=== PATIENT | male | born 1980 | race Caucasian/White ===

== ENCOUNTER 2021-09-02 18:29 | Outpatient (CLI) | payer MEDICAID | END 2021-09-02 18:30 | disposition critical access hospital (66) | LOC: EMS 18:29 | DX: R41.82 Altered mental status, unspecified (principal); R06.89 Other abnormalities of breathing | CPT/HCPCS: A0425; A0427; A0999 ==

== ENCOUNTER 2021-09-02 18:56 | Emergency (ER) | payer BC, MEDICAID ==
[2021-09-02] MEDS ORDERED: KETAMINE 500 MG/10 ML VIAL IM STA (19:04)
--- NOTE | 2021-09-02 19:12 | ED Physician Documentation ---
History of Present Illness - Stated complaint Stated Complaint: AMS - Chief complaint Chief Complaint: Neuro - History obtained from History obtained from: EMS - History of Present Illness Timing: Today Pain level max: 0 Pain level now: 0 - Additonal information Additional information: 41-year-old male was found in a parking lot in a vehicle with altered mental status. EMS gave Narcan and the patient is now awake and combative. Patient is incoherent and not making sense. No history available from patient. Review of Systems Unable to obtain: AMS, Intoxicated PD PAST MEDICAL HISTORY - Past Medical History Past Medical History: No - Present Medications Home Medications: Ambulatory Orders Medication Instructions Recorded Confirmed Home Medications Unobtainable 09/02/21 09/02/21 [HOME MEDICATIONS UNOBTAINABLE] - Allergies Allergies/Adverse Reactions: Allergies Allergy/AdvReac Type Severity Reaction Status Date / Time Unable to Assess Allergy Verified 09/02/21 19:06 - Living Situation Living Arrangement: reports: At home - Social History Does the pt drink ETOH?: Yes Does the pt have substance abuse?: Yes - Family History Family history: reports: Non contributory PD ED PE NORMAL - Vitals Vital signs reviewed: Yes - General General: Other (Patient is awake, alert, intermittently combative, confused. Unable to cooperate with history or physical) - HEENT HEENT: Atraumatic, PERRL, Moist mucous membranes - Neck Neck: Supple, no meningeal sign - Cardiac Cardiac: RRR - Respiratory Respiratory: No respiratory distress, Clear bilaterally - Abdomen Abdomen: Soft, Non tender, Non distended - Derm Derm: Warm and dry - Extremities Extremities: Normal ROM s pain - Neuro Neuro: Other (Alert) Eye Opening: Spontaneous Motor: Localizes to Pain Verbal: Confused GCS Score: 13 Results - Vitals Vitals: Vital Signs - 24 hr 09/02/21 09/02/21 09/02/21 19:06 19:21 19:38 Temperature 37.3 C 36.7 C Heart Rate 90 80 78 Respiratory 22 18 16 Rate Blood Pressure 136/89 H 136/89 H 143/82 H O2 Saturation 99 98 97 09/02/21 09/02/21 09/02/21 20:08 20:58 21:00 Temperature 37.2 C 36.7 C Heart Rate 74 76 79 Respiratory 15 13 12 Rate Blood Pressure 134/84 H 134/84 H 134/84 H O2 Saturation 98 99 96 09/02/21 09/02/21 09/02/21 21:24 21:33 21:56 Temperature Heart Rate 75 78 Respiratory 16 16 16 Rate Blood Pressure O2 Saturation 93 98 Oxygen O2 Source Room air - Labs Labs: Laboratory Tests 09/02/21 09/02/21 09/02/21 19:40 19:40 19:40 WBC 6.9 RBC 4.30 L Hgb 13.4 L Hct 38.0 L MCV 88.4 MCH 31.2 H MCHC 35.3 RDW 13.1 Plt Count 335 MPV 9.2 Neut # (Auto) 3.9 Lymph # (Auto) 2.6 [place] # (Auto) 0.4 Eos # (Auto) 0.0 Baso # (Auto) 0.1 Absolute Nucleated RBC 0.00 Nucleated RBC % 0.0 Sodium 141 Potassium 4.1 Chloride 101 Carbon Dioxide 25 Anion Gap 15.0 H BUN 14 Creatinine 0.7 Estimated GFR (MDRD) 124 Glucose 99 Calcium 9.6 Total Bilirubin 0.3 AST 39 ALT 52 Alkaline Phosphatase 54 Total Protein 8.0 Albumin 5.2 Globulin 2.8 Albumin/Globulin Ratio 1.9 Lipase 27 TSH 0.65 Urine Color Urine Clarity Urine pH Ur Specific [place] Urine Protein Urine Glucose (UA) Urine Ketones Urine Occult Blood Urine Nitrite Urine Bilirubin Urine Urobilinogen Ur Leukocyte Esterase Ur Microscopic Review Urine Culture Comments Salicylates < 6.0 Urine Opiates Screen Ur Oxycodone Screen Urine Methadone Screen Ur Propoxyphene Screen Acetaminophen < 10 L Ur Barbiturates Screen Ur Tricyclics Screen Ur Phencyclidine Scrn Ur Amphetamine Screen U Methamphetamines Scrn U Benzodiazepines Scrn Urine Cocaine Screen U Cannabinoids Screen Ethyl Alcohol 284.5 09/02/21 19:45 WBC RBC Hgb Hct MCV MCH MCHC RDW Plt Count MPV Neut # (Auto) Lymph # (Auto) [place] # (Auto) Eos # (Auto) Baso # (Auto) Absolute Nucleated RBC Nucleated RBC % Sodium Potassium Chloride Carbon Dioxide Anion Gap BUN Creatinine Estimated GFR (MDRD) Glucose Calcium Total Bilirubin AST ALT Alkaline Phosphatase Total Protein Albumin Globulin Albumin/Globulin Ratio Lipase TSH Urine Color YELLOW Urine Clarity CLEAR Urine pH 5.5 Ur Specific [place] 1.015 Urine Protein NEGATIVE Urine Glucose (UA) NEGATIVE Urine Ketones NEGATIVE Urine Occult Blood NEGATIVE Urine Nitrite NEGATIVE Urine Bilirubin NEGATIVE Urine Urobilinogen 0.2 (NORMAL) Ur Leukocyte Esterase NEGATIVE Ur Microscopic Review NOT INDICATED Urine Culture Comments NOT INDICATED Salicylates Urine Opiates Screen NEGATIVE Ur Oxycodone Screen NEGATIVE Urine Methadone Screen NEGATIVE Ur Propoxyphene Screen NEGATIVE Acetaminophen Ur Barbiturates Screen NEGATIVE Ur Tricyclics Screen NEGATIVE Ur Phencyclidine Scrn NEGATIVE Ur Amphetamine Screen NEGATIVE U Methamphetamines Scrn NEGATIVE U Benzodiazepines Scrn NEGATIVE Urine Cocaine Screen NEGATIVE U Cannabinoids Screen NEGATIVE Ethyl Alcohol PD MEDICAL DECISION MAKING - ED course Complexity details: reviewed results, re-evaluated patient, considered differential, d/w patient ED course: No acute findings on laboratory testing other than alcohol intoxication. No signs of trauma. He was found in his car. He was allowed to sober in the emergency department. Ambulating with a steady gait and requesting to go home at this time. His mother is comfortable coming to pick him up. Patient is not suicidal or homicidal. No evidence of injury. Patient counseled regarding signs and symptoms for which I believe and urgent re-evaluation would be necessary. Patient with good understanding of and agreement to plan and is comfortable going home at this time This document was made in part using voice recognition software. While efforts are made to proofread this document, sound alike and grammatical errors may occur. Patient apparently has a longstanding history of alcoholism. Does not want to go to rehab or detox Departure - Departure Disposition: 01 Home, Self Care Clinical Impression: Alcohol intoxication Qualifiers: Complication of substance-induced condition: uncomplicated Qualified Code(s): F10.920 - Alcohol use, unspecified with intoxication, uncomplicated Condition: Stable Instructions: ED Alcohol Intoxication Follow-Up: Your,doctor in 1 week [Other] Comments: Your alcohol level was 284 today, this is approximately 3-1/2 times the legal limit. I would recommend that you follow-up with your doctor to discuss detox and/or rehab. [facility] [address] [place] [id number] Crisis Line and is available to talk to someone
[2021-09-02 19:45] LABS: BASOPHILS # (AUTO) 0.1 10^3/uL (0.0-0.1); BASOPHILS % (AUTO) 0.9 %; EOSINOPHILS % (AUTO) 0.6 %; HGB - HEMOGLOBIN 13.4 g/dL (14.0-18.0); LYMPHOCYTES # (AUTO) 2.6 10^3/uL (1.5-3.5); LYMPHOCYTES % (AUTO) 36.9 %; MEAN CORPUSCULAR HEMOGLOBIN 31.2 pg (27.0-31.0); MEAN CORPUSCULAR HGB CONC 35.3 g/dL (32.0-36.0); MEAN CORPUSCULAR VOLUME 88.4 fL (80.0-94.0); MEAN PLATELET VOLUME 9.2 fL (7.4-11.4); MONOCYTES # (AUTO) 0.4 10^3/uL (0.0-1.0); MONOCYTES % (AUTO) 5.2 %; NEUTROPHILS # (AUTO) 3.9 10^3/uL (1.5-6.6); NEUTROPHILS % (AUTO) 56.3 %; PLT - PLATELET COUNT 335 10^3/uL (130-450); RED CELL DISTRIBUTION WIDTH 13.1 % (12.0-15.0); WHITE BLOOD COUNT 6.9 x10^3/uL (4.8-10.8)
[2021-09-02 19:54] LABS: MUDS CUTOFF CONCENTRATIONS CUTOFF CONC BELOW:
[2021-09-02 19:57] LABS: BILIRUBIN,URINE NEGATIVE (NEGATIVE); GLUCOSE, URINE (UA) NEGATIVE (NEGATIVE); KETONES,URINE (UA) NEGATIVE (NEGATIVE); LEUKOCYTE ESTERASE, URINE NEGATIVE (NEGATIVE); NITRITE,URINE NEGATIVE (NEGATIVE); OCCULT BLOOD,URINE NEGATIVE (NEGATIVE); PH,URINE 5.5 PH (5.0-7.5); PROTEIN,URINE NEGATIVE (NEGATIVE); UROBILINOGEN,URINE 0.2 (NORMAL) E.U./dL (NORMAL)
[2021-09-02 20:01] LABS: CLARITY,URINE CLEAR (CLEAR)
[2021-09-02 20:04] LABS: ACETAMINOPHEN < 10 ug/mL (10-30); ALBUMIN 5.2 g/dL (3.2-5.5); ALBUMIN/GLOBULIN RATIO 1.9 (1.0-2.2); ALKALINE PHOSPHATASE 54 IU/L (42-121); ALT ALANINE AMINOTRANSFERASE 52 IU/L (10-60); AST ASPARTATE AMINOTRANSFERASE 39 IU/L (10-42); BILIRUBIN,TOTAL 0.3 mg/dL (0.2-1.0); BUN - BLOOD UREA NITROGEN 14 mg/dL (6-20); CALCIUM 9.6 mg/dL (8.5-10.3); CARBON DIOXIDE - CO2 25 mmol/L (21-32); CHLORIDE 101 mmol/L (101-111); CREATININE 0.7 mg/dL (0.6-1.2); ETOH - ETHANOL 284.5 mg/dL; GFR - MDRD 124 (>89); GLUCOSE 99 mg/dL (70-100); LIPASE 27 U/L (22-51); POTASSIUM 4.1 mmol/L (3.5-5.0); SALICYLATE < 6.0 mg/dL; SODIUM 141 mmol/L (135-145)
[2021-09-02 20:08] LABS: AMPHETAMINE SCREEN,URINE NEGATIVE (NEGATIVE); BARBITURATE SCREEN,UR NEGATIVE (NEGATIVE); BENZODIAZEPINES SCREEN, URINE NEGATIVE (NEGATIVE); COCAINE SCREEN URINE NEGATIVE (NEGATIVE); METHADONE SCREEN, URINE NEGATIVE (NEGATIVE); METHAMPHETAMINES SCREEN, URINE NEGATIVE (NEGATIVE); OPIATE SCREEN, URINE NEGATIVE (NEGATIVE); OXYCODONE SCREEN, URINE NEGATIVE (NEGATIVE); PROPOXYPHENE SCREEN, URINE NEGATIVE (NEGATIVE); THC CANNABINOID SCREEN, URINE NEGATIVE (NEGATIVE); TRICYCLIC ANTIDEPRESSANT,URINE NEGATIVE (NEGATIVE)
[2021-09-02 22:12] VITALS: BP 111/79
== END 2021-09-02 23:00 | disposition home or self-care (01) ==
LOC: EDUNIT# → ED 18:56
DX: F10.920 Alcohol use, unspecified with intoxication, uncomplicated (principal)
CPT/HCPCS: 36415; 80053; 80306; 80307; 80320; 80329; 81001; 81003; 83690; 84443; 85025; 87086; 96372; 99281; 99284

== ENCOUNTER 2023-11-10 15:18 | Outpatient (CLI) | payer OTHER | END 2023-11-10 23:59 | disposition critical access hospital (66) | LOC: EMS 15:18 | PROVIDERS: ATTEND Emergency Medicine | DX: I95.9 Hypotension, unspecified (principal); R10.9 Unspecified abdominal pain; R40.4 Transient alteration of awareness; F10.90 Alcohol use, unspecified, uncomplicated; R23.2 Flushing | CPT/HCPCS: A0425; A0427 ==

== ENCOUNTER 2023-11-10 15:50 | Inpatient (IN) | payer MEDICAID, OTHER ==
[2023-11-10] MEDS ORDERED: iohexoL-300 100 ML VIAL ONE (16:03)
[2023-11-10 16:22] LABS: BASOPHILS # (AUTO) 0.1 10^3/uL (0.0-0.1); BASOPHILS % (AUTO) 0.4 %; EOSINOPHILS # (AUTO) 0.2 10^3/uL (0.0-0.7); EOSINOPHILS % (AUTO) 1.3 %; HCT - HEMATOCRIT 35.5 % (42.0-52.0); HGB - HEMOGLOBIN 11.9 g/dL (14.0-18.0); LYMPHOCYTES # (AUTO) 2.2 10^3/uL (1.5-3.5); LYMPHOCYTES % (AUTO) 17.2 %; MEAN CORPUSCULAR HEMOGLOBIN 31.6 pg (27.0-31.0); MEAN CORPUSCULAR HGB CONC 33.5 g/dL (32.0-36.0); MEAN CORPUSCULAR VOLUME 94.4 fL (80.0-94.0); MEAN PLATELET VOLUME 9.6 fL (7.4-11.4); MONOCYTES # (AUTO) 0.5 10^3/uL (0.0-1.0); MONOCYTES % (AUTO) 3.7 %; NEUTROPHILS # (AUTO) 9.7 10^3/uL (1.5-6.6); NEUTROPHILS % (AUTO) 77.1 %; PLT - PLATELET COUNT 232 10^3/uL (130-450); RED BLOOD COUNT 3.76 10^6/uL (4.70-6.10); WHITE BLOOD COUNT 12.6 x10^3/uL (4.8-10.8)
[2023-11-10] MEDS: SODIUM CHLORIDE 0.9% 1,000 ML IV STA ×3 (16:22→17:01)
[2023-11-10] MEDS: PANTOPRAZOLE 40 MG VIAL IVP STA ×2 (16:24→16:43)
--- NOTE | 2023-11-10 16:25 | ED Physician Documentation ---
PD HPI SYNCOPE - Stated complaint Stated Complaint: ALOC - Chief complaint Chief Complaint: Neuro - History obtained from History obtained from: Patient - History of Present Illness Witnessed: Witnessed Preceding symptoms: Diaphoresis. No: Chest pain Associated symptoms: No: Seizure, Incontinant of urine, Incontinant of stool, Headache, Nausea / vomiting Contributing factors: No: Recent med change Injury occurred: No: Fell, Head injury, Neck injury Pain level max: 5 Pain level now: 5 - Additional information Additional information: Patient is a 43-year-old male who presents to the emergency department after a syncopal event today. He states that he was at his job site when he felt lightheaded dizzy and "passed out". He states he has abdominal pain because he feels like he has to have a bowel movement. He states that he was sweaty. He does not think he had any chest pain. He states that he is an alcoholic. Has been in and out of rehab and detox in the past. Denies any head injury. No headache. EMS was unable to start an IV, they placed an IO in the left tibia. He is hypotensive upon arrival. He states he has been having epigastric abdominal pain for the past 2 days. Review of Systems Constitutional: denies: Fever Nose: denies: Rhinorrhea / runny nose, Congestion Cardiac: denies: Chest pain / pressure, Palpitations Respiratory: denies: Dyspnea, Cough, Wheezing : denies: Dysuria Skin: denies: Rash Musculoskeletal: denies: Neck pain, Back pain Neurologic: denies: Headache PD PAST MEDICAL HISTORY - Past Medical History Past Medical History: Yes Neuro: None HEENT: None - Past Surgical History Past Surgical History: No - Present Medications Home Medications: Ambulatory Orders Medication Instructions Recorded Confirmed Buprenorphine HCl/Naloxone HCl 8 mg PO PRN PRN 11/10/23 11/10/23 [Suboxone 8 mg-2 mg Sl Film] Buspirone HCl 15 mg PO DAILY 11/10/23 11/10/23 Lisinopril [Zestril] 40 mg PO DAILY 11/10/23 11/10/23 - Allergies Allergies/Adverse Reactions: Allergies Allergy/AdvReac Type Severity Reaction Status Date / Time No Known Drug Allergies Allergy Verified 11/10/23 16:01 - Social History Does the pt smoke?: Yes Smoking Status: Current every day smoker Does the pt drink ETOH?: Yes Does the pt have substance abuse?: Yes - POLST Patient has POLST: No PD ED PE NORMAL - Vitals Vital signs reviewed: Yes - General General: Alert and oriented X 3, No acute distress, Well developed/nourished - HEENT HEENT: PERRL, Moist mucous membranes, Pharynx benign - Neck Neck: Supple, no meningeal sign - Cardiac Cardiac: RRR - Respiratory Respiratory: No respiratory distress, Clear bilaterally - Abdomen Abdomen: Soft, Non distended, Other (Diffuse tenderness to palpation. No peritoneal signs) - Back Back: No spinal TTP - Derm Derm: Warm and dry - Extremities Extremities: Other (IO in the left tibia) - Neuro Neuro: Alert and oriented X 3 - Psych Psych: Normal mood, Normal affect Results - Vitals Vitals: Vital Signs - 24 hr 11/10/23 11/10/23 11/10/23 15:57 16:00 16:10 Temperature 37.3 C Heart Rate 87 81 76 Respiratory 12 19 13 Rate Blood Pressure 54/27 L 89/73 L 65/30 L O2 Saturation 86 L 96 95 If not protocol 4 4 : Oxygen Flow, liters/minute 11/10/23 11/10/23 11/10/23 16:20 16:30 16:52 Temperature Heart Rate 75 66 Respiratory 18 14 Rate Blood Pressure 51/28 L 77/41 L 90/43 L O2 Saturation 95 100 If not protocol 4 4 : Oxygen Flow, liters/minute 11/10/23 11/10/23 11/10/23 17:04 17:34 17:47 Temperature Heart Rate 68 67 71 Respiratory 15 18 18 Rate Blood Pressure 97/49 L 109/57 L 96/60 O2 Saturation 99 98 98 If not protocol : Oxygen Flow, liters/minute 11/10/23 11/10/23 11/10/23 18:10 18:30 19:00 Temperature Heart Rate 64 73 67 Respiratory 18 18 18 Rate Blood Pressure 113/69 127/63 137/68 H O2 Saturation 98 94 98 If not protocol : Oxygen Flow, liters/minute 11/10/23 20:28 Temperature Heart Rate 71 Respiratory 16 Rate Blood Pressure 136/78 H O2 Saturation 99 If not protocol : Oxygen Flow, liters/minute Oxygen O2 Source Room air - EKG (time done) 1645 EKG releavant findings:: EKG personally interpreted by author of this note. Relevant findings are: Rate: Rate (enter#) (66) Rhythm: NSR [place]: Normal Intervals: Normal SC QRS: Normal Ischemia: Normal ST segments - Labs Labs: Laboratory Tests 11/10/23 11/10/23 11/10/23 16:12 16:12 16:12 WBC 12.6 H RBC 3.76 L Hgb 11.9 L Hct 35.5 L MCV 94.4 H MCH 31.6 H MCHC 33.5 RDW 13.0 Plt Count 232 MPV 9.6 Neut # (Auto) 9.7 H Lymph # (Auto) 2.2 [place] # (Auto) 0.5 Eos # (Auto) 0.2 Baso # (Auto) 0.1 Absolute Nucleated RBC 0.00 Nucleated RBC % 0.0 PT INR APTT Sodium 129 L Potassium 3.7 Chloride 90 L Carbon Dioxide 23 Anion Gap 16.0 H BUN 25 H Creatinine 1.9 H Estimated GFR (MDRD) 39 L Glucose 106 H Lactic Acid Calcium 9.5 Magnesium 1.6 L Total Bilirubin 0.4 AST 59 H ALT 51 Alkaline Phosphatase 64 Troponin I High Sens 10.0 Total Protein 6.6 Albumin 4.1 Globulin 2.5 Albumin/Globulin Ratio 1.6 Lipase 15 TSH 1.64 Urine Color Urine Clarity Urine pH Ur Specific [place] Urine Protein Urine Glucose (UA) Urine Ketones Urine Occult Blood Urine Nitrite Urine Bilirubin Urine Urobilinogen Ur Leukocyte Esterase Ur Microscopic Review Urine Culture Comments Stl C. diff Tox B Gene Salicylates < 1.5 Urine Opiates Screen Ur Buprenorphine Scrn Ur Oxycodone Screen Urine Methadone Screen Acetaminophen 0.5 Ur Barbiturates Screen Ur Tricyclics Screen Ur Phencyclidine Scrn Ur Amphetamine Screen U Methamphetamines Scrn U Benzodiazepines Scrn Urine Cocaine Screen U Cannabinoids Screen Ur Drug Screen Comment Ethyl Alcohol 172.6 11/10/23 11/10/23 11/10/23 16:12 16:12 17:50 WBC RBC Hgb Hct MCV MCH MCHC RDW Plt Count MPV Neut # (Auto) Lymph # (Auto) [place] # (Auto) Eos # (Auto) Baso # (Auto) Absolute Nucleated RBC Nucleated RBC % PT 12.0 INR 1.1 APTT 23.8 L Sodium Potassium Chloride Carbon Dioxide Anion Gap BUN Creatinine Estimated GFR (MDRD) Glucose Lactic Acid 5.5 H* Calcium Magnesium Total Bilirubin AST ALT Alkaline Phosphatase Troponin I High Sens Total Protein Albumin Globulin Albumin/Globulin Ratio Lipase TSH Urine Color YELLOW Urine Clarity CLEAR Urine pH 6.5 Ur Specific [place] <=1.005 Urine Protein NEGATIVE Urine Glucose (UA) NEGATIVE Urine Ketones NEGATIVE Urine Occult Blood NEGATIVE Urine Nitrite NEGATIVE Urine Bilirubin NEGATIVE Urine Urobilinogen 0.2 (NORMAL) Ur Leukocyte Esterase NEGATIVE Ur Microscopic Review NOT INDICATED Urine Culture Comments NOT INDICATED Stl C. diff Tox B Gene Salicylates Urine Opiates Screen NEGATIVE Ur Buprenorphine Scrn POSITIVE H Ur Oxycodone Screen NEGATIVE Urine Methadone Screen NEGATIVE Acetaminophen Ur Barbiturates Screen NEGATIVE Ur Tricyclics Screen NEGATIVE Ur Phencyclidine Scrn NEGATIVE Ur Amphetamine Screen NEGATIVE U Methamphetamines Scrn NEGATIVE U Benzodiazepines Scrn NEGATIVE Urine Cocaine Screen NEGATIVE U Cannabinoids Screen NEGATIVE Ur Drug Screen Comment CUTOFF CONC BELOW: Ethyl Alcohol 11/10/23 18:25 WBC RBC Hgb Hct MCV MCH MCHC RDW Plt Count MPV Neut # (Auto) Lymph # (Auto) [place] # (Auto) Eos # (Auto) Baso # (Auto) Absolute Nucleated RBC Nucleated RBC % PT INR APTT Sodium Potassium Chloride Carbon Dioxide Anion Gap BUN Creatinine Estimated GFR (MDRD) Glucose Lactic Acid Calcium Magnesium Total Bilirubin AST ALT Alkaline Phosphatase Troponin I High Sens Total Protein Albumin Globulin Albumin/Globulin Ratio Lipase TSH Urine Color Urine Clarity Urine pH Ur Specific [place] Urine Protein Urine Glucose (UA) Urine Ketones Urine Occult Blood Urine Nitrite Urine Bilirubin Urine Urobilinogen Ur Leukocyte Esterase Ur Microscopic Review Urine Culture Comments Stl C. diff Tox B Gene POSITIVE A* Salicylates Urine Opiates Screen Ur Buprenorphine Scrn Ur Oxycodone Screen Urine Methadone Screen Acetaminophen Ur Barbiturates Screen Ur Tricyclics Screen Ur Phencyclidine Scrn Ur Amphetamine Screen U Methamphetamines Scrn U Benzodiazepines Scrn Urine Cocaine Screen U Cannabinoids Screen Ur Drug Screen Comment Ethyl Alcohol - Rads (name of study) CT abd pelvis Relevant Findings:: Final report received, See rad report cxr Relevant Findings:: Final report received, See rad report PD Medical Decision Making - ED course Complexity details: reviewed results, re-evaluated patient, considered differential, d/w patient, d/w transformation consultant ED course: Patient had a left-sided tibial IO started by EMS. I placed a IV in his right AC upon arrival. IV fluids were given. He was significantly hypotensive upon arrival, 54/27, likely the cause of his syncope. He was having abdominal pain, concern for potential aortic dissection or aneurysm rupture. CT scan angio was performed of the abdomen and pelvis. Normal aorta but does show diffuse colitis. Patient had 2 bowel movements here, the first was slightly loose, the second was more watery with blood in the stool. Stool culture was sent. C. difficile testing was sent as well. His baseline creatinine is around 0.6. Elevated at 1.9 today. Blood pressure responded well to IV fluids. Has an elevated white blood cell count. Given the acute renal insufficiency, complicated colitis with elevated white blood cell count, syncope and hypotension, will discuss the case with the hospitalist for inpatient treatment. Patient's lactate also came back significantly elevated at 5.5. Patient was given IV ciprofloxacin and Flagyl for the pancolitis. Later in the emergency department stay he did come back positive for C. difficile as he was being taken over to the medical surgical floor. Patient is feeling better, but states that he is concerned about going into alcohol withdrawal, informed him that we can help treat this while he is in the hospital. The telemetry hospitalist also requested that I consult general surgery, spoke with Dr. Crowder. The nighttime hospitalist stated that he could consult on the patient in the morning, it did not need to be tonight. Likely that the patient small amount of blood in the stool is likely to the C. difficile. Dr. Crowder will see the patient in the morning. Departure - Departure Disposition: 66 [facility] DC/Xfer Clinical Impression: Colitis, EITAN (acute kidney injury), Dehydration, C. difficile colitis Syncope Qualifiers: Syncope type: unspecified Qualified Code(s): R55 - Syncope and collapse Hypotension Qualifiers: Hypotension type: unspecified hypotension type Qualified Code(s): I95.9 - Hypotension, unspecified Alcohol intoxication Qualifiers: Complication of substance-induced condition: uncomplicated Qualified Code(s): F10.920 - Alcohol use, unspecified with intoxication, uncomplicated Sepsis Qualifiers: Sepsis type: sepsis due to unspecified organism Sepsis acute organ dysfunction status: with acute organ dysfunction Severe sepsis acute organ dysfunction type: acute renal failure Acute renal failure type: unspecified Severe sepsis shock status: unspecified Qualified Code(s): A41.9 - Sepsis, unspecified organism; R65.20 - Severe sepsis without septic shock; N17.9 - Acute kidney failure, unspecified Condition: Stable Discharge Date/Time: 11/10/23 23:14
[2023-11-10 16:31] LABS: MAGNESIUM 1.6 mg/dL (1.7-2.3)
[2023-11-10 16:37] LABS: ACETAMINOPHEN 0.5 ug/mL; ETOH - ETHANOL 172.6 mg/dL; LIPASE 15 U/L (11-82)
[2023-11-10] MEDS: iohexoL-300 100 ML VIAL IVP ONE (16:41)
[2023-11-10 16:50] LABS: ALBUMIN 4.1 g/dL (3.2-5.5); ALBUMIN/GLOBULIN RATIO 1.6 (1.0-2.2); ALKALINE PHOSPHATASE 64 IU/L (42-121); ALT ALANINE AMINOTRANSFERASE 51 IU/L (10-60); AST ASPARTATE AMINOTRANSFERASE 59 IU/L (10-42); BILIRUBIN,TOTAL 0.4 mg/dL (0.2-1.0); BUN - BLOOD UREA NITROGEN 25 mg/dL (6-20); CALCIUM 9.5 mg/dL (8.5-10.3); CARBON DIOXIDE - CO2 23 mmol/L (21-32); CHLORIDE 90 mmol/L (101-111); CREATININE 1.9 mg/dL (0.6-1.3); GFR - MDRD 39 (>89); GLUCOSE 106 mg/dL (74-104); POTASSIUM 3.7 mmol/L (3.5-4.5); SODIUM 129 mmol/L (135-145); THYROID STIMULATING HORMONE 1.64 uIU/mL (0.34-5.60); TOTAL PROTEIN 6.6 g/dL (6.4-8.9)
--- NOTE | 2023-11-10 16:52 | CT Report ---
PROCEDURE: Angio Abdomen/Pelvis INDICATIONS: diffuse abd pain, syncope CONTRAST: Omni 300 80ml TECHNIQUE: After the administration of intravenous contrast, 2.5 mm thick sections acquired from the diaphragm t o the symphysis. 10 mm maximum-intensity projection (MIP) reformats were then acquired. For radiati on dose reduction, the following was used: automated exposure control, adjustment of mA and/or kV ac cording to patient size. COMPARISON: None. FINDINGS: Image quality: Excellent. Aorta: No acute aortic syndrome. Mesenteric arteries: Celiac trunk, superior and inferior mesenteric arteries appear patent. Right pelvic arteries: Unremarkable. Left pelvic arteries: Unremarkable. Extravascular soft tissues: Dependent atelectasis. Wall thickening of the esophagus. Heart size is no rmal. Hepatic steatosis. No splenomegaly. Gallbladder is unremarkable. Biliary system is non dilated . Pancreas enhances normally. No adrenal nodules. Kidneys are normal in size and enhancement, with out hydronephrosis. Diffuse thickening of the colonic wall. No free fluid or air. No retroperitoneal or mesenteric adenopathy. No ventral hernias. No suspicious bony lesions. No vertebral body compr ession fractures. Small left inguinal hernia containing fat. Trace gas within the subcutaneous vascu lature of the left groin. No evidence of appendicitis. Appendicolith is present. IMPRESSION: No evidence of acute aortic syndrome. Pancolitis, possibly C. difficile. Trace gas within the left, probably within the venous system. Correlate with recent instrumentation. Esophageal wall thickening, probably esophagitis, but malignancy is also a consideration. Consider sh ort-term follow-up with chest CT versus GI referral. Reviewed by: Tigre Mcelroy MD on 11/10/2023 4:50 PM PDT Approved by: Tigre Mcelroy MD on 11/10/2023 4:50 PM PDT Station ID: [id number]
--- NOTE | 2023-11-10 16:52 | XRAY Report ---
PROCEDURE: Chest 1V INDICATIONS: syncope TECHNIQUE: One view of the chest was acquired. COMPARISON: None. FINDINGS: Surgical changes and devices: None. Lungs and pleura: No pleural effusions or pneumothorax. Lungs are clear. Mediastinum: Mediastinal contours appear normal. Heart size is normal. Bones and chest wall: No suspicious bony lesions. Overlying soft tissues appear unremarkable. IMPRESSION: No acute cardiopulmonary process. Reviewed by: Tigre Mcelroy MD on 11/10/2023 4:51 PM PDT Approved by: Tigre Mcelroy MD on 11/10/2023 4:51 PM PDT Station ID: [id number]
[2023-11-10] MEDS ORDERED: PANTOPRAZOLE 40 MG VIAL IVP STA (16:58)
[2023-11-10 17:09] LABS: SALICYLATE < 1.5 mg/dL
[2023-11-10 17:59] LABS: BILIRUBIN,URINE NEGATIVE (NEGATIVE); GLUCOSE, URINE (UA) NEGATIVE (NEGATIVE); KETONES,URINE (UA) NEGATIVE (NEGATIVE); LEUKOCYTE ESTERASE, URINE NEGATIVE (NEGATIVE); NITRITE,URINE NEGATIVE (NEGATIVE); OCCULT BLOOD,URINE NEGATIVE (NEGATIVE); PH,URINE 6.5 PH (5.0-7.5); PROTEIN,URINE NEGATIVE (NEGATIVE); UROBILINOGEN,URINE 0.2 (NORMAL) E.U./dL (NORMAL)
[2023-11-10 18:00] LABS: CLARITY,URINE CLEAR (CLEAR)
[2023-11-10 18:10] LABS: AMPHETAMINE SCREEN,URINE NEGATIVE (NEGATIVE); BARBITURATE SCREEN,UR NEGATIVE (NEGATIVE); BENZODIAZEPINES SCREEN, URINE NEGATIVE (NEGATIVE); BUPRENORPHINE SCREEN, URINE POSITIVE (NEGATIVE); COCAINE SCREEN URINE NEGATIVE (NEGATIVE); METHADONE SCREEN, URINE NEGATIVE (NEGATIVE); METHAMPHETAMINES SCREEN, URINE NEGATIVE (NEGATIVE); OPIATE SCREEN, URINE NEGATIVE (NEGATIVE); OXYCODONE SCREEN, URINE NEGATIVE (NEGATIVE); THC CANNABINOID SCREEN, URINE NEGATIVE (NEGATIVE); TRICYCLIC ANTIDEPRESSANT,URINE NEGATIVE (NEGATIVE)
[2023-11-10] MEDS: HYDROmorphone 1 MG/ML CARPUJECT IVP STA ×3 (19:31→23:17)
[2023-11-10] MEDS: metroNIDAZOLE 500 MG/100 ML 500 MG/100 ML BAG IV ONE (19:45)
--- NOTE | 2023-11-10 20:18 | HISTORY & PHYSICAL EXAMINATION ---
Chief Complaint - Chief Complaint Chief Complaint: syncope, weakness History of Present Illness - History of Present Illness HPI Comment/Other: pt presents with syncopal episode that occurred while at work. he was placing tiles at someone's house and head to use the bathroom, and on his way, he felt dizzy and ended up waking up on the floor. he states he soiled himself (stool) twice. no chest pain but does report palpitations. he states having syncopal episode in the past but "not like this." has not been seen by a medical provider for some time. smokes 1 ppd x 20+ yr and has relapsed into drinking etoh (1/5 vodka) daily. h/o withdrawal and DTs. no fevers but feels dehydrated. History - Past Medical History Neuro: reports: None HEENT: reports: None MRSA Hx?: No - POLST Patient has POLST: No Meds/Allgy - Home Medications Home Medications: Ambulatory Orders Medication Instructions Recorded Confirmed Buprenorphine HCl/Naloxone HCl 8 mg PO PRN PRN 11/10/23 11/10/23 [Suboxone 8 mg-2 mg Sl Film] Buspirone HCl 15 mg PO DAILY 11/10/23 11/10/23 Lisinopril [Zestril] 40 mg PO DAILY 11/10/23 11/10/23 - Allergies Allergies/Adverse Reactions: Allergies Allergy/AdvReac Type Severity Reaction Status Date / Time No Known Drug Allergies Allergy Verified 11/10/23 16:01 Review of Systems - Other Findings Other Findings: 14 pt review done with positives per hpi; all others reviewed as negative Exam - Vital Signs Vital Signs: Vital Signs x48h Temp Pulse Resp BP Pulse Ox O2 Flow Rate 11/10/23 19:00 67 18 137/68 H 98 11/10/23 18:30 73 18 127/63 94 11/10/23 18:10 64 18 113/69 98 11/10/23 17:47 71 18 96/60 98 11/10/23 17:34 67 18 109/57 L 98 11/10/23 17:04 68 15 97/49 L 99 11/10/23 16:52 66 14 90/43 L 100 4 11/10/23 16:30 77/41 L 4 11/10/23 16:20 75 18 51/28 L 95 11/10/23 16:10 76 13 65/30 L 95 4 11/10/23 16:00 81 19 89/73 L 96 4 11/10/23 15:57 37.3 C 87 12 54/27 L 86 L - Physical Exam Comments/Other: gen - aaox3, nad, polite with questions heent - eomi, nc/at heart - per ed charting lungs - per ed charting abd - some mild reported tenderness / cramping msk - no acute trauma, rom intact Conclusion/Plan - Lab Results Fish Bones: 11/10/23 22:11 11/10/23 22:11 - Other Other Results/Comments: pt with - - syncope and collapse without neuro deficits head CT ordered check 2d echo likely d/t volume depletion + hypotension - dung d/t volume depletion resolved s/p fluids and repeat check renal sono ordered continue IVF - colitis c. diff positive po vanc and iv flagyl contributory to above and hypotension - bloody stools d/t colitis above check fobt general surgery to also be consulted by ED ppi -etoh abuse with h/o withdrawal and DTs ciwa protocol - esophagitis contributory to abd pain likely exacerbated d/t etoh abuse concern for malignacy as well --> check chest CT may need upper and lower endoscopy - hypotension in setting of above ivf, supportive mgmt - lactic acidosis d/t above repeat, continue IVF - tobacco abuse contributory to overall debility smokes 1 ppd x 20+ yr counseled to stop f/u labs, stool studies, electrolytes further orders per clinical course
[2023-11-10 20:19] LABS: PARTIAL THROMBOPLASTIN TIME 23.8 secs (24.9-33.3)
[2023-11-10 20:24] LABS: INR 1.1 (0.8-1.2)
[2023-11-10] MEDS: CIPROFLOXACIN 400 MG/200 ML 400 MG/200 ML BAG IV STA (21:20)
[2023-11-10] MEDS ORDERED: CIPROFLOXACIN 400 MG/200 ML 400 MG/200 ML BAG IV SCH (22:00)
[2023-11-10 22:17] LABS: BASOPHILS % (AUTO) 0.3 %; EOSINOPHILS % (AUTO) 0.3 %; HCT - HEMATOCRIT 34.7 % (42.0-52.0); HGB - HEMOGLOBIN 11.4 g/dL (14.0-18.0); LYMPHOCYTES # (AUTO) 1.3 10^3/uL (1.5-3.5); LYMPHOCYTES % (AUTO) 12.3 %; MEAN CORPUSCULAR HEMOGLOBIN 31.1 pg (27.0-31.0); MEAN CORPUSCULAR HGB CONC 32.9 g/dL (32.0-36.0); MEAN CORPUSCULAR VOLUME 94.8 fL (80.0-94.0); MEAN PLATELET VOLUME 9.5 fL (7.4-11.4); MONOCYTES # (AUTO) 0.5 10^3/uL (0.0-1.0); MONOCYTES % (AUTO) 4.4 %; NEUTROPHILS # (AUTO) 8.9 10^3/uL (1.5-6.6); NEUTROPHILS % (AUTO) 82.6 %; PLT - PLATELET COUNT 190 10^3/uL (130-450); RED BLOOD COUNT 3.66 10^6/uL (4.70-6.10); RED CELL DISTRIBUTION WIDTH 13.1 % (12.0-15.0); WHITE BLOOD COUNT 10.8 x10^3/uL (4.8-10.8)
[2023-11-10 22:39] LABS: ALBUMIN 4.1 g/dL (3.2-5.5); ALBUMIN/GLOBULIN RATIO 1.8 (1.0-2.2); BILIRUBIN,TOTAL 0.5 mg/dL (0.2-1.0); CALCIUM 9.1 mg/dL (8.5-10.3); CHOL/HDL RATIO 3.1 (<5.0); CHOLESTEROL 187 mg/dL; CREATININE 1.3 mg/dL (0.6-1.3); HDL CHOLESTEROL 61 mg/dL; LDL CHOLESTEROL,CALCULATED 98 mg/dL; LDL/HDL RATIO 1.6 (<3.6); MAGNESIUM 1.5 mg/dL (1.7-2.3); POTASSIUM 4.4 mmol/L (3.5-4.5); TOTAL PROTEIN 6.4 g/dL (6.4-8.9); TRIGLYCERIDES 142 mg/dL (48-352); VLDL CHOLESTEROL 28 mg/dL
[2023-11-10 22:48] LABS: PROCALCITONIN 0.21 ng/mL (<0.5)
[2023-11-10 23:01] LABS: THYROID STIMULATING HORMONE 1.01 uIU/mL (0.34-5.60)
[2023-11-10] MEDS: SODIUM CHLORIDE FLUSH 0.9% 10 ML SYRINGE IVP SCH (23:18)
[2023-11-10] MEDS: ONDANSETRON ODT 4 MG TABLET TL PRN (23:22)
[2023-11-11] MEDS: SODIUM CHLORIDE 0.9% 1,000 ML IV STA (00:46)
--- NOTE | 2023-11-11 00:47 | CT Report ---
PROCEDURE: Head WO INDICATIONS: syncope TECHNIQUE: Noncontrast 4.5 mm thick angled axial sections acquired from the foramen magnum to the vertex. For r adiation dose reduction, the following was used: automated exposure control, adjustment of mA and/or kV according to patient size. COMPARISON: None. FINDINGS: Image quality: Excellent. CSF spaces: Basal cisterns are patent. No extra-axial fluid collections. Ventricles are normal in size and shape. Brain: No midline shift. No intracranial masses or hemorrhage. [place]-white matter interface is norm al. Skull and face: Calvarium and visualized facial bones are intact, without suspicious lesions. Sinuses: Visualized sinuses and mastoids are clear. IMPRESSION: No acute intracranial pathology. Reviewed by: Manuel Walters MD on 11/11/2023 12:45 AM PDT Approved by: Manuel Walters MD on 11/11/2023 12:45 AM PDT Station ID: [id number]
[2023-11-11] MEDS: VANCOMYCIN 125 MG CAPSULE PO SCH (00:50)
--- NOTE | 2023-11-11 00:51 | CT Report ---
PROCEDURE: Chest WO INDICATIONS: esophagitis, malignancy TECHNIQUE: A CT scan of the chest was performed. Intravenous contrast media was not administered. Images were re corded and evaluated at appropriate window settings. Reformats: axial MIP of the chest, coronal and s agittal. For radiation dose reduction, the following was used: automated exposure control, adjustment of mA and/or kV according to patient size. COMPARISON: Chest radiograph dated 11/10/[address] angiogram of abdomen and pelvis dated 11/10/2023. FINDINGS: Image quality: Diagnostic. Chest wall and lower neck: No thyroid nodule which requires sonographic follow up. No axillary or sup raclavicular adenopathy by size. Lungs and pleura: A few small air space opacities are noted in bilateral upper lobes near apices slig htly more prominent on the left side. Small infiltrate versus atelectasis in posterior aspect of bila teral lower lobes are also seen. No pleural effusions. No pneumothorax. No suspicious pulmonary nodu les which require follow up. Mediastinum: Heart size is mildly enlarged. No pericardial effusion. No large vessel abnormality. No mediastinal adenopathy by size criteria. There is a small hiatal hernia with mild mid to distal esop hageal wall thickening concerning for esophagitis. No discrete esophageal wall mass is seen. Bones: No aggressive osseous abnormality. Upper Abdomen: Hepatic steatosis is noted.. IMPRESSION: 1. A few scattered air space opacities seen in bilateral lung [place] as described above more notably in left upper lobe. Finding is suggestive of small scattered infiltrates versus atelectasis. No suspi cious pulmonary nodule or mass is seen. Airway is patent. No pleural effusion or pneumothorax. 2. Suggestion of mid to distal esophagitis and small hiatal hernia. No definite esophageal wall mass is seen. TIA correlation is recommended. 3. No gross mediastinal or hilar lymphadenopathy. Reviewed by: Manuel Finn MD on 11/11/2023 12:50 AM PDT Approved by: Manuel Finn MD on 11/11/2023 12:50 AM PDT Station ID: [id number]
[2023-11-11] MEDS: LACTATED RINGERS 1,000 ML IV SCH (00:54)
[2023-11-11] MEDS: metroNIDAZOLE 500 MG/100 ML 500 MG/100 ML BAG IV SCH (00:58)
[2023-11-11] MEDS: LORazepam 2 MG/ML VIAL IVP PRN (04:42)
[2023-11-11] MEDS: MORPHINE 2 MG/ML CARPUJECT IVP PRN (05:11)
[2023-11-11 05:34] LABS: BASOPHILS % (AUTO) 0.2 %; EOSINOPHILS # (AUTO) 0.1 10^3/uL (0.0-0.7); EOSINOPHILS % (AUTO) 1.5 %; HCT - HEMATOCRIT 32.9 % (42.0-52.0); HGB - HEMOGLOBIN 11.4 g/dL (14.0-18.0); LYMPHOCYTES # (AUTO) 1.2 10^3/uL (1.5-3.5); LYMPHOCYTES % (AUTO) 13.6 %; MEAN CORPUSCULAR HGB CONC 34.7 g/dL (32.0-36.0); MEAN CORPUSCULAR VOLUME 95.4 fL (80.0-94.0); MEAN PLATELET VOLUME 11.3 fL (7.4-11.4); MONOCYTES # (AUTO) 0.5 10^3/uL (0.0-1.0); MONOCYTES % (AUTO) 5.2 %; NEUTROPHILS # (AUTO) 6.8 10^3/uL (1.5-6.6); NEUTROPHILS % (AUTO) 79.2 %; PLT - PLATELET COUNT 147 10^3/uL (130-450); RED BLOOD COUNT 3.45 10^6/uL (4.70-6.10); RED CELL DISTRIBUTION WIDTH 13.3 % (12.0-15.0); WHITE BLOOD COUNT 8.6 x10^3/uL (4.8-10.8)
[2023-11-11 05:53] LABS: ALBUMIN/GLOBULIN RATIO 1.7 (1.0-2.2); BILIRUBIN,TOTAL 0.8 mg/dL (0.2-1.0); CALCIUM 9.1 mg/dL (8.5-10.3); MAGNESIUM 1.5 mg/dL (1.7-2.3); POTASSIUM 4.2 mmol/L (3.5-4.5); TOTAL PROTEIN 6.3 g/dL (6.4-8.9)
[2023-11-11 06:14] LABS: PLATELET ESTIMATE, MANUAL NORMAL (130-450,000) (NORMAL); PLATELET MORPHOLOGY NORMAL APPEARANCE (NORMAL)
--- NOTE | 2023-11-11 06:16 | CONSULTATION NOTE ---
Surgery Consult - Admit Date Hospital Admission Date: 11/10/23 - Consult Date Consult Date: 11/10/23 Requesting Provider: Gregorio - Chief Complaint Chief Complaint: Bloody stools - Home Meds/Allergies Home Medications: Patient History Medication Instructions Recorded Confirmed Buprenorphine HCl/Naloxone HCl 8 mg PO PRN PRN 11/10/23 11/10/23 [Suboxone 8 mg-2 mg Sl Film] Buspirone HCl 15 mg PO DAILY 11/10/23 11/10/23 Lisinopril [Zestril] 40 mg PO DAILY 11/10/23 11/10/23 Allergies/Adverse Reactions: Allergies Allergy/AdvReac Type Severity Reaction Status Date / Time No Known Drug Allergies Allergy Verified 11/10/23 16:01 - Vital Signs Vital Signs: Last Vital Signs Temp 98.4 F 11/11/23 04:34 Pulse 81 11/11/23 04:34 Resp 20 11/11/23 04:34 BP 132/78 H 11/11/23 04:34 Pulse Ox 94 11/11/23 04:34 O2 Flow Rate 4 11/11/23 01:03 Intake & Output: Intake & Output 11/08/23 11/09/23 11/10/23 11/11/23 23:59 23:59 23:59 23:59 Intake Total 3100 300 Output Total 300 Balance 3100 0 - Lab Results Result Diagrams: 11/11/23 04:53 11/11/23 04:53 - Consultation Note Consultation Note: General Surgery Consultation Note Assessment: 1) C. Diff enterocolitis with associated lower GI bleeding. The bleeding should cease as the C. Diff resolves. He has not required a blood transfusion since admission. Recommendation: 1) No indication for operative or endoscopic intervention at this time 2) Continue medical management strategy per Medical Hospitalist Team <><><><><><><><><><> Reason for Consultation GI Bleed DIANA Carbajal is a 43 year old male who experienced a syncopal episode yesterday associated with multiple liquid stools. In the ED he was found to be dehydrated, in early EITAN, and hypotensive. His initial bowel motions were normal but he did pass some blood tinged stool in the ED. He was admitted to the Medical Hospitalist Service and General Surgery was asked to evaluate him this morning due to the rectal bleeding. During his evaluation he was found to be C Diff positive. Solomon tells me he feels somewhat better than yesterday but continues to have diarrhea that is somewhat bloody. Past Medical History None although he admits to recent heavy drinking Past Surgical History None Current Medications See "Medication" section Allergies See "Allergy" section ROS Pertinent positives Fatigue, weakness, bloody diarrhea, mild abdominal pain All other reviewed systems negative Physical Examination Vital Signs: See "Vital Signs" section GENERAL APPEARANCE: Normal development, normal body habitus, normal grooming PSYCHIATRIC: AAO; Cooperative; Somewhat anxious EYES: Pupils equal, round and reactive to light, sclera anicteric EARS, NOSE, MOUTH, THROAT: Hearing normal, Oral mucous membranes moist and without lesions; NECK: No crepitus, lymphadenopathy, or thyromegaly LUNGS: Clear to auscultation without wheezing; No use of accessory muscles to breathe CARDIOVASCULAR: Heart-NSR without murmurs; Palpable carotid arteries ABD: Soft, non-distended; BS present; Minimal tenderness in epigastric region LYMPHATIC: Neck, Axillae, Groin no palpable adenopathy EXTREMITIES: No clubbing, cyanosis, infections SKIN: Anicteric; No rashes, lesions, Ulcerations Labs See "Labs" section Antibiotics: Vancomycin/Flagyl Imaging CTA Abd/Pelvis - diffuse colonic wall thickening; No extravasation into bowel lumen All images were personally reviewed by me for this encounter. Eyad Crowder MD, FACS General Surgery Service [phone]
[2023-11-11] MEDS: PANTOPRAZOLE 40 MG TABLET PO SCH (06:21)
[2023-11-11] MEDS: THIAMINE 100 MG TABLET PO SCH (08:20)
[2023-11-11] MEDS: LACTOBACILLUS RHAMNOSUS GG CAPSULE PO SCH (08:20)
[2023-11-11] MEDS: PRENATAL VITAMIN TABLET PO SCH (08:20)
[2023-11-11] MEDS: busPIRone 5 MG TABLET PO SCH (08:20)
[2023-11-11 09:50] LABS: ESTIMATED AVERAGE GLUCOSE 114 mg/dL (70-100); HEMOGLOBIN A1c% 5.6 % (4.27-6.07)
[2023-11-11] MEDS: chlordiazePOXIDE 25 MG CAPSULE PO SCH (10:51)
--- NOTE | 2023-11-11 14:38 | PROVIDER PROGRESS NOTE ---
Assessment/Plan - Problem List (1) C. difficile colitis Assessment/Plan: --Continue PO Vancomycin 125 mg QID for 10 total days. (2) EITAN (acute kidney injury) Assessment/Plan: --Resolved. (3) Alcohol intoxication Qualifiers: Complication of substance-induced condition: uncomplicated Qualified Code(s): F10.920 - Alcohol use, unspecified with intoxication, uncomplicated Assessment/Plan: --Endorses prior withdrawal seizures. He is currently in CIWA. Have added Eunice rium 25 mg QID. (4) Syncope Qualifiers: Syncope type: unspecified Qualified Code(s): R55 - Syncope and collapse Assessment/Plan: --No further syncopal episodes with ambulation. Likely occurred due to a combination of EtOH intoxication, infection, and dehydration. - Current Meds Current Meds: Current Medications Generic Name Dose Route Start Last Admin Trade Name Freq PRN Reason Stop Dose Admin Buspirone HCl 15 mg 11/11/23 09:00 11/11/23 08:20 Buspirone 5 Mg Tablet PO 15 mg DAILY DAPHNEY Administration Chlordiazepoxide HCl 25 mg 11/11/23 08:00 11/11/23 12:29 Chlordiazepoxide 25 Mg Capsule PO 25 mg Q6HR DAPHNEY Administration Lactated Ringer's 1,000 mls @ 100 mls/hr 11/10/23 22:00 11/11/23 09:22 Lr IV 100 mls/hr .Q10H DAPHNEY Administration Metronidazole 500 mg in 100 mls @ 100 mls/hr 11/10/23 22:00 11/11/23 13:41 Flagyl 500 Mg/100 Ml IV 100 mls/hr Q8H DAPHNEY Administration Lorazepam 1 mg 11/10/23 21:47 11/11/23 13:40 Lorazepam 2 Mg/Ml Vial IVP 1 mg Q30M PRN Administration CIWA >8 Protocol Morphine Sulfate 2 mg 11/11/23 04:35 11/11/23 13:14 Morphine 2 Mg/Ml Carpuject IVP 2 mg Q4H PRN Administration Severe Pain (Level 7-10) Ondansetron HCl 4 mg 11/10/23 21:50 11/10/23 23:22 Ondansetron Odt 4 Mg Tablet TL 4 mg Q6HR PRN Administration Nausea / Vomiting Pantoprazole Sodium 40 mg 11/11/23 07:00 11/11/23 06:21 Pantoprazole 40 Mg Tablet PO 40 mg QDAC DAPHNEY Administration Multivit/Folic Acid/Iron 1 tab 11/11/23 08:00 11/11/23 08:20 Vitamin Tablet PO 1 tab DAILYWM DAPHNEY Administration Sodium Chloride 10 ml 11/11/23 01:00 11/11/23 09:29 Sodium Chloride Flush 0.9% 10 Ml Syringe IVP Not Given 0100,0900,1700 DAPHNEY Thiamine HCl 100 mg 11/11/23 09:00 11/11/23 08:20 Thiamine 100 Mg Tablet PO 100 mg DAILY DAPHNEY Administration Vancomycin HCl 125 mg 11/10/23 23:45 11/11/23 12:23 Vancomycin 125 Mg Capsule PO 125 mg QID DAPHNEY Administration - Lab Result Fish Bone Diagrams: 11/11/23 04:53 11/11/23 04:53 - Additional Planning My Orders: My Active Orders 11/11/23 08:00 chlordiazePOXIDE [Librium] 25 mg PO Q6HR 11/11/23 10:17 NPO except Meds [DIET] 11/11/23 17:00 Saccharomyces Boulardii [Florastor] 500 mg PO BIDWM 11/12/23 05:00 BMP - BASIC METABOLIC PANEL [CHEM] DAILYLAB CBC [CBC - COMP BLD CT W/AUTO DIFF] [HEME] DAILYLAB 11/13/23 05:00 BMP - BASIC METABOLIC PANEL [CHEM] DAILYLAB CBC [CBC - COMP BLD CT W/AUTO DIFF] [HEME] DAILYLAB 11/14/23 05:00 BMP - BASIC METABOLIC PANEL [CHEM] DAILYLAB CBC [CBC - COMP BLD CT W/AUTO DIFF] [HEME] DAILYLAB 11/15/23 05:00 BMP - BASIC METABOLIC PANEL [CHEM] DAILYLAB CBC [CBC - COMP BLD CT W/AUTO DIFF] [HEME] DAILYLAB 11/16/23 05:00 BMP - BASIC METABOLIC PANEL [CHEM] DAILYLAB CBC [CBC - COMP BLD CT W/AUTO DIFF] [HEME] DAILYLAB Subjective - Subjective Patient Reports: Abdominal Pain, Other (Endorses prior history of withdrawal seizures.) Objective Vital Signs: Vital Signs - 24 hr 11/10/23 11/10/23 11/10/23 15:57 16:00 16:10 Temperature 37.3 C Heart Rate 87 81 76 Heart Rate [ Brachial] Respiratory 12 19 13 Rate Blood Pressure 54/27 L 89/73 L 65/30 L Blood Pressure [Left Brachial artery] O2 Saturation 86 L 96 95 If not protocol 4 4 : Oxygen Flow, liters/minute 11/10/23 11/10/23 11/10/23 16:20 16:30 16:52 Temperature Heart Rate 75 66 Heart Rate [ Brachial] Respiratory 18 14 Rate Blood Pressure 51/28 L 77/41 L 90/43 L Blood Pressure [Left Brachial artery] O2 Saturation 95 100 If not protocol 4 4 : Oxygen Flow, liters/minute 11/10/23 11/10/23 11/10/23 17:04 17:34 17:47 Temperature Heart Rate 68 67 71 Heart Rate [ Brachial] Respiratory 15 18 18 Rate Blood Pressure 97/49 L 109/57 L 96/60 Blood Pressure [Left Brachial artery] O2 Saturation 99 98 98 If not protocol : Oxygen Flow, liters/minute 11/10/23 11/10/23 11/10/23 18:10 18:30 19:00 Temperature Heart Rate 64 73 67 Heart Rate [ Brachial] Respiratory 18 18 18 Rate Blood Pressure 113/69 127/63 137/68 H Blood Pressure [Left Brachial artery] O2 Saturation 98 94 98 If not protocol : Oxygen Flow, liters/minute 11/10/23 11/11/23 11/11/23 20:28 00:00 01:03 Temperature 36.9 C Heart Rate 71 Heart Rate [ 76 Brachial] Respiratory 16 20 Rate Blood Pressure 136/78 H Blood Pressure 133/84 H [Left Brachial artery] O2 Saturation 99 99 If not protocol 4 : Oxygen Flow, liters/minute 11/11/23 11/11/23 11/11/23 04:34 08:00 13:20 Temperature 36.9 C 36.8 C 36.7 C Heart Rate Heart Rate [ 81 73 72 Brachial] Respiratory 20 18 18 Rate Blood Pressure Blood Pressure 132/78 H 155/82 H 134/85 H [Left Brachial artery] O2 Saturation 94 91 L 100 If not protocol : Oxygen Flow, liters/minute Oxygen O2 Source Room air I&O (Last 24 Hrs): Intake and Output Totals x24h 11/09/23 11/10/23 11/11/23 23:59 23:59 23:59 Intake Total 3100 1246.667 Output Total 350 Balance 3100 896.667 General: Alert, Oriented x3 Cardiovascular: Regular rate, Normal S1, Normal S2 Respiratory: Chest non-tender, No respiratory distress, Breath sounds nml Abdomen: Normal bowel sounds, Soft - Results Results: Laboratory Results WBC 8.6 x10^3/uL (4.8-10.8) 11/11/23 04:53 RBC 3.45 10^6/uL (4.70-6.10) L 11/11/23 04:53 Hgb 11.4 g/dL (14.0-18.0) L 11/11/23 04:53 Hct 32.9 % (42.0-52.0) L 11/11/23 04:53 MCV 95.4 fL (80.0-94.0) H 11/11/23 04:53 MCH 33.0 pg (27.0-31.0) H 11/11/23 04:53 MCHC 34.7 g/dL (32.0-36.0) 11/11/23 04:53 RDW 13.3 % (12.0-15.0) 11/11/23 04:53 Plt Count 147 10^3/uL (130-450) 11/11/23 04:53 MPV 11.3 fL (7.4-11.4) 11/11/23 04:53 Neut # (Auto) 6.8 10^3/uL (1.5-6.6) H 11/11/23 04:53 Lymph # (Auto) 1.2 10^3/uL (1.5-3.5) L 11/11/23 04:53 [place] # (Auto) 0.5 10^3/uL (0.0-1.0) 11/11/23 04:53 Eos # (Auto) 0.1 10^3/uL (0.0-0.7) 11/11/23 04:53 Baso # (Auto) 0.0 10^3/uL (0.0-0.1) 11/11/23 04:53 Absolute Nucleated RBC 0.00 x10^3/uL 11/11/23 04:53 Nucleated RBC % 0.0 /100WBC 11/11/23 04:53 Platelet Estimate NORMAL (130-450,000) (NORMAL) 11/11/23 04:53 Platelet Morphology NORMAL APPEARANCE (NORMAL) 11/11/23 04:53 PT 12.0 secs (9.9-12.6) 11/10/23 16:12 INR 1.1 (0.8-1.2) 11/10/23 16:12 APTT 23.8 secs (24.9-33.3) L 11/10/23 16:12 Sodium 135 mmol/L (135-145) 11/11/23 04:53 Potassium 4.2 mmol/L (3.5-4.5) 11/11/23 04:53 Chloride 102 mmol/L (101-111) 11/11/23 04:53 Carbon Dioxide 24 mmol/L (21-32) 11/11/23 04:53 Anion Gap 9.0 (6-13) 11/11/23 04:53 BUN 17 mg/dL (6-20) 11/11/23 04:53 Creatinine 1.0 mg/dL (0.6-1.3) 11/11/23 04:53 Estimated GFR (MDRD) 82 (>89) L 11/11/23 04:53 Glucose 94 mg/dL (74-104) 11/11/23 04:53 POC Whole Bld Glucose 84 mg/dL (70 - 100) 11/11/23 07:36 Estimat Average Glucose 114 mg/dL (70-100) H 11/10/23 22:11 Hemoglobin A1c % 5.6 % (4.27-6.07) 11/10/23 22:11 Lactic Acid 1.8 mmol/L (0.5-2.2) 11/10/23 22:11 Calcium 9.1 mg/dL (8.5-10.3) 11/11/23 04:53 Magnesium 1.5 mg/dL (1.7-2.3) L 11/11/23 04:53 Total Bilirubin 0.8 mg/dL (0.2-1.0) 11/11/23 04:53 AST 41 IU/L (10-42) 11/11/23 04:53 ALT 43 IU/L (10-60) 11/11/23 04:53 Alkaline Phosphatase 52 IU/L (42-121) 11/11/23 04:53 Troponin I High Sens 10.0 ng/L (2.3-19.7) 11/10/23 16:12 Total Protein 6.3 g/dL (6.4-8.9) L 11/11/23 04:53 Albumin 4.0 g/dL (3.2-5.5) 11/11/23 04:53 Globulin 2.3 g/dL (2.1-4.2) 11/11/23 04:53 Albumin/Globulin Ratio 1.7 (1.0-2.2) 11/11/23 04:53 Triglycerides 142 mg/dL (48-352) 11/10/23 22:11 Cholesterol 187 mg/dL (-200) 11/10/23 22:11 LDL Cholesterol, Calc 98 mg/dL (-129) 11/10/23 22:11 VLDL Cholesterol 28 mg/dL 11/10/23 22:11 HDL Cholesterol 61 mg/dL (60-) 11/10/23 22:11 LDL/HDL Ratio 1.6 (<3.6) 11/10/23 22:11 Cholesterol/HDL Ratio 3.1 (<5.0) 11/10/23 22:11 Lipase 15 U/L (11-82) 11/10/23 16:12 Vitamin B12 444 pg/mL (180-914) 11/11/23 04:53 Folate 11.3 ng/mL (5.90 - >24.8) 11/11/23 04:53 Procalcitonin Immunoas 0.21 ng/mL (<0.5) 11/10/23 22:11 TSH 1.01 uIU/mL (0.34-5.60) 11/10/23 22:11 Urine Color YELLOW 11/10/23 17:50 Urine Clarity CLEAR (CLEAR) 11/10/23 17:50 Urine pH 6.5 PH (5.0-7.5) 11/10/23 17:50 Ur Specific [place] <=1.005 (1.002-1.030) 11/10/23 17:50 Urine Protein NEGATIVE mg/dL (NEGATIVE) 11/10/23 17:50 Urine Glucose (UA) NEGATIVE mg/dL (NEGATIVE) 11/10/23 17:50 Urine Ketones NEGATIVE mg/dL (NEGATIVE) 11/10/23 17:50 Urine Occult Blood NEGATIVE (NEGATIVE) 11/10/23 17:50 Urine Nitrite NEGATIVE (NEGATIVE) 11/10/23 17:50 Urine Bilirubin NEGATIVE (NEGATIVE) 11/10/23 17:50 Urine Urobilinogen 0.2 (NORMAL) E.U./dL (NORMAL) 11/10/23 17:50 Ur Leukocyte Esterase NEGATIVE (NEGATIVE) 11/10/23 17:50 Ur Microscopic Review NOT INDICATED 11/10/23 17:50 Urine Culture Comments NOT INDICATED 11/10/23 17:50 Stl C. diff Tox B Gene POSITIVE (NEGATIVE) A* 11/10/23 18:25 Salicylates < 1.5 mg/dL 11/10/23 16:12 Urine Opiates Screen NEGATIVE (NEGATIVE) 11/10/23 17:50 Ur Buprenorphine Scrn POSITIVE (NEGATIVE) H 11/10/23 17:50 Ur Oxycodone Screen NEGATIVE (NEGATIVE) 11/10/23 17:50 Urine Methadone Screen NEGATIVE (NEGATIVE) 11/10/23 17:50 Acetaminophen 0.5 ug/mL 11/10/23 16:12 Ur Barbiturates Screen NEGATIVE (NEGATIVE) 11/10/23 17:50 Ur Tricyclics Screen NEGATIVE (NEGATIVE) 11/10/23 17:50 Ur Phencyclidine Scrn NEGATIVE (NEGATIVE) 11/10/23 17:50 Ur Amphetamine Screen NEGATIVE (NEGATIVE) 11/10/23 17:50 U Methamphetamines Scrn NEGATIVE (NEGATIVE) 11/10/23 17:50 U Benzodiazepines Scrn NEGATIVE (NEGATIVE) 11/10/23 17:50 Urine Cocaine Screen NEGATIVE (NEGATIVE) 11/10/23 17:50 U Cannabinoids Screen NEGATIVE (NEGATIVE) 11/10/23 17:50 Ur Drug Screen Comment CUTOFF CONC BELOW: 11/10/23 17:50 Ethyl Alcohol 172.6 mg/dL 11/10/23 16:12
[2023-11-11] MEDS: SACCHAROMYCES BOULARDII 250 MG CAPSULE PO SCH (16:06)
[2023-11-11] MEDS: ACETAMINOPHEN 325 MG TABLET PO PRN (16:15)
[2023-11-11] MEDS: SODIUM CHLORIDE FLUSH 0.9% 10 ML SYRINGE IVP PRN (20:47)
[2023-11-12 07:19] LABS: BASOPHILS % (AUTO) 0.5 %; EOSINOPHILS # (AUTO) 0.3 10^3/uL (0.0-0.7); HCT - HEMATOCRIT 29.6 % (42.0-52.0); HGB - HEMOGLOBIN 10.2 g/dL (14.0-18.0); LYMPHOCYTES # (AUTO) 1.3 10^3/uL (1.5-3.5); LYMPHOCYTES % (AUTO) 16.7 %; MEAN CORPUSCULAR HEMOGLOBIN 32.7 pg (27.0-31.0); MEAN CORPUSCULAR HGB CONC 34.5 g/dL (32.0-36.0); MEAN CORPUSCULAR VOLUME 94.9 fL (80.0-94.0); MEAN PLATELET VOLUME 9.9 fL (7.4-11.4); MONOCYTES # (AUTO) 0.4 10^3/uL (0.0-1.0); MONOCYTES % (AUTO) 5.6 %; NEUTROPHILS # (AUTO) 5.5 10^3/uL (1.5-6.6); NEUTROPHILS % (AUTO) 73.1 %; PLT - PLATELET COUNT 150 10^3/uL (130-450); RED BLOOD COUNT 3.12 10^6/uL (4.70-6.10); RED CELL DISTRIBUTION WIDTH 13.2 % (12.0-15.0); WHITE BLOOD COUNT 7.5 x10^3/uL (4.8-10.8)
[2023-11-12 07:27] LABS: CALCIUM 9.2 mg/dL (8.5-10.3); CREATININE 0.9 mg/dL (0.6-1.3); POTASSIUM 3.9 mmol/L (3.5-4.5)
--- NOTE | 2023-11-12 11:24 | PROVIDER PROGRESS NOTE ---
Assessment/Plan - Problem List (1) C. difficile colitis Assessment/Plan: (1) C. difficile colitis Assessment/Plan: --Continue PO Vancomycin 125 mg QID for 10 total days. (2) EITAN (acute kidney injury) Assessment/Plan: --Resolved. (3) Alcohol intoxication Qualifiers: Complication of substance-induced condition: uncomplicated Qualified Code(s): F10.920 - Alcohol use, unspecified with intoxication, uncomplicated Assessment/Plan: --Endorses prior withdrawal seizures. He is currently in CIWA. Have added Librium 25 mg QID. (4) Syncope Qualifiers: Syncope type: unspecified Qualified Code(s): R55 - Syncope and collapse Assessment/Plan: --No further syncopal episodes with ambulation. Likely occurred due to a combination of EtOH intoxication, infection, and dehydration. Dispo: Anticipate discharge in next 24-48 hours. (3) Alcohol intoxication Qualifiers: Complication of substance-induced condition: uncomplicated Qualified Code(s): F10.920 - Alcohol use, unspecified with intoxication, uncomplicated (4) Syncope Qualifiers: Syncope type: unspecified Qualified Code(s): R55 - Syncope and collapse - Current Meds Current Meds: Current Medications Generic Name Dose Route Start Last Admin Trade Name Freq PRN Reason Stop Dose Admin Acetaminophen 650 mg 11/10/23 21:50 11/12/23 08:00 Acetaminophen 325 Mg Tablet PO 650 mg Q6H PRN Administration Pain 1 to 4, or Fever Buspirone HCl 15 mg 11/11/23 09:00 11/12/23 08:02 Buspirone 5 Mg Tablet PO 15 mg DAILY DAPHNEY Administration Chlordiazepoxide HCl 25 mg 11/11/23 08:00 11/12/23 06:20 Chlordiazepoxide 25 Mg Capsule PO 25 mg Q6HR DAPHNEY Administration Lorazepam 1 mg 11/10/23 21:47 11/12/23 09:44 Lorazepam 2 Mg/Ml Vial IVP 1 mg Q30M PRN Administration CIWA >8 Protocol Ondansetron HCl 4 mg 11/10/23 21:50 11/10/23 23:22 Ondansetron Odt 4 Mg Tablet TL 4 mg Q6HR PRN Administration Nausea / Vomiting Pantoprazole Sodium 40 mg 11/11/23 07:00 11/12/23 06:21 Pantoprazole 40 Mg Tablet PO 40 mg QDAC DAPHNEY Administration Multivit/Folic Acid/Iron 1 tab 11/11/23 08:00 11/12/23 08:00 Vitamin Tablet PO 1 tab DAILYWM DAPHNEY Administration Saccharomyces Boulardii 500 mg 11/11/23 17:00 11/12/23 08:00 Saccharomyces Boulardii 250 Mg Capsule PO 500 mg BIDWM DAPHNEY Administration Sodium Chloride 10 ml 11/10/23 21:50 11/12/23 06:23 Sodium Chloride Flush 0.9% 10 Ml Syringe IVP 10 ml PRN PRN Administration NEEDED PER PROVIDER ORDERS Sodium Chloride 10 ml 11/11/23 01:00 11/12/23 08:02 Sodium Chloride Flush 0.9% 10 Ml Syringe IVP Not Given 0100,0900,1700 DAPHNEY Thiamine HCl 100 mg 11/11/23 09:00 11/12/23 08:00 Thiamine 100 Mg Tablet PO 100 mg DAILY DAPHNEY Administration Vancomycin HCl 125 mg 11/10/23 23:45 11/12/23 08:00 Vancomycin 125 Mg Capsule PO 125 mg QID DAPHNEY Administration - Lab Result Fish Bone Diagrams: 11/12/23 07:08 11/12/23 07:08 - Additional Planning My Orders: My Active Orders 11/11/23 17:00 Saccharomyces Boulardii [Florastor] 500 mg PO BIDWM 11/12/23 Breakfast Regular Diet [DIET] 11/12/23 11:00 Nicotine 14 mg Patch [Nicoderm] 1 patch TOP DAILY 11/13/23 05:00 BMP - BASIC METABOLIC PANEL [CHEM] DAILYLAB CBC [CBC - COMP BLD CT W/AUTO DIFF] [HEME] DAILYLAB 11/14/23 05:00 BMP - BASIC METABOLIC PANEL [CHEM] DAILYLAB CBC [CBC - COMP BLD CT W/AUTO DIFF] [HEME] DAILYLAB 11/15/23 05:00 BMP - BASIC METABOLIC PANEL [CHEM] DAILYLAB CBC [CBC - COMP BLD CT W/AUTO DIFF] [HEME] DAILYLAB 11/16/23 05:00 BMP - BASIC METABOLIC PANEL [CHEM] DAILYLAB CBC [CBC - COMP BLD CT W/AUTO DIFF] [HEME] DAILYLAB Subjective - Subjective Patient Reports: Resting Comfortably, No Complaints Objective Vital Signs: Vital Signs - 24 hr 11/11/23 11/11/23 11/11/23 13:20 16:02 20:57 Temperature 36.7 C 37.1 C 37.1 C Heart Rate [ 72 81 72 Brachial] Respiratory 18 18 18 Rate Blood Pressure 134/85 H 128/84 H 136/80 H [Left Brachial artery] O2 Saturation 100 94 95 11/12/23 11/12/23 11/12/23 01:00 06:07 08:58 Temperature 37.1 C 36.7 C 37.1 C Heart Rate [ 71 71 65 Brachial] Respiratory 14 16 16 Rate Blood Pressure 125/75 134/80 H 145/81 H [Left Brachial artery] O2 Saturation 89 L 95 95 Oxygen O2 Source Room air I&O (Last 24 Hrs): Intake and Output Totals x24h 11/10/23 11/11/23 11/12/23 23:59 23:59 23:59 Intake Total 3100 2608.334 1023.333 Output Total 400 200 Balance 3100 2208.334 823.333 General: Alert, Oriented x3, Cooperative, No acute distress Neuro: Alert, CN 2-12 Grossly Intact, Oriented Times 3 Cardiovascular: Regular rate, Normal S1, Normal S2, No murmurs Respiratory: Chest non-tender, No respiratory distress, Breath sounds nml Abdomen: Normal bowel sounds, Soft, No tenderness, No hepatospenomegaly, No masses - Results Results: Laboratory Results WBC 7.5 x10^3/uL (4.8-10.8) 11/12/23 07:08 RBC 3.12 10^6/uL (4.70-6.10) L 11/12/23 07:08 Hgb 10.2 g/dL (14.0-18.0) L 11/12/23 07:08 Hct 29.6 % (42.0-52.0) L 11/12/23 07:08 MCV 94.9 fL (80.0-94.0) H 11/12/23 07:08 MCH 32.7 pg (27.0-31.0) H 11/12/23 07:08 MCHC 34.5 g/dL (32.0-36.0) 11/12/23 07:08 RDW 13.2 % (12.0-15.0) 11/12/23 07:08 Plt Count 150 10^3/uL (130-450) 11/12/23 07:08 MPV 9.9 fL (7.4-11.4) 11/12/23 07:08 Neut # (Auto) 5.5 10^3/uL (1.5-6.6) 11/12/23 07:08 Lymph # (Auto) 1.3 10^3/uL (1.5-3.5) L 11/12/23 07:08 [place] # (Auto) 0.4 10^3/uL (0.0-1.0) 11/12/23 07:08 Eos # (Auto) 0.3 10^3/uL (0.0-0.7) 11/12/23 07:08 Baso # (Auto) 0.0 10^3/uL (0.0-0.1) 11/12/23 07:08 Absolute Nucleated RBC 0.00 x10^3/uL 11/12/23 07:08 Nucleated RBC % 0.0 /100WBC 11/12/23 07:08 Platelet Estimate NORMAL (130-450,000) (NORMAL) 11/11/23 04:53 Platelet Morphology NORMAL APPEARANCE (NORMAL) 11/11/23 04:53 PT 12.0 secs (9.9-12.6) 11/10/23 16:12 INR 1.1 (0.8-1.2) 11/10/23 16:12 APTT 23.8 secs (24.9-33.3) L 11/10/23 16:12 Sodium 137 mmol/L (135-145) 11/12/23 07:08 Potassium 3.9 mmol/L (3.5-4.5) 11/12/23 07:08 Chloride 103 mmol/L (101-111) 11/12/23 07:08 Carbon Dioxide 27 mmol/L (21-32) 11/12/23 07:08 Anion Gap 7.0 (6-13) 11/12/23 07:08 BUN 13 mg/dL (6-20) 11/12/23 07:08 Creatinine 0.9 mg/dL (0.6-1.3) 11/12/23 07:08 Estimated GFR (MDRD) 92 (>89) 11/12/23 07:08 Glucose 96 mg/dL (74-104) 11/12/23 07:08 POC Whole Bld Glucose 84 mg/dL (70 - 100) 11/11/23 07:36 Estimat Average Glucose 114 mg/dL (70-100) H 11/10/23 22:11 Hemoglobin A1c % 5.6 % (4.27-6.07) 11/10/23 22:11 Lactic Acid 1.8 mmol/L (0.5-2.2) 11/10/23 22:11 Calcium 9.2 mg/dL (8.5-10.3) 11/12/23 07:08 Magnesium 1.5 mg/dL (1.7-2.3) L 11/11/23 04:53 Total Bilirubin 0.8 mg/dL (0.2-1.0) 11/11/23 04:53 AST 41 IU/L (10-42) 11/11/23 04:53 ALT 43 IU/L (10-60) 11/11/23 04:53 Alkaline Phosphatase 52 IU/L (42-121) 11/11/23 04:53 Troponin I High Sens 10.0 ng/L (2.3-19.7) 11/10/23 16:12 Total Protein 6.3 g/dL (6.4-8.9) L 11/11/23 04:53 Albumin 4.0 g/dL (3.2-5.5) 11/11/23 04:53 Globulin 2.3 g/dL (2.1-4.2) 11/11/23 04:53 Albumin/Globulin Ratio 1.7 (1.0-2.2) 11/11/23 04:53 Triglycerides 142 mg/dL (48-352) 11/10/23 22:11 Cholesterol 187 mg/dL (-200) 11/10/23 22:11 LDL Cholesterol, Calc 98 mg/dL (-129) 11/10/23 22:11 VLDL Cholesterol 28 mg/dL 11/10/23 22:11 HDL Cholesterol 61 mg/dL (60-) 11/10/23 22:11 LDL/HDL Ratio 1.6 (<3.6) 11/10/23 22:11 Cholesterol/HDL Ratio 3.1 (<5.0) 11/10/23 22:11 Lipase 15 U/L (11-82) 11/10/23 16:12 Vitamin B12 444 pg/mL (180-914) 11/11/23 04:53 Folate 11.3 ng/mL (5.90 - >24.8) 11/11/23 04:53 Procalcitonin Immunoas 0.21 ng/mL (<0.5) 11/10/23 22:11 TSH 1.01 uIU/mL (0.34-5.60) 11/10/23 22:11 Urine Color YELLOW 11/10/23 17:50 Urine Clarity CLEAR (CLEAR) 11/10/23 17:50 Urine pH 6.5 PH (5.0-7.5) 11/10/23 17:50 Ur Specific [place] <=1.005 (1.002-1.030) 11/10/23 17:50 Urine Protein NEGATIVE mg/dL (NEGATIVE) 11/10/23 17:50 Urine Glucose (UA) NEGATIVE mg/dL (NEGATIVE) 11/10/23 17:50 Urine Ketones NEGATIVE mg/dL (NEGATIVE) 11/10/23 17:50 Urine Occult Blood NEGATIVE (NEGATIVE) 11/10/23 17:50 Urine Nitrite NEGATIVE (NEGATIVE) 11/10/23 17:50 Urine Bilirubin NEGATIVE (NEGATIVE) 11/10/23 17:50 Urine Urobilinogen 0.2 (NORMAL) E.U./dL (NORMAL) 11/10/23 17:50 Ur Leukocyte Esterase NEGATIVE (NEGATIVE) 11/10/23 17:50 Ur Microscopic Review NOT INDICATED 11/10/23 17:50 Urine Culture Comments NOT INDICATED 11/10/23 17:50 Stl C. diff Tox B Gene POSITIVE (NEGATIVE) A* 11/10/23 18:25 Salicylates < 1.5 mg/dL 11/10/23 16:12 Urine Opiates Screen NEGATIVE (NEGATIVE) 11/10/23 17:50 Ur Buprenorphine Scrn POSITIVE (NEGATIVE) H 11/10/23 17:50 Ur Oxycodone Screen NEGATIVE (NEGATIVE) 11/10/23 17:50 Urine Methadone Screen NEGATIVE (NEGATIVE) 11/10/23 17:50 Acetaminophen 0.5 ug/mL 11/10/23 16:12 Ur Barbiturates Screen NEGATIVE (NEGATIVE) 11/10/23 17:50 Ur Tricyclics Screen NEGATIVE (NEGATIVE) 11/10/23 17:50 Ur Phencyclidine Scrn NEGATIVE (NEGATIVE) 11/10/23 17:50 Ur Amphetamine Screen NEGATIVE (NEGATIVE) 11/10/23 17:50 U Methamphetamines Scrn NEGATIVE (NEGATIVE) 11/10/23 17:50 U Benzodiazepines Scrn NEGATIVE (NEGATIVE) 11/10/23 17:50 Urine Cocaine Screen NEGATIVE (NEGATIVE) 11/10/23 17:50 U Cannabinoids Screen NEGATIVE (NEGATIVE) 11/10/23 17:50 Ur Drug Screen Comment CUTOFF CONC BELOW: 11/10/23 17:50 Ethyl Alcohol 172.6 mg/dL 11/10/23 16:12
[2023-11-12] MEDS: NICOTINE 14 MG PATCH TOP SCH (11:38)
[2023-11-12] MEDS: HYDROcod/ACETAM 5/325 MG TABLET PO PRN (11:58)
[2023-11-13] MEDS: BUPRENORPHINE/NALOXONE 8-2 MG TAB SL PRN (05:37)
[2023-11-13 06:15] LABS: CALCIUM 9.4 mg/dL (8.5-10.3); CREATININE 0.9 mg/dL (0.6-1.3); POTASSIUM 4.1 mmol/L (3.5-4.5)
[2023-11-13 06:30] LABS: BASOPHILS % (AUTO) 0.7 %; EOSINOPHILS # (AUTO) 0.4 10^3/uL (0.0-0.7); EOSINOPHILS % (AUTO) 5.9 %; HCT - HEMATOCRIT 30.8 % (42.0-52.0); HGB - HEMOGLOBIN 10.3 g/dL (14.0-18.0); LYMPHOCYTES # (AUTO) 1.6 10^3/uL (1.5-3.5); LYMPHOCYTES % (AUTO) 25.7 %; MEAN CORPUSCULAR HEMOGLOBIN 31.8 pg (27.0-31.0); MEAN CORPUSCULAR HGB CONC 33.4 g/dL (32.0-36.0); MEAN CORPUSCULAR VOLUME 95.1 fL (80.0-94.0); MEAN PLATELET VOLUME 10.3 fL (7.4-11.4); MONOCYTES # (AUTO) 0.4 10^3/uL (0.0-1.0); MONOCYTES % (AUTO) 6.6 %; NEUTROPHILS # (AUTO) 3.7 10^3/uL (1.5-6.6); NEUTROPHILS % (AUTO) 61.1 %; PLT - PLATELET COUNT 179 10^3/uL (130-450); RED BLOOD COUNT 3.24 10^6/uL (4.70-6.10); RED CELL DISTRIBUTION WIDTH 13.1 % (12.0-15.0); WHITE BLOOD COUNT 6.1 x10^3/uL (4.8-10.8)
--- NOTE | 2023-11-13 07:49 | Discharge Plan ---
Discharge Plan Problem Reviewed?: Yes Disposition: Home, Self Care Condition: Stable Prescriptions: Vancomycin [Vancocin] 125 mg PO QID 7 Days #28 cap Diet: Regular Activity Restrictions: No Restrictions Plan of Treatment: Please continue to take your oral Vancomycin for 7 days for your C. diff colitis. Recommend isolation until antibiotic course is finished. Will provide you with a work note. No restrictions on your diet. Please refrain from excessive alcohol use. No Smoking: If you smoke, Please STOP! Call for help.
[2023-11-13 08:46] VITALS: BP 142/83; O2SAT 96
--- NOTE | 2023-11-13 11:25 | DISCHARGE SUMMARY ---
Discharge Summary Admit Date: 11/10/23 Discharge Date: 11/13/23 Discharging Provider: Volodymyr Flower Code Status: Attempt Resuscitation Condition at Discharge: Good Discharge Disposition: 01 Home, Self Care - HPI History of Present Illness: pt presents with syncopal episode that occurred while at work. he was placing tiles at someone's house and head to use the bathroom, and on his way, he felt dizzy and ended up waking up on the floor. he states he soiled himself (stool) twice. no chest pain but does report palpitations. he states having syncopal episode in the past but "not like this." has not been seen by a medical provider for some time. smokes 1 ppd x 20+ yr and has relapsed into drinking etoh (1/5 vodka) daily. h/o withdrawal and DTs. no fevers but feels dehydrated. - CONSULTS | PROCEDURES Consultations: General surgery - HOSPITAL COURSE Hospital Course: Patient is a 43-year-old male who presented to the ED after a syncopal episode at work. Upon presentation he tested positive for C. difficile. Patient was also noted to have a significant history of alcohol abuse with prior withdrawal seizures. Patient was admitted and started on oral vancomycin and IV metronidazole. His IV metronidazole was discontinued shortly after. He was having some episodes of bright red blood per rectum and general surgery was consulted. They felt this is likely due to his C. difficile colitis and recommended continued antibiotics. Patient had an uncomplicated withdrawal. His bleeding subsided and he was able to tolerate a diet. He was subsequently discharged on oral vancomycin to complete 10 total day course. - ALLERGIES Allergies/Adverse Reactions: Allergies Allergy/AdvReac Type Severity Reaction Status Date / Time No Known Drug Allergies Allergy Verified 11/10/23 16:01 - MEDICATIONS Home Medications: Ambulatory Orders Medication Instructions Recorded Confirmed Buprenorphine HCl/Naloxone HCl 1.5 tab PO DAILY 11/10/23 [Suboxone 8 mg-2 mg Sl Film] Buspirone HCl 15 mg PO DAILY 11/10/23 Escitalopram [Lexapro] 20 mg PO DAILY 11/12/23 Gabapentin [Neurontin] 300 mg PO TID 11/12/23 QUEtiapine [SEROquel] 50 mg PO HS 11/12/23 Risperidone [Risperdal] 1 mg PO DAILY 11/12/23 Vancomycin [Vancocin] 125 mg PO QID 7 Days #28 cap 11/13/23 - PHYSICAL EXAM AT DISCHARGE General Appearance: positive: No acute distress, Alert Respiratory: positive: Chest non-tender, No respiratory distress, Breath sounds nml Cardiovascular: positive: Regular rate & rhythm, No murmur, No gallop Neurologic/Psychiatric: positive: Oriented x3, CN's nml (2-12) - LABS Result Diagrams: 11/13/23 05:34 11/13/23 05:34 - FOLLOW UP Follow Up: Follow up with PCP in 3-5 days. - TIME SPENT Time Spent in Discharge (Minutes): 30
== END 2023-11-13 08:58 | disposition home or self-care (01) | DRG 372 ==
LOC: EDUNIT# → ED 15:50 → MS2 21:50
PROVIDERS: ADMIT Student in an Organized Health Care Education/Training Program; ATTEND Family Medicine
DX: A04.72 Enterocolitis due to Clostridium difficile, not specified as recurrent (principal); E87.20 Acidosis, unspecified; F10.139 Alcohol abuse with withdrawal, unspecified; N17.9 Acute kidney failure, unspecified; I95.9 Hypotension, unspecified; K20.90 Esophagitis, unspecified without bleeding; F17.210 Nicotine dependence, cigarettes, uncomplicated; R15.9 Full incontinence of feces; R00.2 Palpitations; E86.9 Volume depletion, unspecified; E86.0 Dehydration; F10.129 Alcohol abuse with intoxication, unspecified
CPT/HCPCS: 36415; 70450; 71045; 71250; 74174; 80048; 80053; 80061; 80143; 80179; 80306; 81003; 82077; 82607; 82746; 83036; 83605; 83690; 83735; 84145; 84443; 84484; 85025; 85610; 85730; 87040; 87493; 93005; 93307; 96361; 96365; 96375; 99285; A9270; J1170; J2060; J7120; J8499; Q0162; Q9967; 81001; 83721; 87045; 87046; 87086; 87427

== ENCOUNTER 2023-11-22 16:01 | Outpatient (CLI) | payer OTHER | END 2023-11-22 23:59 | disposition EMS.NT | LOC: EMS 16:01 | DX: E86.0 Dehydration (principal); F10.129 Alcohol abuse with intoxication, unspecified ==

== ENCOUNTER 2023-11-22 23:46 | Outpatient (CLI) | payer OTHER | END 2023-11-22 23:59 | disposition critical access hospital (66) | LOC: EMS 23:46 | DX: F10.129 Alcohol abuse with intoxication, unspecified (principal) | CPT/HCPCS: A0425; A0429 ==

== ENCOUNTER 2023-11-23 00:11 | Emergency (ER) | payer OTHER ==
--- NOTE | 2023-11-23 02:01 | ED Physician Documentation ---
History of Present Illness - Stated complaint Stated Complaint: ETOH - Chief complaint Chief Complaint: General - History obtained from History obtained from: Patient - Additonal information Additional information: BIBA. Patient tells me "I am an alcoholic and I am going through withdrawals, serious withdrawals" (per patient). He says that he drinks vodka every day, last drink was at approximately 8 PM. He says he has been drinking on a daily basis for a few years. Patient says that he had contacted [facility] and was given an intake time late last night but this had to be changed to 1 AM this morning. At that point, the patient said that he felt he could not wait until 1 AM and thus called 911 and is brought to this ED by ambulance. Patient denies AH/VH. Review of Systems Cardiac: reports: Reviewed and negative Respiratory: reports: Reviewed and negative GI: reports: Nausea. denies: Abdominal Pain, Vomiting Neurologic: denies: Generalized weakness, Seizure, Confused, Altered mental status, Headache PD PAST MEDICAL HISTORY - Past Medical History Neuro: None HEENT: None - Past Surgical History Past Surgical History: No Ortho: Other - Present Medications Home Medications: Ambulatory Orders Medication Instructions Recorded Confirmed Buprenorphine HCl/Naloxone HCl 1.5 tab PO DAILY 11/10/23 [Suboxone 8 mg-2 mg Sl Film] Buspirone HCl 15 mg PO DAILY 11/10/23 Escitalopram [Lexapro] 20 mg PO DAILY 11/12/23 Gabapentin [Neurontin] 300 mg PO TID 11/12/23 QUEtiapine [SEROquel] 50 mg PO HS 11/12/23 Risperidone [Risperdal] 1 mg PO DAILY 11/12/23 Vancomycin [Vancocin] 125 mg PO QID 7 Days #28 cap 11/13/23 - Allergies Allergies/Adverse Reactions: Allergies Allergy/AdvReac Type Severity Reaction Status Date / Time No Known Drug Allergies Allergy Verified 11/23/23 00:17 - Social History Does the pt smoke?: Yes Smoking Status: Current every day smoker Does the pt drink ETOH?: Yes Does the pt have substance abuse?: Yes - POLST Patient has POLST: No PD ED PE NORMAL - Vitals Vital signs reviewed: Yes - General General: Alert and oriented X 3, No acute distress, Well developed/nourished, Other (initially asleep when I enter the room, slowly awakens to verbal stimulus) - HEENT HEENT: Atraumatic, PERRL, EOMI, Moist mucous membranes - Neck Neck: Supple, no meningeal sign - Cardiac Cardiac: RRR, No murmur - Respiratory Respiratory: No respiratory distress, Clear bilaterally - Abdomen Abdomen: Soft, Non tender - Derm Derm: Normal color, Warm and dry - Extremities Extremities: Other (no tremulousness) - Neuro Neuro: Alert and oriented X 3 Eye Opening: To Voice Motor: Obeys Commands Verbal: Oriented GCS Score: 14 - Psych Psych: Normal mood, Normal affect Results - Vitals Vitals: Oxygen O2 Source Room air PD Medical Decision Making - ED course Complexity details: re-evaluated patient, considered differential, d/w patient ED course: At this time, emergent testing is not indicated that is unlikely to result in specific diagnosis and/or change short-term management. The patient would benefit from inpatient treatment of alcohol withdrawal. As noted in HPI, above, [facility] would be one such option. Unfortunately, by the time of this H&P, it is already 2 AM (patient had a 1 AM intake which he decided he could not wait for thus called 911, but due to the ED patient volume tonight, the patient had to wait until 2 AM for this evaluation). He is given 2 mg lorazepam p.o. I instructed him to continue to pursue inpatient treatment at [facility]. Return precautions reviewed. Departure - Departure Disposition: 01 Home, Self Care Clinical Impression: Alcohol withdrawal Qualifiers: Complication of substance-induced condition: uncomplicated Qualified Code(s): F10.930 - Alcohol use, unspecified with withdrawal, uncomplicated Condition: Good Instructions: ED Withdrawal Alcohol Comments: You were given 2 mg of lorazepam (Ativan) by mouth for alcohol withdrawal. No tests were undertaken at this time, as they are highly unlikely to contribute to diagnosis and/for change treatment. Continue to work on getting into the [facility] stabilization center. Discharge Date/Time: 11/23/23 02:58
[2023-11-23] MEDS: LORazepam 0.5 MG TABLET PO STA (02:39)
[2023-11-23 03:03] VITALS: BP 113/67; O2SAT 99
== END 2023-11-23 02:58 | disposition home or self-care (01) ==
LOC: EDUNIT# → ED 00:11
DX: F10.239 Alcohol dependence with withdrawal, unspecified (principal); F17.200 Nicotine dependence, unspecified, uncomplicated
CPT/HCPCS: 99283; A9270

== ENCOUNTER 2024-08-01 14:45 | Inpatient (IN) ==
[2024-08-01] MEDS: SODIUM CHLORIDE 0.9% 1,000 ML IV STA ×2 (15:33→19:54)
--- NOTE | 2024-08-01 15:38 | ED Physician Documentation ---
History of Present Illness Stated complaint Stated Complaint: LIGHT-HEADED, DIZZY, VOMIT, HARD TIME WALKING Chief complaint Chief Complaint: Abd Pain History obtained from History obtained from: Patient History of Present Illness Timing: Prior to arrival Additonal information Additional information: Patient 44-year-old male presenting to the emergency department with concerns for lightheadedness for the past few days. Patient had persistent coffee-ground emesis vomiting over the last 3 days. Patient notes he has been feeling fatigued and weak for multiple weeks. He has had some dark-colored stools and was seeing his PCP for signs of anemia. Patient notes he is a chronic alcoholic drinker he has not drink for multiple weeks until a few days ago he had 2 mikes hard. He is on Suboxone regularly for history of heroin use and chronic pain in bilateral legs. He has persistent upper chest pain that occurred with his nausea vomiting. Meds/Allgy Home Medications Ambulatory Orders Medication Instructions Recorded Confirmed rosuvastatin 5 mg tablet 5 mg PO QDAY 90 days #90 tabs 04/08/24 06/16/24 tadalafil 20 mg tablet (Cialis) 20 mg PO QDAY PRN sexual activity 04/08/24 06/16/24 30 days #30 tabs gabapentin 300 mg capsule 300 mg PO TID #90 caps 04/27/24 06/16/24 hydroxyzine pamoate 50 mg capsule 50 mg PO BID PRN anxiety #60 caps 05/07/24 06/16/24 escitalopram oxalate 20 mg tablet 20 mg PO QDAY #90 tabs 06/11/24 06/16/24 atomoxetine 40 mg capsule 40 mg PO QAM #30 caps 07/15/24 07/15/24 quetiapine 25 mg tablet 25 mg PO QDAY #30 tabs 07/15/24 07/15/24 ziprasidone HCl 60 mg capsule 60 mg PO BID #60 caps 07/15/24 07/15/24 buprenorphine 8 mg-naloxone 2 mg 1.5 film buccal QDAY 28 days #42 ea 07/22/24 07/22/24 sublingual film (Suboxone) Allergies Allergies Allergy/AdvReac Type Severity Reaction Status Date / Time No Known Drug Allergies Allergy Verified 08/01/24 14:52 PFSH Active Problems All Active Problems (Updated 08/01/24 @ 19:20 by Eloise B Porath, PA-C) Esophagitis (Acute) Acute epigastric pain (Acute) Esophageal obstruction due to food impaction (Acute) Vomiting (Acute) Abdominal pain (Acute) Pancreatitis (Acute) Anxiety disorder (Acute) Auditory hallucinations (Acute) Vitamin D deficient osteomalacia (Acute) Renal disease (Acute) Anemia (Acute) Elevated liver enzymes (Acute) Erectile dysfunction (Acute) Alcohol use disorder (Acute) Hyperlipemia (Acute) Long-term use of high-risk medication (Acute) Hypertension (Acute) Opioid use disorder in remission (Acute) Medical History Medical History Opioid use disorder Alcohol abuse, in remission Social History Social History (Updated 08/01/24 @ 15:08 by Kristi Pettit RN) Smoking Status: Current every day smoker Number of Years Smoked: 20 How many cigarettes a day do you smoke? (20 cigarettes=1 Pk): 10 Second hand tobacco smoke exposure: No Do you dip or chew tobacco?: No Do you vape?: Yes Patient requests smoking cessation consult: No Initiate information on smoking cessation: No Living arrangement: At home Relationship: Level: Independent Do you feel safe in your home environment?: Yes Suffered physical, verbal, emotional, or financial abuse?: No ETOH Use: None Frequency: Occasional ETOH Use Details: reports occasional but states has had several "slip ups" this month, not forthcoming on how much he drank on his slip ups. states last drink was 3 days ago. Substance Use: denies use POLST Patient has POLST: No Results Vitals Vitals: Vital Signs - 24 hr 08/01/24 14:50 08/01/24 15:04 08/01/24 15:30 Temperature 36.8 C Temperature Source Temporal Artery Scan Pulse Rate 86 75 77 Respiratory Rate 18 22 18 Blood Pressure 88/50 L 117/65 90/50 L O2 Saturation 95 92 98 O2 Source Room air Room air Room air Pain Intensity 7 8 08/01/24 15:34 08/01/24 16:04 08/01/24 16:34 Temperature Temperature Source Pulse Rate 80 70 79 Respiratory Rate 16 18 16 Blood Pressure 110/53 L 116/56 L 110/52 L O2 Saturation 97 98 97 O2 Source Room air Room air Room air Pain Intensity 8 8 08/01/24 17:28 08/01/24 17:30 08/01/24 18:00 Temperature Temperature Source Pulse Rate 66 68 Respiratory Rate 18 16 Blood Pressure 109/54 L 118/59 L O2 Saturation 94 95 O2 Source Room air Room air Pain Intensity 8 5 Oxygen O2 Source Room air Labs Labs: Laboratory Tests 08/01/24 08/01/24 08/01/24 15:11 15:38 17:32 WBC 7.3 RBC 3.12 L Hgb 9.7 L Hct 28.6 L MCV 91.7 MCH 31.1 H MCHC 33.9 RDW 12.9 Plt Count 204 MPV 9.8 Neut # (Auto) 4.0 Lymph # (Auto) 2.3 Maverick # (Auto) 0.8 Eos # (Auto) 0.2 Baso # (Auto) 0.0 Absolute Nucleated RBC 0.00 Nucleated RBC % 0.0 Sodium 133 L Potassium 4.2 Chloride 93 L Carbon Dioxide 30 Anion Gap 10.0 BUN 55 H Creatinine 2.4 H Estimated GFR (MDRD) 30 L Glucose 115 H Calcium 11.6 H Total Bilirubin 0.2 AST 15 ALT 17 Alkaline Phosphatase 44 Troponin I High Sens 5.1 Total Protein 6.1 L Albumin 4.0 Globulin 2.1 Albumin/Globulin Ratio 1.9 Lipase 110 H Urine Color YELLOW Urine Clarity CLEAR Urine pH 5.5 Ur Specific [place] 1.010 Urine Protein NEGATIVE Urine Glucose (UA) NEGATIVE Urine Ketones NEGATIVE Urine Occult Blood NEGATIVE Urine Nitrite NEGATIVE Urine Bilirubin NEGATIVE Urine Urobilinogen 0.2 (NORMAL) Ur Leukocyte Esterase NEGATIVE Ur Microscopic Review NOT INDICATED Urine Culture Comments NOT INDICATED Nasal Adenovirus (PCR) NOT DETECTED Nasal B. parapertussis DNA (PCR) NOT DETECTED Nasal Coronavir 229E PCR NOT DETECTED Nasal Coronavir HKU1 PCR NOT DETECTED Nasal Coronavir NL63 PCR NOT DETECTED Nasal Coronavir OC43 PCR NOT DETECTED Nasal Enterovir/Rhinovir PCR NOT DETECTED Nasal Influenza B PCR NOT DETECTED Nasal Influenza A PCR NOT DETECTED Nasal Parainfluen 1 PCR NOT DETECTED Nasal Parainfluen 2 PCR NOT DETECTED Nasal Parainfluen 3 PCR NOT DETECTED Nasal Parainfluen 4 PCR NOT DETECTED Nasal RSV (PCR) NOT DETECTED Nasal B.pertussis DNA PCR NOT DETECTED Nasal C.pneumoniae (PCR) NOT DETECTED Raghu Human Metapneumo PCR NOT DETECTED Nasal M.pneumoniae (PCR) NOT DETECTED Nasal SARS-CoV-2 (PCR) NOT DETECTED Blood Type O POSITIVE Blood Type Recheck O POSITIVE Antibody Screen NEGATIVE PD Medical Decision Making ED course ED course: Patient 44-year-old male presenting to the emergency department with concerns for lightheadedness for the past few days. Patient had persistent coffee-ground emesis vomiting over the last 3 days. Patient notes he has been feeling fatigued and weak for multiple weeks. He has had some dark-colored stools and was seeing his PCP for signs of anemia. Patient notes he is a chronic alcoholic drinker he has not drink for multiple weeks until a few days ago he had 2 mikes hard. He is on Suboxone regularly for history of heroin use and chronic pain in bilateral legs. He has persistent upper chest pain that occurred with his nausea vomiting. Labs show anemia at 9.7 but this is not significantly different from 4 days ago at 10.4. He has no white count but does have significant EITAN no significant elevation in BUN to creatinine level his creatinine is 2.4 baseline is closer to 1 IV fluids started here in the ED which did seem to improve his blood pressure immediately on arrival. Given his significant chest pain and epigastric pain we will obtain CT chest and abdomen however will do without contrast given significant EITAN..He was started on pantoprazole 80 IV and was given octreotide for his symptoms. CT chest: 1. Mild dependent atelectasis in posterior aspect of bilateral lung [place]. No focal infiltrate, pleural effusion or pneumothorax. 2. Cardiomegaly, no pericardial effusion. No mediastinal or hilar lymphadenopathy. 3. Small to moderate size hiatal hernia. Questionable distal esophageal wall thickening which may represent low-grade esophagitis. CT abdomen pelvis: 1. Finding is suggestive of infectious or inflammatory esophagitis and gastritis. No small bowel colon wall thickening. No bowel obstruction. No free fluid of free air. Normal appendix. Sigmoid diverticulosis without CT evidence of acute diverticulitis. 2. No obstructing renal stones or hydronephrosis. Labs are reassuring other than significant anemia given CT findings I did review notes it appears he was recently here for a esophageal stricture symptoms given findings of esophagitis and inflammation on CT scans I have concerns the patient symptoms are more secondary to esophagitis and gastritis as opposed to esophageal varices despite history of alcohol abuse. His blood pressure is improving has more signs of an EITAN as opposed to upper GI bleed and I did discuss with on-call general surgeon 's office and he is in agreement And would be willing to do EGD tomorrow and add him to the schedule. I am in agreement no need for patient to be seen tonight by surgery patient should be admitted to the hospitalist given most concerning factor at this time is significant EITAN. Patient agreeable with admission fluids are running discussed with hospitalist nurse practitioner Bryant who is agreeable with this plan at this time. Discharge Plan Discharge Patient Disposition: [facility] DC/Xfer Condition: Stable Clinical Impression: Opioid use disorder in remission, Vomiting, Acute epigastric pain, Esophagitis
[2024-08-01 15:48] LABS: BASOPHILS % (AUTO) 0.5 %; EOSINOPHILS # (AUTO) 0.2 10^3/uL (0.0-0.7); EOSINOPHILS % (AUTO) 2.6 %; HCT - HEMATOCRIT 28.6 % (42.0-52.0); HGB - HEMOGLOBIN 9.7 g/dL (14.0-18.0); LYMPHOCYTES # (AUTO) 2.3 10^3/uL (1.5-3.5); LYMPHOCYTES % (AUTO) 31.4 %; MEAN CORPUSCULAR HEMOGLOBIN 31.1 pg (27.0-31.0); MEAN CORPUSCULAR HGB CONC 33.9 g/dL (32.0-36.0); MEAN CORPUSCULAR VOLUME 91.7 fL (80.0-94.0); MEAN PLATELET VOLUME 9.8 fL (7.4-11.4); MONOCYTES # (AUTO) 0.8 10^3/uL (0.0-1.0); MONOCYTES % (AUTO) 10.8 %; NEUTROPHILS % (AUTO) 54.4 %; PLT - PLATELET COUNT 204 10^3/uL (130-450); RED BLOOD COUNT 3.12 10^6/uL (4.70-6.10); RED CELL DISTRIBUTION WIDTH 12.9 % (12.0-15.0); WHITE BLOOD COUNT 7.3 x10^3/uL (4.8-10.8)
[2024-08-01 15:59] LABS: ALBUMIN/GLOBULIN RATIO 1.9 (1.0-2.2); BILIRUBIN,TOTAL 0.2 mg/dL (0.2-1.0); CALCIUM 11.6 mg/dL (8.5-10.3); CREATININE 2.4 mg/dL (0.6-1.3); POTASSIUM 4.2 mmol/L (3.5-4.5); TOTAL PROTEIN 6.1 g/dL (6.4-8.9)
[2024-08-01] MEDS: PANTOPRAZOLE 40 MG VIAL IV STA (16:01)
--- NOTE | 2024-08-01 16:01 | XRAY Report ---
PROCEDURE: XR Chest 1V INDICATIONS: chest pain TECHNIQUE: One view of the chest was acquired. COMPARISON: 06/20/2024. FINDINGS: Surgical changes and devices: None. Lungs and pleura: No pleural effusions or pneumothorax. No consolidation. Mediastinum: Mediastinal contours appear normal. Heart size is normal. Bones and chest wall: No suspicious bony lesions. Overlying soft tissues appear unremarkable. IMPRESSION: No acute cardiopulmonary process. Reviewed by: Manuel Walters MD on 08/01/2024 3:59 PM PDT Approved by: Manuel Walters MD on 08/01/2024 3:59 PM PDT Station ID: [id number]
[2024-08-01] MEDS: OCTREOTIDE 500 MCG in SODIUM CHLORIDE 0.9% 100ML 95 ML IV STA (16:39)
[2024-08-01] MEDS: cefTRIAXone 1 GM VIAL IVP STA (16:39)
[2024-08-01] MEDS: MORPHINE 10 MG/ML VIAL IVP STA ×2 (17:28→19:54)
[2024-08-01 17:42] LABS: BILIRUBIN,URINE NEGATIVE (NEGATIVE); GLUCOSE, URINE (UA) NEGATIVE (NEGATIVE); KETONES,URINE (UA) NEGATIVE (NEGATIVE); LEUKOCYTE ESTERASE, URINE NEGATIVE (NEGATIVE); NITRITE,URINE NEGATIVE (NEGATIVE); OCCULT BLOOD,URINE NEGATIVE (NEGATIVE); PH,URINE 5.5 PH (5.0-7.5); PROTEIN,URINE NEGATIVE (NEGATIVE); UROBILINOGEN,URINE 0.2 (NORMAL) E.U./dL (NORMAL)
[2024-08-01 17:47] LABS: CLARITY,URINE CLEAR (CLEAR)
--- NOTE | 2024-08-01 18:25 | CT Report ---
PROCEDURE: CT Chest WO INDICATIONS: chest pain after recurrent nausea and vomiting TECHNIQUE: A CT scan of the chest was performed. Intravenous contrast media was not administered. Images were re corded and evaluated at appropriate window settings. Reformats: axial MIP of the chest, coronal and s agittal. For radiation dose reduction, the following was used: automated exposure control, adjustment of mA and/or kV according to patient size. COMPARISON: None. FINDINGS: Image quality: Diagnostic. Chest wall and lower neck: No thyroid nodule which requires sonographic follow up. No axillary or sup raclavicular adenopathy by size. Lungs and pleura: Dependent atelectasis in posterior aspect of bilateral lung [place] are seen. No con solidation. No pleural effusions. No pneumothorax. No suspicious pulmonary nodules which require fol low up. Mediastinum: Heart size is enlarged. No pericardial effusion. No large vessel abnormality. No mediast inal adenopathy by size criteria. There is questionable distal esophageal wall thickening. Small to moderate size hiatal hernia. Bones: No aggressive osseous abnormality. Upper Abdomen: Unremarkable. IMPRESSION: 1. Mild dependent atelectasis in posterior aspect of bilateral lung [place]. No focal infiltrate, pleu ral effusion or pneumothorax. 2. Cardiomegaly, no pericardial effusion. No mediastinal or hilar lymphadenopathy. 3. Small to moderate size hiatal hernia. Questionable distal esophageal wall thickening which may rep resent low-grade esophagitis. Reviewed by: Manuel Finn MD on 08/01/2024 6:23 PM PDT Approved by: Manuel Finn MD on 08/01/2024 6:23 PM PDT Station ID: [id number]
--- NOTE | 2024-08-01 18:27 | CT Report ---
PROCEDURE: CT Abdomen/Pelvis WO INDICATIONS: epigastric pain TECHNIQUE: A CT scan of the abdomen and pelvis was performed without the use of intravenous contrast. Images we re recorded and evaluated at appropriate window settings. Reformats: coronal and sagittal. For radiat ion dose reduction, the following was used: automated exposure control, adjustment of mA and/or kV ac cording to patient size. COMPARISON: CT angiogram of abdomen and pelvis dated 11/10/2023. FINDINGS: Image quality: Diagnostic. Lower chest: Bibasilar dependent atelectasis are seen. Cardiomegaly, no pericardial effusion. Small t o moderate size hiatal hernia. Liver: No contour-deforming mass. Moderate hepatic steatosis is seen. Gallbladder: No radiopaque stones or wall thickening. Biliary tree: No intrahepatic or extrahepatic dilation, accounting for age. Spleen: No splenomegaly. Pancreas: No pancreatic ductal dilation. Adrenals: No adrenal nodule. Kidneys and ureters: No hydronephrosis. No contour-deforming mass. Stomach, bowel and peritoneum: There is distal esophageal wall thickening and gastric wall thickening . No gross small bowel or colon wall thickening. No abscess collection. No free fluid of free air. Ap pendix is visualized and is within normal limits. Mild sigmoid diverticulosis without CT evidence of acute diverticulitis. Lymph nodes: No central or retroperitoneal adenopathy. Vessels: No infrarenal aortic aneurysm. Reproductive organs: Unremarkable. Bladder: Bladder wall thickness is normal, accounting for underdistention. No calcified bladder stone s. Pelvic lymph nodes: No adenopathy by size criteria. Bones: No aggressive osseous abnormality. Other: No significant ventral or inguinal hernia. IMPRESSION: 1. Finding is suggestive of infectious or inflammatory esophagitis and gastritis. No small bowel colo n wall thickening. No bowel obstruction. No free fluid of free air. Normal appendix. Sigmoid divertic ulosis without CT evidence of acute diverticulitis. 2. No obstructing renal stones or hydronephrosis. Reviewed by: Manuel Walters MD on 08/01/2024 6:25 PM PDT Approved by: Manuel Walters MD on 08/01/2024 6:25 PM PDT Station ID: [id number]
[2024-08-01 18:31] LABS: B. PARAPERTUSSIS- RESP PCR PAN NOT DETECTED; B. PERTUSSIS- RESP PCR PANEL NOT DETECTED; C. PNEUMONIAE- RESP PCR PANEL NOT DETECTED; CORONAVIRUS 229E-RESP PCR NOT DETECTED; CORONAVIRUS HKU1-RESP PCR NOT DETECTED; CORONAVIRUS NL63-RESP PCR NOT DETECTED; CORONAVIRUS OC43-RESP PCR NOT DETECTED; HUMAN METAPNEUMOVIRUS NOT DETECTED; INFLUENZA A- RESP PCR PANEL NOT DETECTED; INFLUENZA B - RESP PCR PANEL NOT DETECTED; M. PNEUMONIAE- RESP PCR PANEL NOT DETECTED; PARAINFLUENZA VIRUS 1 NOT DETECTED; PARAINFLUENZA VIRUS 2 NOT DETECTED; PARAINFLUENZA VIRUS 4 NOT DETECTED; RHINOVIRUS/ENTEROVIRUS NOT DETECTED; RSV- RESP PCR PANEL NOT DETECTED; SARS-CoV-2 -RESP PCR PANEL NOT DETECTED
[2024-08-01] MEDS: MAG HYDROX/AL HYDROX/SIMETH 30 ML UDC PO STA (19:54)
--- NOTE | 2024-08-01 20:28 | HISTORY & PHYSICAL EXAMINATION ---
Chief Complaint Chief Complaint Chief Complaint: Hematemesis History of Present Illness Admitted From Admitted From:: Home History Obtained From History obtained from: Patient interview History of Present Illness HPI Comment/Other: 44-year-old male PMH significant for polysubstance abuse who has been compliant with his Suboxone regimen states that he has had flulike symptoms for the past few days. He says he has hardly left his room. He says he has been lightheaded. He reports coffee-ground emesis for the last 3 days with melena. He reports history of chronic alcohol use, with last drink a few days ago. He reports a persistent epigastric pain with his nausea and vomiting that is worse with eating. In the ER, he was noted to have hemoglobin of 9.7, down from his normal at 10 or 11. Chemistry panel showed an acute kidney injury with a creatinine of 2.4. CT abdomen/pelvis was performed which showed infectious versus inflammatory esophagitis and gastritis. General surgery was contacted by ER provider, and recommendation was for him to be held overnight and undergo EGD in the morning. Hospitalist was contacted for observation Meds/Allgy Home Medications Ambulatory Orders Medication Instructions Recorded Confirmed rosuvastatin 5 mg tablet 5 mg PO QDAY 90 days #90 tabs 04/08/24 06/16/24 tadalafil 20 mg tablet (Cialis) 20 mg PO QDAY PRN sexual activity 04/08/24 06/16/24 30 days #30 tabs gabapentin 300 mg capsule 300 mg PO TID #90 caps 04/27/24 06/16/24 hydroxyzine pamoate 50 mg capsule 50 mg PO BID PRN anxiety #60 caps 05/07/24 06/16/24 escitalopram oxalate 20 mg tablet 20 mg PO QDAY #90 tabs 06/11/24 06/16/24 atomoxetine 40 mg capsule 40 mg PO QAM #30 caps 07/15/24 07/15/24 quetiapine 25 mg tablet 25 mg PO QDAY #30 tabs 07/15/24 07/15/24 ziprasidone HCl 60 mg capsule 60 mg PO BID #60 caps 07/15/24 07/15/24 buprenorphine 8 mg-naloxone 2 mg 1.5 film buccal QDAY 28 days #42 ea 07/22/24 07/22/24 sublingual film (Suboxone) Allergies Allergies Allergy/AdvReac Type Severity Reaction Status Date / Time No Known Drug Allergies Allergy Verified 08/01/24 14:52 PFSH Active Problems All Active Problems (Updated 08/01/24 @ 19:20 by Eloise Agarwal PA-C) Esophagitis (Acute) Acute epigastric pain (Acute) Esophageal obstruction due to food impaction (Acute) Vomiting (Acute) Abdominal pain (Acute) Pancreatitis (Acute) Anxiety disorder (Acute) Auditory hallucinations (Acute) Vitamin D deficient osteomalacia (Acute) Renal disease (Acute) Anemia (Acute) Elevated liver enzymes (Acute) Erectile dysfunction (Acute) Alcohol use disorder (Acute) Hyperlipemia (Acute) Long-term use of high-risk medication (Acute) Hypertension (Acute) Opioid use disorder in remission (Acute) Medical History Medical History Opioid use disorder Alcohol abuse, in remission Social History Social History (Updated 08/01/24 @ 15:08 by Kristi Pettit RN) Smoking Status: Current every day smoker Number of Years Smoked: 20 How many cigarettes a day do you smoke? (20 cigarettes=1 Pk): 10 Second hand tobacco smoke exposure: No Do you dip or chew tobacco?: No Do you vape?: Yes Patient requests smoking cessation consult: No Initiate information on smoking cessation: No Living arrangement: At home Relationship: Level: Independent Do you feel safe in your home environment?: Yes Suffered physical, verbal, emotional, or financial abuse?: No ETOH Use: None Frequency: Occasional ETOH Use Details: reports occasional but states has had several "slip ups" this month, not forthcoming on how much he drank on his slip ups. [facility] last drink was 3 days ago. Substance Use: denies use POLST Patient has POLST: No Review of Systems Status of ROS: 10 or more systems reviewed and unremarkable except as noted in history and below Constitutional Reports: Chills Cardiovascular Reports: chest pain (Epigastric); Denies: Irregular heart rate, edema or shortness of breath with exertion Respiratory Denies: Shortness of breath or Cough Gastrointestinal Reports: Abdominal pain, Nausea, Vomiting, Coffee grounds in vomit and Melena Exam Constitutional normal general appearance and no apparent distress HENMT normocephalic and head/scalp atraumatic Eyes PERRL Dry eyes with crusted tears Neck/C-Spine visual inspection normal Lymph no lymphadenopathy noted Chest inspection of chest normal and palpation of chest normal Respiratory breath sounds equal bilaterally and normal respiratory effort Cardiovascular normal heart rate noted Gastrointestinal abdomen normal to inspection Extremities normal to inspection Neurology GCS 15 Psychiatry oriented x3 Skin skin color normal Conclusion/Plan Problem List (1) Esophagitis: Plan: His esophagitis is severe enough that is causing an upper GI bleed General Surgery contacted by ER provider Protonix 40 mg IV twice daily Maalox x 1 Trend hemoglobin every 8 Plan for EGD in a.m. (2) Opioid use disorder in remission: Plan: He is on Suboxone at home. He reports he did not take today's dose as his pain is getting worse and he was afraid that it would counteract any pain medicine we would give him He has reason for acute pain, And has received multiple doses of IV morphine in the ER. I am ordering him a 2 mg morphine push every 4 hour for severe pain (3) Alcohol use disorder: Plan: Reports last drink was 2 days ago, and it was only 2 mikes hard lemonade's If he exhibits any symptoms of alcohol withdrawal, will start CIWA protocol He received 2 L IVF in the ER I am ordering thiamine IV push 200 mg, we will further address nutrition after EGD (4) EITAN (acute kidney injury): Plan: Secondary to dehydration versus blood loss anemia Received 2 L IVF in the ER BMP in a.m. Plan Placed in observation Full code His parents are surrogate decision maker Lab Results Lab results reviewed: Yes 08/01/24 15:11 08/01/24 15:11 Diagnostic Imaging Results Diagnostic Imaging Results: positive Final report reviewed Diagnostic Imaging Results Comments: CT chest, abdomen, pelvis Core Measures Anticipated LOS I expect patient to be DC'd or transferred within 96 hours.: Yes DVT/VTE - Prophylaxis VTE/DVT Device ordered at admit?: Yes
[2024-08-01] MEDS ORDERED: CARBOXYMETHYLCELLULOSE OPHTH DROPS EACHEYE PRN (20:29)
[2024-08-01 21:48] LABS: HCT - HEMATOCRIT 24.4 % (42.0-52.0); HGB - HEMOGLOBIN 8.6 g/dL (14.0-18.0)
[2024-08-01] MEDS: MORPHINE 2 MG/ML CARPUJECT IVP PRN (21:59)
[2024-08-01] MEDS: PANTOPRAZOLE 40 MG VIAL IVP SCH (21:59)
[2024-08-01] MEDS: QUEtiapine 25 MG TABLET PO SCH (21:59)
[2024-08-01] MEDS: MORPHINE 2 MG/ML CARPUJECT IVP STA (22:24)
[2024-08-02] MEDS: traMADol 50 MG TABLET PO PRN (00:26)
[2024-08-02] MEDS: SODIUM CHLORIDE FLUSH 0.9% 10 ML SYRINGE IVP SCH (00:27)
[2024-08-02] MEDS: SODIUM CHLORIDE FLUSH 0.9% 10 ML SYRINGE IVP PRN (02:23)
[2024-08-02] MEDS: ACETAMINOPHEN 325 MG TABLET PO PRN (02:28)
[2024-08-02] MEDS: ONDANSETRON ODT 4 MG TABLET TL PRN (02:29)
[2024-08-02 08:49] LABS: BASOPHILS % (AUTO) 0.5 %; EOSINOPHILS # (AUTO) 0.2 10^3/uL (0.0-0.7); EOSINOPHILS % (AUTO) 2.7 %; HCT - HEMATOCRIT 25.7 % (42.0-52.0); HGB - HEMOGLOBIN 8.5 g/dL (14.0-18.0); LYMPHOCYTES % (AUTO) 18.3 %; MEAN CORPUSCULAR HEMOGLOBIN 30.8 pg (27.0-31.0); MEAN CORPUSCULAR HGB CONC 33.1 g/dL (32.0-36.0); MEAN CORPUSCULAR VOLUME 93.1 fL (80.0-94.0); MEAN PLATELET VOLUME 9.3 fL (7.4-11.4); MONOCYTES # (AUTO) 0.7 10^3/uL (0.0-1.0); MONOCYTES % (AUTO) 13.3 %; NEUTROPHILS # (AUTO) 3.6 10^3/uL (1.5-6.6); PLT - PLATELET COUNT 152 10^3/uL (130-450); RED BLOOD COUNT 2.76 10^6/uL (4.70-6.10); RED CELL DISTRIBUTION WIDTH 12.9 % (12.0-15.0); WHITE BLOOD COUNT 5.6 x10^3/uL (4.8-10.8)
[2024-08-02 09:00] LABS: CREATININE 1.5 mg/dL (0.6-1.3); POTASSIUM 4.5 mmol/L (3.5-4.5)
--- NOTE | 2024-08-02 09:17 | PROVIDER PROGRESS NOTE ---
<Statement entered by Bryant Acevedo DNP - 08/02/24 18:23> Patient was seen and examined by me with a separate encounter after being seen by ANNE student. I reviewed the student's documentation including patient history, physical examination, laboratory, imaging, clinical assessment and treatment plan. I have discussed the management of the patient with the student, and with the patient. There are no changes. Added CIWA protocol with as needed IV Ativan. After discussion with general surgery, plan was changed to trial of oral nystatin. Continue to trend hemoglobin Subjective Prog Note Date Prog Note Date: 08/02/24 Prog Note Time: 08:50 Subjective Pt reports feeling: No change Subjective: Solomon is a 44-year-old male with a PMH of substance use disorder in remission, alcohol use disorder, anemia, renal disease, and hypertension. He presented to the ER with coffee-ground emesis and melena for the last 3 days. He says since yesterday he has experienced chest/upper abdomen pain that is 8/10 accompanied by pain and difficulty swallowing. He is unsure of his last bowel movement but reports no urinary symptoms or back pain. He is scheduled to get an EGD today to assess the extent of his infectious or inflammatory esophagitis and gastritis seen on CT. ROS includes diaphoresis, headache, and dehydration. He denies radiating chest pain, palpitations, SOB, vision changes, weakness, or dizziness. Current Medications Current Medications Current Medications: Current Medications Generic Name Dose Route Start Last Admin Trade Name Freq PRN Reason Stop Dose Admin Acetaminophen 650 mg 08/01/24 20:07 08/02/24 07:38 Acetaminophen 325 Mg Tablet PO 650 mg Q4HR PRN Administration Pain 1 to 4, or Fever Carboxymethylcellulose 1 drops 08/01/24 20:29 Carboxymethylcellulose Ophth Drops EACHEYE Q4HR PRN Dry Eye Morphine Sulfate 2 mg 08/01/24 20:27 08/02/24 07:30 Morphine 2 Mg/Ml Carpuject IVP 2 mg Q4H PRN Administration Severe Pain (Level 7-10) Ondansetron HCl 4 mg 08/01/24 20:07 08/02/24 02:29 Ondansetron Odt 4 Mg Tablet TL 4 mg Q6HR PRN Administration Nausea / Vomiting Ondansetron HCl 4 mg 08/01/24 20:07 Ondansetron 4 Mg/2 Ml Vial IVP Q6HR PRN Nausea / Vomiting Pantoprazole Sodium 40 mg 08/01/24 21:00 08/01/24 21:59 Pantoprazole 40 Mg Vial IVP 40 mg BID DAPHNEY Administration Prochlorperazine Edisylate 10 mg 08/01/24 20:07 Prochlorperazine 10 Mg/2 Ml Vial IVP Q6HR PRN Nausea / Vomiting Quetiapine Fumarate 25 mg 08/01/24 21:00 08/01/24 21:59 Quetiapine 25 Mg Tablet PO 25 mg QPM DAPHNEY Administration Sodium Chloride 10 ml 08/01/24 20:07 08/02/24 02:23 Sodium Chloride Flush 0.9% 10 Ml Syringe IVP 10 ml PRN PRN Administration NEEDED PER PROVIDER ORDERS Sodium Chloride 10 ml 08/02/24 01:00 08/02/24 00:27 Sodium Chloride Flush 0.9% 10 Ml Syringe IVP 10 ml 0100,0900,1700 DAPHNEY Administration Tramadol HCl 50 mg 08/01/24 20:27 08/02/24 05:43 Tramadol 50 Mg Tablet PO 50 mg Q4HR PRN Administration Moderate Pain (Level 4-6) Objective Vital Signs/Intake & Output Reviewed Vital Signs: Yes Vital Signs: Vital Signs x48h Temp Pulse Resp BP Pulse Ox 08/02/24 07:31 37.6 C 77 20 130/60 92 08/02/24 05:25 36.6 C 75 16 113/50 L 94 08/02/24 02:15 36.8 C 73 16 120/58 L 93 Intake & Output: Intake & Output 07/30/24 07/31/24 08/01/24 08/02/24 23:59 23:59 23:59 23:59 Intake Total 1999 / 1999 100 / 100 Output Total 300 / 300 1100 / 1100 Balance 1700 / 1700 -1000 / -1000 Weight (kg) 87 kg Objective General Appearance: positive No acute distress and Alert Eyes Bilateral: positive Normal inspection, PERRL, EOMI and Other (Dry eyes. ) ENT: positive Dry mucous membranes and Other (Black coating on base of tongue. ) Neck: positive Nml inspection Respiratory: positive Chest non-tender, No respiratory distress and Breath sounds nml Cardiovascular: positive Regular rate & rhythm, No murmur and No gallop Abdomen: positive Nml bowel sounds, Tenderness and Other (Severe tenderness to light touch of RUQ. Mild epigastric tenderness to normal palpation. Other quadrants unremarkable. ) Back: positive Nml inspection (No CVA tenderness. ) Skin: positive Color nml and Warm Extremities: positive Non-tender, Full ROM, Nml appearance and No pedal edema Neurologic/Psychiatric: positive Oriented x3, CN's nml (2-12) and Motor nml Lab Results 08/02/24 12:23 08/02/24 08:40 Other Labs: Lab Results x24hrs 08/02/24 08/01/24 08/01/24 Range/Units 02:24 21:32 17:32 WBC (4.8-10.8) x10^3/uL RBC (4.70-6.10) 10^6/uL Hgb 8.6 L (14.0-18.0) g/dL Hct 24.4 L (42.0-52.0) % MCV (80.0-94.0) fL MCH (27.0-31.0) pg MCHC (32.0-36.0) g/dL RDW (12.0-15.0) % Plt Count (130-450) 10^3/uL MPV (7.4-11.4) fL Neut # (Auto) (1.5-6.6) 10^3/uL Lymph # (Auto) (1.5-3.5) 10^3/uL [place] # (Auto) (0.0-1.0) 10^3/uL Eos # (Auto) (0.0-0.7) 10^3/uL Baso # (Auto) (0.0-0.1) 10^3/uL Absolute Nucleated RBC x10^3/uL Nucleated RBC % /100WBC Sodium (135-145) mmol/L Potassium (3.5-4.5) mmol/L Chloride (101-111) mmol/L Carbon Dioxide (21-32) mmol/L Anion Gap (6-13) BUN (6-20) mg/dL Creatinine (0.6-1.3) mg/dL Estimated GFR (MDRD) (>89) Glucose (74-104) mg/dL POC Whole Bld Glucose 100 (70-100) mg/dL Lactic Acid 0.7 (0.5-2.2) mmol/L Calcium (8.5-10.3) mg/dL Total Bilirubin (0.2-1.0) mg/dL AST (10-42) IU/L ALT (10-60) IU/L Alkaline Phosphatase (42-121) IU/L Troponin I High Sens (2.3-19.7) ng/L Total Protein (6.4-8.9) g/dL Albumin (3.2-5.5) g/dL Globulin (2.1-4.2) g/dL Albumin/Globulin Ratio (1.0-2.2) Lipase (11-82) U/L Urine Color YELLOW Urine Clarity CLEAR (CLEAR) Urine pH 5.5 (5.0-7.5) PH Ur Specific [place] 1.010 (1.002-1.030) Urine Protein NEGATIVE (NEGATIVE) mg/dL Urine Glucose (UA) NEGATIVE (NEGATIVE) mg/dL Urine Ketones NEGATIVE (NEGATIVE) mg/dL Urine Occult Blood NEGATIVE (NEGATIVE) Urine Nitrite NEGATIVE (NEGATIVE) Urine Bilirubin NEGATIVE (NEGATIVE) Urine Urobilinogen 0.2 (NORMAL) (NORMAL) E.U./dL Ur Leukocyte Esterase NEGATIVE (NEGATIVE) Ur Microscopic Review NOT INDICATED Urine Culture Comments NOT INDICATED Nasal Adenovirus (PCR) NOT DETECTED Nasal B. parapertussis DNA (PCR) NOT DETECTED Nasal Coronavir 229E PCR NOT DETECTED Nasal Coronavir HKU1 PCR NOT DETECTED Nasal Coronavir NL63 PCR NOT DETECTED Nasal Coronavir OC43 PCR NOT DETECTED Nasal Enterovir/Rhinovir PCR NOT DETECTED Nasal Influenza B PCR NOT DETECTED Nasal Influenza A PCR NOT DETECTED Nasal Parainfluen 1 PCR NOT DETECTED Nasal Parainfluen 2 PCR NOT DETECTED Nasal Parainfluen 3 PCR NOT DETECTED Nasal Parainfluen 4 PCR NOT DETECTED Nasal RSV (PCR) NOT DETECTED Nasal B.pertussis DNA PCR NOT DETECTED Nasal C.pneumoniae (PCR) NOT DETECTED Raghu Human Metapneumo PCR NOT DETECTED Nasal M.pneumoniae (PCR) NOT DETECTED Nasal SARS-CoV-2 (PCR) NOT DETECTED Blood Type Blood Type Recheck Antibody Screen 08/01/24 08/01/24 Range/Units 15:38 15:11 WBC 7.3 (4.8-10.8) x10^3/uL RBC 3.12 L (4.70-6.10) 10^6/uL Hgb 9.7 L (14.0-18.0) g/dL Hct 28.6 L (42.0-52.0) % MCV 91.7 (80.0-94.0) fL MCH 31.1 H (27.0-31.0) pg MCHC 33.9 (32.0-36.0) g/dL RDW 12.9 (12.0-15.0) % Plt Count 204 (130-450) 10^3/uL MPV 9.8 (7.4-11.4) fL Neut # (Auto) 4.0 (1.5-6.6) 10^3/uL Lymph # (Auto) 2.3 (1.5-3.5) 10^3/uL [place] # (Auto) 0.8 (0.0-1.0) 10^3/uL Eos # (Auto) 0.2 (0.0-0.7) 10^3/uL Baso # (Auto) 0.0 (0.0-0.1) 10^3/uL Absolute Nucleated RBC 0.00 x10^3/uL Nucleated RBC % 0.0 /100WBC Sodium 133 L (135-145) mmol/L Potassium 4.2 (3.5-4.5) mmol/L Chloride 93 L (101-111) mmol/L Carbon Dioxide 30 (21-32) mmol/L Anion Gap 10.0 (6-13) BUN 55 H (6-20) mg/dL Creatinine 2.4 H (0.6-1.3) mg/dL Estimated GFR (MDRD) 30 L (>89) Glucose 115 H (74-104) mg/dL POC Whole Bld Glucose (70-100) mg/dL Lactic Acid (0.5-2.2) mmol/L Calcium 11.6 H (8.5-10.3) mg/dL Total Bilirubin 0.2 (0.2-1.0) mg/dL AST 15 (10-42) IU/L ALT 17 (10-60) IU/L Alkaline Phosphatase 44 (42-121) IU/L Troponin I High Sens 5.1 (2.3-19.7) ng/L Total Protein 6.1 L (6.4-8.9) g/dL Albumin 4.0 (3.2-5.5) g/dL Globulin 2.1 (2.1-4.2) g/dL Albumin/Globulin Ratio 1.9 (1.0-2.2) Lipase 110 H (11-82) U/L Urine Color Urine Clarity (CLEAR) Urine pH (5.0-7.5) PH Ur Specific [place] (1.002-1.030) Urine Protein (NEGATIVE) mg/dL Urine Glucose (UA) (NEGATIVE) mg/dL Urine Ketones (NEGATIVE) mg/dL Urine Occult Blood (NEGATIVE) Urine Nitrite (NEGATIVE) Urine Bilirubin (NEGATIVE) Urine Urobilinogen (NORMAL) E.U./dL Ur Leukocyte Esterase (NEGATIVE) Ur Microscopic Review Urine Culture Comments Nasal Adenovirus (PCR) Nasal B. parapertussis DNA (PCR) Nasal Coronavir 229E PCR Nasal Coronavir HKU1 PCR Nasal Coronavir NL63 PCR Nasal Coronavir OC43 PCR Nasal Enterovir/Rhinovir PCR Nasal Influenza B PCR Nasal Influenza A PCR Nasal Parainfluen 1 PCR Nasal Parainfluen 2 PCR Nasal Parainfluen 3 PCR Nasal Parainfluen 4 PCR Nasal RSV (PCR) Nasal B.pertussis DNA PCR Nasal C.pneumoniae (PCR) Raghu Human Metapneumo PCR Nasal M.pneumoniae (PCR) Nasal SARS-CoV-2 (PCR) Blood Type O POSITIVE Blood Type Recheck O POSITIVE Antibody Screen NEGATIVE ABX Reporting Has patient been on IV antibiotics over the past 48 hours?: No Assessment/Plan Problem List (1) Esophagitis: Impression: His epigastric pain is still severe but he reports no further emesis or melena at this time. Oral thrush was noted on exam and nystatin was ordered. Discussed next steps with general surgery and decided to observe him for any improvement of symptoms and reassess for EGD tomorrow. Requested speech therapy to assess him since he has a hx of food getting stuck in his throat, is complaining of discomfort with swallowing, and smokes cigarettes. Abdominal CT showed: small to moderate hiatal hernia, moderate hepatic steatosis, distal esophageal wall thickening, gastric wall thickening, and sigmoid diverticulosis w/o evidence of diverticulitis. Elevated lipase - 110. Low magnesium - 1.3 Normal calcium - 9.0, prev. 11.6 Low Hemoglobin - 9.0, prev. 8.5 Plan * Initiate Nystatin 5L PO QID * Hold on EGD * Requested speech therapy consult * Replenished magnesium * Continue NPO * Continue Protonix 40 mg IV twice daily * Continue Maalox x 1 * Continue to trend hemoglobin 08/01: His esophagitis is severe enough that is causing an upper GI bleed General Surgery contacted by ER provider Protonix 40 mg IV twice daily Maalox x 1 Trend hemoglobin every 8 Plan for EGD in a.m. (2) Opioid use disorder in remission: Impression: He continues to have reason for acute pain, so medication is being provided as needed. * Acetaminophen 650 mg PO Q4HR PRN * Morphine Sulfate 2 mg IVP Q4HR PRN * Tramadol Hcl 50 mg PO Q4HR PRN 08/01: He is on Suboxone at home. He reports he did not take today's dose as his pain is getting worse and he was afraid that it would counteract any pain medicine we would give him He has reason for acute pain, And has received multiple doses of IV morphine in the ER. I am ordering him a 2 mg morphine push every 4 hour for severe pain (3) Alcohol use disorder: Impression: He is displaying some signs of withdrawal so we will initiate CIWA protocol. * Start Librium 5 mg PO Q6HR * Start Banana Bag * Start Trinatal 1 tab PO daily * Ordered Ativan 1 mg PO Q1H PRN * Ordered Ativan 0.5 mg IVP Q2H PRN * Normal saline IVP 10 mL PRN 08/01: Reports last drink was 2 days ago, and it was only 2 mikes hard lemonade's If he exhibits any symptoms of alcohol withdrawal, will start CIWA protocol He received 2 L IVF in the ER I am ordering thiamine IV push 200 mg, we will further address nutrition after EGD (4) EITAN (acute kidney injury): Impression: He is still exhibiting signs of dehydration on exam but BMP shows mild improvement to BUN, creatinine, and eGFR. CBC continues to show low hemoglobin. Potassium and sodium have normalized. * BUN 39, prev. 55 * Cr 1.5, prev. 2.4 * eGFR 51, prev. 30 * Normal Saline 10 mL IVP PRN 08/01: Secondary to dehydration versus blood loss anemia Received 2 L IVF in the ER BMP in a.m
[2024-08-02] MEDS: MAGNESIUM SULFATE 2 GRAM 2 GM/50 ML BAG IV ONE (10:51)
--- NOTE | 2024-08-02 13:54 | CONSULTATION NOTE ---
Referring Provider Name of Referring Provider:: Eloise Agarwal PA-C Consult Date: 08/01/24 Chief Complaint Chief Complaint Chief Complaint: Painful swallowing History of Present Illness History Obtained From Records Reviewed: Yes History obtained from: Patient and chart. Exam Limitations: Patient's poor memory as well as reluctance to discuss his past medical and History of Present Illness HPI Comment/Other: This 44-year-old male was evaluated in room 7 at [facility]'s Med[facility] unit. I was asked to consult on this patient ostensibly for consideration of an esophagogastroduodenoscopy by Eloise Agarwal PA-C. The patient had a history of steak being stuck in his esophagus which resolved with nonoperative and/or nonendoscopic methods recently. In addition, the patient states that his symptoms have been progressively worsening. He is having some nausea and vomiting. Importantly the patient is a known alcoholic with blood alcohol levels of 284 back in August 2021, blood alcohol levels of 173 in October 2023, and blood alcohol levels of 78 on July 28, 2024. Additionally he had ethyl glucuronide levels and ethyl sulfate levels drawn on July 15, 2024 which were markedly elevated indicating significant exposure to alcohol within the past 24 hours. He himself states that he is not drinking but then literally 10 seconds later says he may have had a few beers a couple days ago. He states that when he quit drinking he did not go through withdrawal. He does state that he was in a "detox center." Additionally he is dealing with opioid addiction. Throughout our conversation he was yawning frequently. He states that he did not remember the PA student coming in and speaking with him earlier today. Review of his chart indicates that he has had multiple CT scans that have documented thickened esophageal as well as gastric wall with a hiatal hernia. He states that no one has performed a EGD or a colonoscopy on him previously. Review of his chart also reveals that he was seen for C. difficile colitis by Dr. Crowder but surgical intervention was not indicated. [facility] Active Problems All Active Problems (Updated 08/01/24 @ 19:20 by Eloise Agarwal PA-C) Esophagitis (Acute) Acute epigastric pain (Acute) Esophageal obstruction due to food impaction (Acute) Vomiting (Acute) Abdominal pain (Acute) Pancreatitis (Acute) Anxiety disorder (Acute) Auditory hallucinations (Acute) Vitamin D deficient osteomalacia (Acute) Renal disease (Acute) Anemia (Acute) Elevated liver enzymes (Acute) Erectile dysfunction (Acute) Alcohol use disorder (Acute) Hyperlipemia (Acute) Long-term use of high-risk medication (Acute) Hypertension (Acute) Opioid use disorder in remission (Acute) Medical History Medical History Opioid use disorder Alcohol abuse, in remission Social History Social History (Updated 08/01/24 @ 15:08 by Kristi Pettit RN) Smoking Status: Current every day smoker Number of Years Smoked: 20 How many cigarettes a day do you smoke? (20 cigarettes=1 Pk): 4 Second hand tobacco smoke exposure: No Do you dip or chew tobacco?: No Do you vape?: Yes Patient requests smoking cessation consult: Yes Initiate information on smoking cessation: Yes Living arrangement: At home Relationship: Level: Independent Do you feel safe in your home environment?: Yes Suffered physical, verbal, emotional, or financial abuse?: No ETOH Use: None Frequency: Occasional ETOH Use Details: reports occasional but states has had several "slip ups" this month, not forthcoming on how much he drank on his slip ups. [facility] last drink was 3 days ago. Substance Use: denies use POLST Patient has POLST: No Meds/Allgy Home Medications Ambulatory Orders Medication Instructions Recorded Confirmed rosuvastatin 5 mg tablet 5 mg PO QDAY 90 days #90 tabs 04/08/24 06/16/24 tadalafil 20 mg tablet (Cialis) 20 mg PO QDAY PRN sexual activity 04/08/24 06/16/24 30 days #30 tabs gabapentin 300 mg capsule 300 mg PO TID #90 caps 04/27/24 06/16/24 hydroxyzine pamoate 50 mg capsule 50 mg PO BID PRN anxiety #60 caps 05/07/24 06/16/24 escitalopram oxalate 20 mg tablet 20 mg PO QDAY #90 tabs 06/11/24 06/16/24 atomoxetine 40 mg capsule 40 mg PO QAM #30 caps 07/15/24 07/15/24 quetiapine 25 mg tablet 25 mg PO QDAY #30 tabs 07/15/24 07/15/24 ziprasidone HCl 60 mg capsule 60 mg PO BID #60 caps 07/15/24 07/15/24 buprenorphine 8 mg-naloxone 2 mg 1.5 film buccal QDAY 28 days #42 ea 07/22/24 07/22/24 sublingual film (Suboxone) Allergies Allergies Allergy/AdvReac Type Severity Reaction Status Date / Time No Known Drug Allergies Allergy Verified 08/01/24 14:52 Results Lab Results Lab results reviewed: Yes 08/02/24 12:23 08/02/24 08:40 Other Lab Results: Lab Results x24hrs 08/02/24 08/02/24 08/02/24 Range/Units 12:23 08:40 02:24 WBC 5.6 (4.8-10.8) x10^3/uL RBC 2.76 L (4.70-6.10) 10^6/uL Hgb 9.0 L 8.5 L (14.0-18.0) g/dL Hct 27.0 L 25.7 L (42.0-52.0) % MCV 93.1 (80.0-94.0) fL MCH 30.8 (27.0-31.0) pg MCHC 33.1 (32.0-36.0) g/dL RDW 12.9 (12.0-15.0) % Plt Count 152 (130-450) 10^3/uL MPV 9.3 (7.4-11.4) fL Neut # (Auto) 3.6 (1.5-6.6) 10^3/uL Lymph # (Auto) 1.0 L (1.5-3.5) 10^3/uL [place] # (Auto) 0.7 (0.0-1.0) 10^3/uL Eos # (Auto) 0.2 (0.0-0.7) 10^3/uL Baso # (Auto) 0.0 (0.0-0.1) 10^3/uL Absolute Nucleated RBC 0.00 x10^3/uL Nucleated RBC % 0.0 /100WBC Sodium 137 (135-145) mmol/L Potassium 4.5 (3.5-4.5) mmol/L Chloride 102 (101-111) mmol/L Carbon Dioxide 29 (21-32) mmol/L Anion Gap 6.0 (6-13) BUN 39 H (6-20) mg/dL Creatinine 1.5 H (0.6-1.3) mg/dL Estimated GFR (MDRD) 51 L (>89) Glucose 102 (74-104) mg/dL POC Whole Bld Glucose 100 (70-100) mg/dL Lactic Acid (0.5-2.2) mmol/L Calcium 9.0 (8.5-10.3) mg/dL Magnesium 1.3 L (1.7-2.3) mg/dL Total Bilirubin (0.2-1.0) mg/dL AST (10-42) IU/L ALT (10-60) IU/L Alkaline Phosphatase (42-121) IU/L Troponin I High Sens (2.3-19.7) ng/L Total Protein (6.4-8.9) g/dL Albumin (3.2-5.5) g/dL Globulin (2.1-4.2) g/dL Albumin/Globulin Ratio (1.0-2.2) Lipase (11-82) U/L Procalcitonin Immunoas (<0.5) ng/mL Urine Color Urine Clarity (CLEAR) Urine pH (5.0-7.5) PH Ur Specific [place] (1.002-1.030) Urine Protein (NEGATIVE) mg/dL Urine Glucose (UA) (NEGATIVE) mg/dL Urine Ketones (NEGATIVE) mg/dL Urine Occult Blood (NEGATIVE) Urine Nitrite (NEGATIVE) Urine Bilirubin (NEGATIVE) Urine Urobilinogen (NORMAL) E.U./dL Ur Leukocyte Esterase (NEGATIVE) Ur Microscopic Review Urine Culture Comments Nasal Adenovirus (PCR) Nasal B. parapertussis DNA (PCR) Nasal Coronavir 229E PCR Nasal Coronavir HKU1 PCR Nasal Coronavir NL63 PCR Nasal Coronavir OC43 PCR Nasal Enterovir/Rhinovir PCR Nasal Influenza B PCR Nasal Influenza A PCR Nasal Parainfluen 1 PCR Nasal Parainfluen 2 PCR Nasal Parainfluen 3 PCR Nasal Parainfluen 4 PCR Nasal RSV (PCR) Nasal B.pertussis DNA PCR Nasal C.pneumoniae (PCR) Raghu Human Metapneumo PCR Nasal M.pneumoniae (PCR) Nasal SARS-CoV-2 (PCR) Blood Type Blood Type Recheck Antibody Screen 08/01/24 08/01/24 08/01/24 Range/Units 21:32 17:32 15:38 WBC (4.8-10.8) x10^3/uL RBC (4.70-6.10) 10^6/uL Hgb 8.6 L (14.0-18.0) g/dL Hct 24.4 L (42.0-52.0) % MCV (80.0-94.0) fL MCH (27.0-31.0) pg MCHC (32.0-36.0) g/dL RDW (12.0-15.0) % Plt Count (130-450) 10^3/uL MPV (7.4-11.4) fL Neut # (Auto) (1.5-6.6) 10^3/uL Lymph # (Auto) (1.5-3.5) 10^3/uL [place] # (Auto) (0.0-1.0) 10^3/uL Eos # (Auto) (0.0-0.7) 10^3/uL Baso # (Auto) (0.0-0.1) 10^3/uL Absolute Nucleated RBC x10^3/uL Nucleated RBC % /100WBC Sodium (135-145) mmol/L Potassium (3.5-4.5) mmol/L Chloride (101-111) mmol/L Carbon Dioxide (21-32) mmol/L Anion Gap (6-13) BUN (6-20) mg/dL Creatinine (0.6-1.3) mg/dL Estimated GFR (MDRD) (>89) Glucose (74-104) mg/dL POC Whole Bld Glucose (70-100) mg/dL Lactic Acid 0.7 (0.5-2.2) mmol/L Calcium (8.5-10.3) mg/dL Magnesium (1.7-2.3) mg/dL Total Bilirubin (0.2-1.0) mg/dL AST (10-42) IU/L ALT (10-60) IU/L Alkaline Phosphatase (42-121) IU/L Troponin I High Sens (2.3-19.7) ng/L Total Protein (6.4-8.9) g/dL Albumin (3.2-5.5) g/dL Globulin (2.1-4.2) g/dL Albumin/Globulin Ratio (1.0-2.2) Lipase (11-82) U/L Procalcitonin Immunoas (<0.5) ng/mL Urine Color YELLOW Urine Clarity CLEAR (CLEAR) Urine pH 5.5 (5.0-7.5) PH Ur Specific [place] 1.010 (1.002-1.030) Urine Protein NEGATIVE (NEGATIVE) mg/dL Urine Glucose (UA) NEGATIVE (NEGATIVE) mg/dL Urine Ketones NEGATIVE (NEGATIVE) mg/dL Urine Occult Blood NEGATIVE (NEGATIVE) Urine Nitrite NEGATIVE (NEGATIVE) Urine Bilirubin NEGATIVE (NEGATIVE) Urine Urobilinogen 0.2 (NORMAL) (NORMAL) E.U./dL Ur Leukocyte Esterase NEGATIVE (NEGATIVE) Ur Microscopic Review NOT INDICATED Urine Culture Comments NOT INDICATED Nasal Adenovirus (PCR) NOT DETECTED Nasal B. parapertussis DNA (PCR) NOT DETECTED Nasal Coronavir 229E PCR NOT DETECTED Nasal Coronavir HKU1 PCR NOT DETECTED Nasal Coronavir NL63 PCR NOT DETECTED Nasal Coronavir OC43 PCR NOT DETECTED Nasal Enterovir/Rhinovir PCR NOT DETECTED Nasal Influenza B PCR NOT DETECTED Nasal Influenza A PCR NOT DETECTED Nasal Parainfluen 1 PCR NOT DETECTED Nasal Parainfluen 2 PCR NOT DETECTED Nasal Parainfluen 3 PCR NOT DETECTED Nasal Parainfluen 4 PCR NOT DETECTED Nasal RSV (PCR) NOT DETECTED Nasal B.pertussis DNA PCR NOT DETECTED Nasal C.pneumoniae (PCR) NOT DETECTED Raghu Human Metapneumo PCR NOT DETECTED Nasal M.pneumoniae (PCR) NOT DETECTED Nasal SARS-CoV-2 (PCR) NOT DETECTED Blood Type O POSITIVE Blood Type Recheck Antibody Screen NEGATIVE 08/01/24 08/01/24 Range/Units 15:11 08:40 WBC 7.3 (4.8-10.8) x10^3/uL RBC 3.12 L (4.70-6.10) 10^6/uL Hgb 9.7 L (14.0-18.0) g/dL Hct 28.6 L (42.0-52.0) % MCV 91.7 (80.0-94.0) fL MCH 31.1 H (27.0-31.0) pg MCHC 33.9 (32.0-36.0) g/dL RDW 12.9 (12.0-15.0) % Plt Count 204 (130-450) 10^3/uL MPV 9.8 (7.4-11.4) fL Neut # (Auto) 4.0 (1.5-6.6) 10^3/uL Lymph # (Auto) 2.3 (1.5-3.5) 10^3/uL [place] # (Auto) 0.8 (0.0-1.0) 10^3/uL Eos # (Auto) 0.2 (0.0-0.7) 10^3/uL Baso # (Auto) 0.0 (0.0-0.1) 10^3/uL Absolute Nucleated RBC 0.00 x10^3/uL Nucleated RBC % 0.0 /100WBC Sodium 133 L (135-145) mmol/L Potassium 4.2 (3.5-4.5) mmol/L Chloride 93 L (101-111) mmol/L Carbon Dioxide 30 (21-32) mmol/L Anion Gap 10.0 (6-13) BUN 55 H (6-20) mg/dL Creatinine 2.4 H (0.6-1.3) mg/dL Estimated GFR (MDRD) 30 L (>89) Glucose 115 H (74-104) mg/dL POC Whole Bld Glucose (70-100) mg/dL Lactic Acid (0.5-2.2) mmol/L Calcium 11.6 H (8.5-10.3) mg/dL Magnesium (1.7-2.3) mg/dL Total Bilirubin 0.2 (0.2-1.0) mg/dL AST 15 (10-42) IU/L ALT 17 (10-60) IU/L Alkaline Phosphatase 44 (42-121) IU/L Troponin I High Sens 5.1 (2.3-19.7) ng/L Total Protein 6.1 L (6.4-8.9) g/dL Albumin 4.0 (3.2-5.5) g/dL Globulin 2.1 (2.1-4.2) g/dL Albumin/Globulin Ratio 1.9 (1.0-2.2) Lipase 110 H (11-82) U/L Procalcitonin Immunoas 0.15 (<0.5) ng/mL Urine Color Urine Clarity (CLEAR) Urine pH (5.0-7.5) PH Ur Specific [place] (1.002-1.030) Urine Protein (NEGATIVE) mg/dL Urine Glucose (UA) (NEGATIVE) mg/dL Urine Ketones (NEGATIVE) mg/dL Urine Occult Blood (NEGATIVE) Urine Nitrite (NEGATIVE) Urine Bilirubin (NEGATIVE) Urine Urobilinogen (NORMAL) E.U./dL Ur Leukocyte Esterase (NEGATIVE) Ur Microscopic Review Urine Culture Comments Nasal Adenovirus (PCR) Nasal B. parapertussis DNA (PCR) Nasal Coronavir 229E PCR Nasal Coronavir HKU1 PCR Nasal Coronavir NL63 PCR Nasal Coronavir OC43 PCR Nasal Enterovir/Rhinovir PCR Nasal Influenza B PCR Nasal Influenza A PCR Nasal Parainfluen 1 PCR Nasal Parainfluen 2 PCR Nasal Parainfluen 3 PCR Nasal Parainfluen 4 PCR Nasal RSV (PCR) Nasal B.pertussis DNA PCR Nasal C.pneumoniae (PCR) Raghu Human Metapneumo PCR Nasal M.pneumoniae (PCR) Nasal SARS-CoV-2 (PCR) Blood Type Blood Type Recheck O POSITIVE Antibody Screen Conclusion and Plan Diagnosis Diagnosis: Likely thrush of tongue and esophagus Elevated lipase - question alcoholic pancreatitis Peptic ulcer disease cannot be ruled out at this point. Plan Plan: Treat thrush with Nystatin swish and swallows. Keep NPO or at least fat free liquids and follow lipase. BISAP score is not terribly worriome but patient is clearly at risk. Start Protonix IV to protect stomach and duodenum from PUD and potentially help healing. I have no problem performing an esophagogastroduodenoscopy on this patient but I would like to perform it after his thrush has been treated to allow me to see the mucosa as opposed to just the infection. Should the patient markedly improved with his treatment I would still perform the esophagogastroduodenoscopy as I do not believe the patient is entirely trustworthy with regards to follow- up. It goes, essentially without saying, that the patient must stop his alcohol intake completely as his alcohol and opiate addiction have already shortened his lifespan and continue to shorten it even more. I will continue to follow this patient and appreciate the opportunity to participate in this patient's care. CPT 96366 Review of Systems I was unable to get any meaningful review of systems from the patient due to his mental status. Exam Exam General: 44-year old male, appears older than stated age, in a position in bed in room [facility] at [facility] [employer] [facility], responsive to questions but answers are short and clipped. HEENT: Normocephalic, atraumatic, extraocular movement intact, his sclera are anicteric and slightly injected, his tongue is black extending posteriorly towards his pharynx, his face is reddened Neck: Supple without pain on palpation, mass or bruit Cardiac: Regular rate and rhythm without rub, gallop, or murmur Chest: Clear to auscultation bilaterally Abdomen: Soft, nontender, normoactive bowel sounds, no hepatomegaly, no splenomegaly Genitourinary: Deferred Rectal: Deferred Extremities: No gross neurovascular problem, no clubbing, cyanosis or edema Gait: Not evaluated. Psychiatric: Alert and oriented to person place and time, asks and answers questions but in a clipped in shortened fashion with decreased mood and affect.
[2024-08-02] MEDS: LORazepam 1 MG TABLET PO PRN (14:43)
[2024-08-02] MEDS: NYSTATIN 500000 UNITS/5 ML UDC PO SCH (14:44)
[2024-08-02] MEDS: chlordiazePOXIDE 5 MG CAPSULE PO SCH (14:44)
[2024-08-02] MEDS ORDERED: THIAMINE 100 MG TABLET PO SCH (15:00)
--- NOTE | 2024-08-02 15:56 | PHARMACY PROGRESS NOTE ---
Best Possible Medication History Admit Date and Time: 08/01/241927 Home Medications Medication Instructions Recorded Confirmed Type rosuvastatin 5 mg tablet 5 mg PO QDAY 90 days #90 tabs 04/08/24 08/02/24 Rx tadalafil 20 mg tablet (Cialis) 20 mg PO QDAY PRN sexual activity 04/08/24 08/02/24 Rx 30 days #30 tabs gabapentin 300 mg capsule 300 mg PO TID #90 caps 04/27/24 08/02/24 Rx hydroxyzine pamoate 50 mg capsule 50 mg PO BID PRN anxiety #60 caps 05/07/24 08/02/24 Rx escitalopram oxalate 20 mg tablet 20 mg PO QDAY #90 tabs 06/11/24 08/02/24 Rx atomoxetine 40 mg capsule 40 mg PO QAM #30 caps 07/15/24 08/02/24 Rx quetiapine 25 mg tablet 25 mg PO QDAY #30 tabs 07/15/24 08/02/24 Rx buprenorphine 8 mg-naloxone 2 mg 1.5 film buccal QDAY 28 days #42 ea 07/22/24 08/02/24 Rx sublingual film (Suboxone) lisinopril 40 mg tablet mg 08/02/24 History Processed by: Pharmacy Medications reviewed in ED?: No Medication History completed: Yes Patient Interview: Completed Secondary Source(s): Insurance records [facility] Statement: Per patient interview reviewing [facility] [employer] [facility]. As the person ultimately responsible for medication therapy, providers are able to order a medication from an existing home medication list in [facility] via the "Reconcile Routine" prior to Confirmation of that medication by print support specialist. Such practice is discouraged except when the physician, in their clinical judgment, deems that a medical need exists for a medication without regard to previous use.
[2024-08-02] MEDS: CHOLECALCIFEROL 25 MCG TABLET PO SCH (16:21)
[2024-08-02] MEDS: ONDANSETRON 4 MG/2 ML VIAL IVP PRN (20:03)
[2024-08-02 21:23] LABS: HCT - HEMATOCRIT 26.1 % (42.0-52.0); HGB - HEMOGLOBIN 8.6 g/dL (14.0-18.0)
[2024-08-02] MEDS: PROCHLORPERAZINE 10 MG/2 ML VIAL IVP PRN (21:35)
[2024-08-02] MEDS: ESCITALOPRAM 10 MG TABLET PO SCH (21:35)
[2024-08-02] MEDS: GABAPENTIN 300 MG CAPSULE PO SCH (21:35)
[2024-08-02] MEDS: hydrOXYzine PAMOATE 25 MG CAPSULE PO PRN (21:35)
[2024-08-03] MEDS: LORazepam 2 MG/ML VIAL IVP PRN (01:02)
[2024-08-03 06:11] LABS: BASOPHILS % (AUTO) 0.5 %; EOSINOPHILS # (AUTO) 0.2 10^3/uL (0.0-0.7); EOSINOPHILS % (AUTO) 2.9 %; HCT - HEMATOCRIT 24.7 % (42.0-52.0); HGB - HEMOGLOBIN 8.3 g/dL (14.0-18.0); LYMPHOCYTES # (AUTO) 1.2 10^3/uL (1.5-3.5); LYMPHOCYTES % (AUTO) 20.9 %; MEAN CORPUSCULAR HEMOGLOBIN 31.1 pg (27.0-31.0); MEAN CORPUSCULAR HGB CONC 33.6 g/dL (32.0-36.0); MEAN CORPUSCULAR VOLUME 92.5 fL (80.0-94.0); MEAN PLATELET VOLUME 9.4 fL (7.4-11.4); MONOCYTES # (AUTO) 0.8 10^3/uL (0.0-1.0); MONOCYTES % (AUTO) 13.7 %; NEUTROPHILS # (AUTO) 3.6 10^3/uL (1.5-6.6); NEUTROPHILS % (AUTO) 61.8 %; PLT - PLATELET COUNT 143 10^3/uL (130-450); RED BLOOD COUNT 2.67 10^6/uL (4.70-6.10); RED CELL DISTRIBUTION WIDTH 12.6 % (12.0-15.0); WHITE BLOOD COUNT 5.9 x10^3/uL (4.8-10.8)
[2024-08-03 06:29] LABS: CALCIUM 8.7 mg/dL (8.5-10.3); CREATININE 1.1 mg/dL (0.6-1.3); POTASSIUM 3.9 mmol/L (3.5-4.5)
[2024-08-03] MEDS: THIAMINE 100 MG TABLET PO SCH (09:04)
[2024-08-03] MEDS: MAGNESIUM OXIDE 400 MG TABLET PO SCH (09:04)
[2024-08-03] MEDS: PRENATAL VITAMIN TABLET PO SCH (09:04)
[2024-08-03] MEDS ORDERED: LIDOCAINE VISCOUS 2% 15 ML UDC MM PRN (11:37)
[2024-08-03 12:55] LABS: HCT - HEMATOCRIT 25.1 % (42.0-52.0); HGB - HEMOGLOBIN 8.4 g/dL (14.0-18.0)
[2024-08-03] MEDS: MAG HYDROX/AL HYDROX/SIMETH 30 ML UDC PO PRN (13:23)
[2024-08-03] MEDS: LACTATED RINGERS 1,000 ML IV SCH (17:22)
--- NOTE | 2024-08-03 17:42 | PROVIDER PROGRESS NOTE ---
Subjective Prog Note Date Prog Note Date: 08/03/24 Subjective Pt reports feeling: No change Current Medications Current Medications Current Medications: Current Medications Generic Name Dose Route Start Last Admin Trade Name Alfonzo PRN Reason Stop Dose Admin Acetaminophen 650 mg 08/01/24 20:07 08/02/24 14:20 Acetaminophen 325 Mg Tablet PO 650 mg Q4HR PRN Administration Pain 1 to 4, or Fever Al Hydroxide/Mg Hydroxide 30 ml 08/03/24 11:37 08/03/24 17:26 Mag Hydrox/Al Hydrox/Simeth 30 Ml Udc PO 30 ml Q4HR PRN Administration INDIGESTION Carboxymethylcellulose 1 drops 08/01/24 20:29 Carboxymethylcellulose Ophth Drops EACHEYE Q4HR PRN Dry Eye Chlordiazepoxide HCl 5 mg 08/02/24 15:00 08/03/24 17:22 Chlordiazepoxide 5 Mg Capsule PO 5 mg Q6HR DAPHNEY Administration Cholecalciferol 50 mcg 08/02/24 17:00 08/03/24 09:04 Cholecalciferol 25 Mcg Tablet PO 50 mcg DAILY DAPHNEY Administration Escitalopram Oxalate 20 mg 08/02/24 22:00 08/03/24 09:04 Escitalopram 10 Mg Tablet PO 20 mg DAILY DAPHNEY Administration Gabapentin 300 mg 08/02/24 22:00 08/03/24 13:23 Gabapentin 300 Mg Capsule PO 300 mg TID DAPHNEY Administration Hydroxyzine Pamoate 50 mg 08/02/24 21:16 08/02/24 21:35 Hydroxyzine Pamoate 25 Mg Capsule PO 50 mg BID PRN Administration anxiety Lactated Ringer's 1,000 mls @ 125 mls/hr 08/03/24 18:00 08/03/24 17:22 Lr IV 08/04/24 09:59 125 mls/hr .Q8H DAPHNEY Administration Lidocaine HCl 5 ml 08/03/24 11:37 Lidocaine Viscous 2% 15 Ml Udc MM Q4H PRN Mouth Sore Pain Lorazepam 1 mg 08/02/24 14:34 08/03/24 16:20 Lorazepam 1 Mg Tablet PO 1 mg Q1H PRN Administration CIWA > 8 Protocol Lorazepam 0.5 mg 08/02/24 15:17 08/03/24 01:02 Lorazepam 2 Mg/Ml Vial IVP 0.5 mg Q2H PRN Administration Anxiety Magnesium Oxide 400 mg 08/03/24 08:00 08/03/24 09:04 Magnesium Oxide 400 Mg Tablet PO 400 mg DAILYWM DAPHNEY Administration Morphine Sulfate 2 mg 08/01/24 20:27 08/03/24 16:21 Morphine 2 Mg/Ml Carpuject IVP 2 mg Q4H PRN Administration Severe Pain (Level 7-10) Nystatin 5 ml 08/02/24 15:00 08/03/24 16:20 Nystatin 711536 Units/5 Ml Udc PO 5 ml QID DAPHNEY Administration Ondansetron HCl 4 mg 08/01/24 20:07 08/03/24 16:20 Ondansetron Odt 4 Mg Tablet TL 4 mg Q6HR PRN Administration Nausea / Vomiting Ondansetron HCl 4 mg 08/01/24 20:07 08/02/24 20:03 Ondansetron 4 Mg/2 Ml Vial IVP 4 mg Q6HR PRN Administration Nausea / Vomiting Pantoprazole Sodium 40 mg 08/01/24 21:00 08/03/24 09:05 Pantoprazole 40 Mg Vial IVP 40 mg BID DAPHNEY Administration Multivit/Folic Acid/Iron 1 tab 08/03/24 09:00 08/03/24 09:04 Vitamin Tablet PO 1 tab DAILY DAPHNEY Administration Prochlorperazine Edisylate 10 mg 08/01/24 20:07 08/02/24 21:35 Prochlorperazine 10 Mg/2 Ml Vial IVP 10 mg Q6HR PRN Administration Nausea / Vomiting Quetiapine Fumarate 25 mg 08/01/24 21:00 08/02/24 20:02 Quetiapine 25 Mg Tablet PO 25 mg QPM DAPHNEY Administration Sodium Chloride 10 ml 08/01/24 20:07 08/02/24 02:23 Sodium Chloride Flush 0.9% 10 Ml Syringe IVP 10 ml PRN PRN Administration NEEDED PER PROVIDER ORDERS Sodium Chloride 10 ml 08/02/24 01:00 08/03/24 16:21 Sodium Chloride Flush 0.9% 10 Ml Syringe IVP 10 ml 0100,0900,1700 DAPHNEY Administration Thiamine HCl 100 mg 08/03/24 09:00 08/03/24 09:04 Thiamine 100 Mg Tablet PO 100 mg DAILY DAPHNEY Administration Tramadol HCl 50 mg 08/01/24 20:27 08/03/24 09:35 Tramadol 50 Mg Tablet PO 50 mg Q4HR PRN Administration Moderate Pain (Level 4-6) Objective Vital Signs/Intake & Output Reviewed Vital Signs: Yes Vital Signs: Vital Signs x48h Temp Pulse Resp BP Pulse Ox 08/03/24 15:57 37.1 C 76 18 122/66 93 08/03/24 12:07 37 C 73 18 144/85 H 92 Intake & Output: Intake & Output 07/31/24 08/01/24 08/02/24 08/03/24 23:59 23:59 23:59 23:59 Intake Total 1999 / 1999 270 / 270 1014.2 / 1014.2 Output Total 300 / 300 2100 / 2100 425 / 425 Balance 1700 / 1700 -1830 / -1830 589.2 / 589.2 Weight (kg) 87 kg Objective General Appearance: positive No acute distress and Alert Eyes Bilateral: positive Normal inspection, PERRL, EOMI and Other (Dry eyes. ) ENT: positive Dry mucous membranes and Other (Black coating on base of tongue. ) Neck: positive Nml inspection Respiratory: positive Chest non-tender, No respiratory distress and Breath sounds nml Cardiovascular: positive Regular rate & rhythm, No murmur and No gallop Abdomen: positive Nml bowel sounds and Tenderness Back: positive Nml inspection (No CVA tenderness. ) Skin: positive Color nml and Warm Extremities: positive Non-tender, Full ROM, Nml appearance and No pedal edema Neurologic/Psychiatric: positive Oriented x3 and Motor nml Lab Results 08/03/24 12:49 08/03/24 05:44 Other Labs: Lab Results x24hrs 08/03/24 08/03/24 08/02/24 Range/Units 12:49 05:44 21:19 WBC 5.9 (4.8-10.8) x10^3/uL RBC 2.67 L (4.70-6.10) 10^6/uL Hgb 8.4 L 8.3 L 8.6 L (14.0-18.0) g/dL Hct 25.1 L 24.7 L 26.1 L (42.0-52.0) % MCV 92.5 (80.0-94.0) fL MCH 31.1 H (27.0-31.0) pg MCHC 33.6 (32.0-36.0) g/dL RDW 12.6 (12.0-15.0) % Plt Count 143 (130-450) 10^3/uL MPV 9.4 (7.4-11.4) fL Neut # (Auto) 3.6 (1.5-6.6) 10^3/uL Lymph # (Auto) 1.2 L (1.5-3.5) 10^3/uL [place] # (Auto) 0.8 (0.0-1.0) 10^3/uL Eos # (Auto) 0.2 (0.0-0.7) 10^3/uL Baso # (Auto) 0.0 (0.0-0.1) 10^3/uL Absolute Nucleated RBC 0.00 x10^3/uL Nucleated RBC % 0.0 /100WBC Sodium 137 (135-145) mmol/L Potassium 3.9 (3.5-4.5) mmol/L Chloride 103 (101-111) mmol/L Carbon Dioxide 28 (21-32) mmol/L Anion Gap 6.0 (6-13) BUN 27 H (6-20) mg/dL Creatinine 1.1 (0.6-1.3) mg/dL Estimated GFR (MDRD) 73 L (>89) Glucose 98 (74-104) mg/dL Calcium 8.7 (8.5-10.3) mg/dL Assessment/Plan Problem List (1) Esophagitis: Impression: Continues to have severe epigastric pain, but without any further emesis or melena. I am continuing him on nystatin for his thrush. Surgery recommends 1 more day of nystatin to clear up his thrush before potential scope tomorrow. It is thought that his thrush is what is leading to his difficulty swallowing. Continue nystatin 5 mL p.o. 4 times daily Clear liquid diet Protonix 40 mg IV twice daily Maalox, viscous lidocaine as needed (2) Opioid use disorder in remission: Impression: He is on Suboxone at home. I am holding his Suboxone in the inpatient setting because he has an acute reason for pain. Pain management with as needed Tylenol, morphine 2 mg IV push every 4 hours as needed, tramadol 50 mg p.o. every 4 hours as needed. I have also added viscous lidocaine and Maalox as above (3) Alcohol use disorder: Impression: Continue CIWA protocol with scheduled Librium 5 mg p.o. every 6 hour, vitamin, thiamine p.o. I am also continuing his Ativan 0.5 mg IV push every 2 hours as needed (4) EITAN (acute kidney injury): Impression: His creatinine continues to improve. Today it is 1.1. As his diet is limited, I have started LR at 125
[2024-08-03 20:59] LABS: HCT - HEMATOCRIT 24.6 % (42.0-52.0); HGB - HEMOGLOBIN 8.3 g/dL (14.0-18.0)
[2024-08-04 05:45] LABS: BASOPHILS % (AUTO) 0.3 %; EOSINOPHILS # (AUTO) 0.3 10^3/uL (0.0-0.7); EOSINOPHILS % (AUTO) 5.7 %; HCT - HEMATOCRIT 22.8 % (42.0-52.0); HGB - HEMOGLOBIN 7.6 g/dL (14.0-18.0); LYMPHOCYTES # (AUTO) 1.5 10^3/uL (1.5-3.5); LYMPHOCYTES % (AUTO) 26.4 %; MEAN CORPUSCULAR HEMOGLOBIN 30.8 pg (27.0-31.0); MEAN CORPUSCULAR HGB CONC 33.3 g/dL (32.0-36.0); MEAN CORPUSCULAR VOLUME 92.3 fL (80.0-94.0); MEAN PLATELET VOLUME 9.3 fL (7.4-11.4); MONOCYTES # (AUTO) 0.7 10^3/uL (0.0-1.0); MONOCYTES % (AUTO) 12.7 %; NEUTROPHILS # (AUTO) 3.2 10^3/uL (1.5-6.6); NEUTROPHILS % (AUTO) 54.6 %; PLT - PLATELET COUNT 149 10^3/uL (130-450); RED BLOOD COUNT 2.47 10^6/uL (4.70-6.10); RED CELL DISTRIBUTION WIDTH 12.4 % (12.0-15.0); WHITE BLOOD COUNT 5.8 x10^3/uL (4.8-10.8)
[2024-08-04 06:02] LABS: CALCIUM 8.8 mg/dL (8.5-10.3); CREATININE 0.9 mg/dL (0.6-1.3); POTASSIUM 3.9 mmol/L (3.5-4.5)
[2024-08-04] MEDS: NICOTINE 14 MG PATCH TOP SCH (08:34)
[2024-08-04] MEDS ORDERED: NICOTINE 21 MG PATCH TOP SCH (09:00)
--- NOTE | 2024-08-04 11:05 | ANESTHESIA PROCEDURE NOTE ---
Pre-Anesthesia VS, & Labs Diagnosis Surgical Diagnosis:: anemia Procedure Procedure: EGD Vitals Vital Signs: Temp Pulse Resp BP Pulse Ox 37.1 C 64 18 120/66 96 08/04/24 08:22 08/04/24 08:22 08/04/24 08:22 08/04/24 08:22 08/04/24 08:22 NPO NPO: >8 hours Lab Results Current Lab Results: Laboratory Tests 08/04/24 05:37: WBC 5.8, RBC 2.47 L, Hgb 7.6 L, Hct 22.8 L, MCV 92.3, MCH 30.8, MCHC 33.3, RDW 12.4, Plt Count 149, MPV 9.3, Neut # (Auto) 3.2, Lymph # (Auto) 1.5, [place] # (Auto) 0.7, Eos # (Auto) 0.3, Baso # (Auto) 0.0, Absolute Nucleated RBC 0.00, Nucleated RBC % 0.0, Sodium 136, Potassium 3.9, Chloride 103, Carbon Dioxide 29, Anion Gap 4.0 L, BUN 20, Creatinine 0.9, Estimated GFR (MDRD) 92, G lucose 105 H, Calcium 8.8 08/03/24 20:54: Hgb 8.3 L, Hct 24.6 L 08/03/24 12:49: Hgb 8.4 L, Hct 25.1 L 08/03/24 05:44: WBC 5.9, RBC 2.67 L, Hgb 8.3 L, Hct 24.7 L, MCV 92.5, MCH 31.1 H , MCHC 33.6, RDW 12.6, Plt Count 143, MPV 9.4, Neut # (Auto) 3.6, Lymph # (Auto) 1.2 L, [place] # (Auto) 0.8, Eos # (Auto) 0.2, Baso # (Auto) 0.0, Absolute Nucleated RBC 0.00, Nucleated RBC % 0.0, Sodium 137, Potassium 3.9, Chloride 103, Carbon Dioxide 28, Anion Gap 6.0, BUN 27 H, Creatinine 1.1, Estimated GFR (MDRD) 73 L, Glucose 98, Calcium 8.7 08/02/24 21:19: Hgb 8.6 L, Hct 26.1 L 08/02/24 12:23: Hgb 9.0 L, Hct 27.0 L 08/02/24 08:40: WBC 5.6, RBC 2.76 L, Hgb 8.5 L, Hct 25.7 L, MCV 93.1, MCH 30.8, MCHC 33.1, RDW 12.9, Plt Count 152, MPV 9.3, Neut # (Auto) 3.6, Lymph # (Auto) 1.0 L, [place] # (Auto) 0.7, Eos # (Auto) 0.2, Baso # (Auto) 0.0, Absolute Nucleated RBC 0.00, Nucleated RBC % 0.0, Sodium 137, Potassium 4.5, Chloride 102, Carbon Dioxide 29, Anion Gap 6.0, BUN 39 H, Creatinine 1.5 H, Estimated GFR (MDRD) 51 L, Glucose 102, Calcium 9.0, Magnesium 1.3 L 08/02/24 02:24: POC Whole Bld Glucose 100 08/01/24 21:32: Hgb 8.6 L, Hct 24.4 L, Lactic Acid 0.7 08/01/24 15:38: Blood Type O POSITIVE, Antibody Screen NEGATIVE 08/01/24 15:11: WBC 7.3, RBC 3.12 L, Hgb 9.7 L, Hct 28.6 L, MCV 91.7, MCH 31.1 H , MCHC 33.9, RDW 12.9, Plt Count 204, MPV 9.8, Neut # (Auto) 4.0, Lymph # (Auto) 2.3, [place] # (Auto) 0.8, Eos # (Auto) 0.2, Baso # (Auto) 0.0, Absolute Nucleated RBC 0.00, Nucleated RBC % 0.0, Sodium 133 L, Potassium 4.2, Chloride 93 L, Carbon Dioxide 30, Anion Gap 10.0, BUN 55 H, Creatinine 2.4 H, Estimated GFR (MDRD) 30 L, Glucose 115 H, Calcium 11.6 H, Total Bilirubin 0.2, AST 15, ALT 17, Alkaline Phosphatase 44, Troponin I High Sens 5.1, Total Protein 6.1 L, Albumin 4.0, Globulin 2.1, Albumin/Globulin Ratio 1.9, Lipase 110 H, Blood Type Recheck O POSITIVE 08/01/24 08:40: Procalcitonin Immunoas 0.15 Lab results reviewed: Yes 08/04/24 05:37 08/04/24 05:37 Meds/Allgy Home Medications Ambulatory Orders Medication Instructions Recorded Confirmed rosuvastatin 5 mg tablet 5 mg PO QDAY 90 days #90 tabs 04/08/24 08/02/24 tadalafil 20 mg tablet (Cialis) 20 mg PO QDAY PRN sexual activity 04/08/24 08/02/24 30 days #30 tabs gabapentin 300 mg capsule 300 mg PO TID #90 caps 04/27/24 08/02/24 hydroxyzine pamoate 50 mg capsule 50 mg PO BID PRN anxiety #60 caps 05/07/24 08/02/24 escitalopram oxalate 20 mg tablet 20 mg PO QDAY #90 tabs 06/11/24 08/02/24 atomoxetine 40 mg capsule 40 mg PO QAM #30 caps 07/15/24 08/02/24 quetiapine 25 mg tablet 25 mg PO QDAY #30 tabs 07/15/24 08/02/24 buprenorphine 8 mg-naloxone 2 mg 1.5 film buccal QDAY 28 days #42 ea 07/22/24 08/02/24 sublingual film (Suboxone) lisinopril 40 mg tablet mg 08/02/24 Allergies Allergies Allergy/AdvReac Type Severity Reaction Status Date / Time No Known Drug Allergies Allergy Verified 08/01/24 14:52 PFSH Active Problems All Active Problems Esophagitis (Acute) Acute epigastric pain (Acute) Esophageal obstruction due to food impaction (Acute) Vomiting (Acute) Abdominal pain (Acute) Pancreatitis (Acute) Anxiety disorder (Acute) Auditory hallucinations (Acute) Vitamin D deficient osteomalacia (Acute) Renal disease (Acute) Anemia (Acute) Elevated liver enzymes (Acute) Erectile dysfunction (Acute) Alcohol use disorder (Acute) Hyperlipemia (Acute) Long-term use of high-risk medication (Acute) Hypertension (Acute) Opioid use disorder in remission (Acute) Medical History Medical History Opioid use disorder Alcohol abuse, in remission Social History Social History (Updated 08/01/24 @ 15:08 by Kristi Pettit RN) Smoking Status: Current every day smoker Number of Years Smoked: 20 How many cigarettes a day do you smoke? (20 cigarettes=1 Pk): 4 Second hand tobacco smoke exposure: No Do you dip or chew tobacco?: No Do you vape?: Yes Patient requests smoking cessation consult: Yes Initiate information on smoking cessation: Yes Living arrangement: At home Relationship: Level: Independent Do you feel safe in your home environment?: Yes Suffered physical, verbal, emotional, or financial abuse?: No ETOH Use: None Frequency: Occasional ETOH Use Details: reports occasional but states has had several "slip ups" this month, not forthcoming on how much he drank on his slip ups. states last drink was 3 days ago. Substance Use: denies use POLST Patient has POLST: No Anesthesia Exam (Expanded) Exam General: Alert, Oriented x3 and Cooperative Dental: Poor dentition Mouth Openin Fingerbreadth Neck Mobility: Normal Mallampati classification: II Thyromental Distance: 4-6 cm Plan Plan Anesthesia Type: General and Total IV Consent for Procedure(s) Verified and Reviewed: Yes Code Status: Attempt Resuscitation ASA Classification ASA classification: 3-Severe systemic disease Is this case an emergency?: No
[2024-08-04 13:18] LABS: HGB - HEMOGLOBIN 8.1 g/dL (14.0-18.0)
--- NOTE | 2024-08-04 15:42 | PROVIDER PROGRESS NOTE ---
Subjective Prog Note Date Prog Note Date: 08/04/24 Subjective Subjective: He is eager to go home. does not recall Dr Rizo reviewing endoscopy findings w him earlier. He desperately wants to have a clear liquid diet. I explained to him that he will need several days of IV fluconazole and decreased p.o. intake.Had some melanotic stools before admission. It had been several days since his last drink at the time he was admitted. He does not remark upon anything abnormal with his health in the days prior to admission. He has not been on any recent course of antibiotics for an upper respiratory infection or the like. Current Medications Current Medications Current Medications: Current Medications Generic Name Dose Route Start Last Admin Trade Name Freq PRN Reason Stop Dose Admin Acetaminophen 650 mg 08/01/24 20:07 08/02/24 14:20 Acetaminophen 325 Mg Tablet PO 650 mg Q4HR PRN Administration Pain 1 to 4, or Fever Al Hydroxide/Mg Hydroxide 30 ml 08/03/24 11:37 08/03/24 17:26 Mag Hydrox/Al Hydrox/Simeth 30 Ml Udc PO 30 ml Q4HR PRN Administration INDIGESTION Carboxymethylcellulose 1 drops 08/01/24 20:29 Carboxymethylcellulose Ophth Drops EACHEYE Q4HR PRN Dry Eye Chlordiazepoxide HCl 5 mg 08/02/24 15:00 08/04/24 12:20 Chlordiazepoxide 5 Mg Capsule PO 5 mg Q6HR DAPHNEY Administration Cholecalciferol 50 mcg 08/02/24 17:00 08/04/24 08:33 Cholecalciferol 25 Mcg Tablet PO 50 mcg DAILY DAPHNEY Administration Escitalopram Oxalate 20 mg 08/02/24 22:00 08/04/24 08:36 Escitalopram 10 Mg Tablet PO 20 mg DAILY DAPHNEY Administration Gabapentin 300 mg 08/02/24 22:00 08/04/24 14:15 Gabapentin 300 Mg Capsule PO 300 mg TID DAPHNEY Administration Hydroxyzine Pamoate 50 mg 08/02/24 21:16 08/04/24 08:34 Hydroxyzine Pamoate 25 Mg Capsule PO 50 mg BID PRN Administration anxiety Lidocaine HCl 5 ml 08/03/24 11:37 Lidocaine Viscous 2% 15 Ml Udc MM Q4H PRN Mouth Sore Pain Lorazepam 1 mg 08/02/24 14:34 08/04/24 05:32 Lorazepam 1 Mg Tablet PO 1 mg Q1H PRN Administration CIWA > 8 Protocol Lorazepam 0.5 mg 08/02/24 15:17 08/04/24 14:15 Lorazepam 2 Mg/Ml Vial IVP 0.5 mg Q2H PRN Administration Anxiety Magnesium Oxide 400 mg 08/03/24 08:00 08/04/24 08:34 Magnesium Oxide 400 Mg Tablet PO 400 mg DAILYWM DAPHNEY Administration Morphine Sulfate 2 mg 08/01/24 20:27 08/04/24 14:15 Morphine 2 Mg/Ml Carpuject IVP 2 mg Q4H PRN Administration Severe Pain (Level 7-10) Nicotine 1 patch 08/04/24 09:00 08/04/24 08:34 Nicotine 14 Mg Patch TOP 1 patch DAILY DAPHNEY Administration Nystatin 5 ml 08/02/24 15:00 08/04/24 12:20 Nystatin 556937 Units/5 Ml Udc PO 5 ml QID DAPHNEY Administration Ondansetron HCl 4 mg 08/01/24 20:07 08/04/24 05:33 Ondansetron Odt 4 Mg Tablet TL 4 mg Q6HR PRN Administration Nausea / Vomiting Ondansetron HCl 4 mg 08/01/24 20:07 08/02/24 20:03 Ondansetron 4 Mg/2 Ml Vial IVP 4 mg Q6HR PRN Administration Nausea / Vomiting Pantoprazole Sodium 40 mg 08/01/24 21:00 08/04/24 08:34 Pantoprazole 40 Mg Vial IVP 40 mg BID DAPHNEY Administration Multivit/Folic Acid/Iron 1 tab 08/03/24 09:00 08/04/24 08:33 Vitamin Tablet PO 1 tab DAILY DAPHNEY Administration Prochlorperazine Edisylate 10 mg 08/01/24 20:07 08/02/24 21:35 Prochlorperazine 10 Mg/2 Ml Vial IVP 10 mg Q6HR PRN Administration Nausea / Vomiting Quetiapine Fumarate 25 mg 08/01/24 21:00 08/03/24 20:22 Quetiapine 25 Mg Tablet PO 25 mg QPM DAPHNEY Administration Sodium Chloride 10 ml 08/01/24 20:07 08/02/24 02:23 Sodium Chloride Flush 0.9% 10 Ml Syringe IVP 10 ml PRN PRN Administration NEEDED PER PROVIDER ORDERS Sodium Chloride 10 ml 08/02/24 01:00 08/04/24 08:34 Sodium Chloride Flush 0.9% 10 Ml Syringe IVP 10 ml 0100,0900,1700 DAPHNEY Administration Thiamine HCl 100 mg 08/03/24 09:00 08/04/24 08:34 Thiamine 100 Mg Tablet PO 100 mg DAILY DAPHNEY Administration Tramadol HCl 50 mg 08/01/24 20:27 08/04/24 08:34 Tramadol 50 Mg Tablet PO 50 mg Q4HR PRN Administration Moderate Pain (Level 4-6) Objective Vital Signs/Intake & Output Reviewed Vital Signs: Yes Vital Signs: Vital Signs x48h Temp Pulse Resp BP Pulse Ox 08/04/24 12:20 36.8 C 64 20 157/80 H 95 08/04/24 08:22 37.1 C 64 18 120/66 96 Intake & Output: Intake & Output 08/01/24 08/02/24 08/03/24 08/04/24 23:59 23:59 23:59 23:59 Intake Total 1999 270 / 270 1934.2 / 1934.2 1999 Output Total 300 / 300 2100 / 2100 725 / 725 875 / 875 Balance 1700 / 1700 -1830 / -1830 1209.2 / 1209.2 1125 / 1125 Weight (kg) 87 kg Objective General Appearance: positive No acute distress and Alert Eyes Bilateral: positive Normal inspection and PERRL ENT: positive Other (Black coating on base of tongue. ) Neck: positive Nml inspection Respiratory: positive Chest non-tender, No respiratory distress and Breath sounds nml Cardiovascular: positive Regular rate & rhythm Abdomen: positive Nml bowel sounds and Tenderness Back: positive Nml inspection (No CVA tenderness. ) Skin: positive Color nml and Warm Extremities: positive Non-tender, Full ROM, Nml appearance and No pedal edema Neurologic/Psychiatric: positive Oriented x3 and Motor nml Lab Results 08/04/24 20:53 08/04/24 05:37 Other Labs: Lab Results x24hrs 08/04/24 08/04/24 08/03/24 Range/Units 13:13 05:37 20:54 WBC 5.8 (4.8-10.8) x10^3/uL RBC 2.47 L (4.70-6.10) 10^6/uL Hgb 8.1 L 7.6 L 8.3 L (14.0-18.0) g/dL Hct 24.0 L 22.8 L 24.6 L (42.0-52.0) % MCV 92.3 (80.0-94.0) fL MCH 30.8 (27.0-31.0) pg MCHC 33.3 (32.0-36.0) g/dL RDW 12.4 (12.0-15.0) % Plt Count 149 (130-450) 10^3/uL MPV 9.3 (7.4-11.4) fL Neut # (Auto) 3.2 (1.5-6.6) 10^3/uL Lymph # (Auto) 1.5 (1.5-3.5) 10^3/uL [place] # (Auto) 0.7 (0.0-1.0) 10^3/uL Eos # (Auto) 0.3 (0.0-0.7) 10^3/uL Baso # (Auto) 0.0 (0.0-0.1) 10^3/uL Absolute Nucleated RBC 0.00 x10^3/uL Nucleated RBC % 0.0 /100WBC Sodium 136 (135-145) mmol/L Potassium 3.9 (3.5-4.5) mmol/L Chloride 103 (101-111) mmol/L Carbon Dioxide 29 (21-32) mmol/L Anion Gap 4.0 L (6-13) BUN 20 (6-20) mg/dL Creatinine 0.9 (0.6-1.3) mg/dL Estimated GFR (MDRD) 92 (>89) Glucose 105 H (74-104) mg/dL Calcium 8.8 (8.5-10.3) mg/dL ABX Reporting Has patient been on IV antibiotics over the past 48 hours?: Yes Assessment/Plan Problem List (1) Esophagitis: Impression: Endoscopy today. Discussed with Dr. Rizo post endoscopy. Patient had a severe plaque like esophagitis. Likely fungal in nature these were white plaques coating the esophagus. Fungal cultures will sent but will not be back for some time. Doctor's office is recommended that the patient be on IV fluconazole for at least several days. And a total course of 2 weeks of fluconazole. We will follow his hemoglobin as well. Will continue with nystatin swish and swallow. He will be on a clear liquid diet for a period of 3 days and then can advance. Protonix 40 mg IV twice daily Maalox, viscous lidocaine as needed (2) Opioid use disorder in remission: Impression: He is on Suboxone at home. I am holding his Suboxone in the inpatient setting because he has an acute reason for pain. Pain management with as needed Tylenol, morphine 2 mg IV push every 4 hours as needed, tramadol 50 mg p.o. every 4 hours as needed. I have also added viscous lidocaine and Maalox as above (3) Alcohol use disorder: Impression: Continue CIWA protocol with scheduled Librium 5 mg p.o. every 6 hour, vitamin, thiamine p.o. I am also continuing his Ativan 0.5 mg IV push every 2 hours as needed (4) EITAN (acute kidney injury): Impression: His creatinine continues to improve. Today it is 0.9 I will continue LR at 125cc/hr as long as he is on clears, as po intake is limited. I have spent 40 minutes in the care of this patient today. This includes time [id number], review and ordering of diagnostic imaging and laboratory studies and consultation with other providers.. Monitoring the patient's signs symptoms, evaluation of medication effectiveness and patient's response to treatment.
[2024-08-04] MEDS ORDERED: MIDAZOLAM 2 MG/2 ML VIAL ONE (17:02)
[2024-08-04] MEDS ORDERED: LIDOCAINE-PF 2% 10 ML AMP SUBQ ONE (17:04)
[2024-08-04] MEDS ORDERED: PROPOFOL 200 MG/20 ML VIAL IVP ONE (17:04)
[2024-08-04] MEDS ORDERED: KETAMINE 500 MG/10 ML VIAL ONE (17:04)
[2024-08-04] MEDS ORDERED: VASOPRESSIN 20 UNIT/ML VIAL ONE (17:08)
--- NOTE | 2024-08-04 17:18 | PROVIDER PROGRESS NOTE ---
Subjective General Admit Date: 08/01/24 Procedure Date: 08/04/24 Post Op Days: 0 Review of Systems I was unable to get any meaningful review of systems from the patient due to his mental status. Exam Exam General: 44-year old male, appears older than stated age, in a position in bed in room 7 at [facility]'s MedSurg unit, responsive to que stions but better than before. Generally more alert. Asking when he can eat. HEENT: Normocephalic, atraumatic, extraocular movement intact, his sclera are anicteric and slightly injected, his tongue is black extending posteriorly towards his pharynx, his face is reddened Neck: Supple without pain on palpation, mass or bruit Cardiac: Regular rate and rhythm without rub, gallop, or murmur Chest: Clear to auscultation bilaterally Abdomen: Soft, nontender, normoactive bowel sounds, no hepatomegaly, no splenomegaly Genitourinary: Deferred Rectal: Deferred Extremities: No gross neurovascular problem, no clubbing, cyanosis or edema Gait: Not evaluated. Psychiatric: Alert and oriented to person place and time, asks and answers questions but in a clipped in shortened fashion with decreased mood and affect. Impression/Plan Problem List (1) Esophagitis: (2) Opioid use disorder in remission: (3) Alcohol use disorder: (4) EITAN (acute kidney injury): (5) Anemia: Plan: Esophagogastroduodenoscopy with possible biopsies and/or polypectomies. Indications, procedure, alternatives (such as barium studies and even no procedure at all and risks including but not limited to perforation requiring operative repair, bleeding with its risks, and were fully explained to him. I explained that MAC anesthesia is administered by our anesthetists and that they would be talking to him in greater detail about this. I explained that his posterior oropharynx would also be anesthetized for the procedure. Review of his history does not reveal any significant systemic disease that would contraindicate use of conscious sedation or MAC anesthesia but he has multiple comorbidities including opioid dependence and alcohol dependence that should be addressed as they will severely shorten his life.. All questions were fully answered. Verbal and written consent was obtained. The patient in preparation for his esophagogastroduodenoscopy will be n.p.o. I have asked him to let us know if there is any way we can make his stay at [facility] more comfortable and he stated that he would. 15 minutes of [id number] time spent with the patient the majority of which was spent in discussion, coordination of their care and completion of the requisite paperwork CPT 12937 Qualifiers: Anemia type: unspecified type Qualified Code(s): D64.9 - Anemia, unspecified
--- NOTE | 2024-08-04 19:07 | ANESTHESIA POST OP EVALUATION ---
Anesthesia Post Eval Post Anesthesia Eval Vitals: Last Vital Signs Temp 36.9 C 08/04/24 18:28 Pulse 61 08/04/24 18:28 Resp 16 08/04/24 18:28 BP 123/71 08/04/24 18:28 Pulse Ox 98 08/04/24 18:28 CV Function Including HR & BP: Stable Pain Control: Satisfactory Nausea & Vomiting: Negative Mental Status: Baseline Respiratory Status: Airway Patent Hydration Status: Satisfactory Anesthesia Complications: None
[2024-08-04 21:06] LABS: HCT - HEMATOCRIT 22.9 % (42.0-52.0); HGB - HEMOGLOBIN 7.7 g/dL (14.0-18.0)
[2024-08-04] MEDS: FLUCONAZOLE 200 MG/100 ML 100 ML IV SCH (22:30)
[2024-08-04] MEDS: MORPHINE 2 MG/ML CARPUJECT IVP PRN (22:36)
[2024-08-04] MEDS: LACTATED RINGERS 1,000 ML IV SCH (22:36)
[2024-08-05 06:50] LABS: BASOPHILS % (AUTO) 0.6 %; EOSINOPHILS # (AUTO) 0.4 10^3/uL (0.0-0.7); EOSINOPHILS % (AUTO) 5.8 %; HCT - HEMATOCRIT 25.2 % (42.0-52.0); HGB - HEMOGLOBIN 8.1 g/dL (14.0-18.0); LYMPHOCYTES # (AUTO) 1.9 10^3/uL (1.5-3.5); MEAN CORPUSCULAR HEMOGLOBIN 30.7 pg (27.0-31.0); MEAN CORPUSCULAR HGB CONC 32.1 g/dL (32.0-36.0); MEAN CORPUSCULAR VOLUME 95.5 fL (80.0-94.0); MEAN PLATELET VOLUME 9.3 fL (7.4-11.4); MONOCYTES # (AUTO) 0.7 10^3/uL (0.0-1.0); MONOCYTES % (AUTO) 11.7 %; NEUTROPHILS # (AUTO) 3.2 10^3/uL (1.5-6.6); NEUTROPHILS % (AUTO) 51.6 %; PLT - PLATELET COUNT 163 10^3/uL (130-450); RED BLOOD COUNT 2.64 10^6/uL (4.70-6.10); RED CELL DISTRIBUTION WIDTH 12.6 % (12.0-15.0); WHITE BLOOD COUNT 6.2 x10^3/uL (4.8-10.8)
[2024-08-05 07:38] LABS: CALCIUM 8.9 mg/dL (8.5-10.3); CREATININE 0.9 mg/dL (0.6-1.3); POTASSIUM 3.9 mmol/L (3.5-4.5)
[2024-08-05] MEDS ORDERED: PHENOL THROAT SPRAY 177 ML MM PRN (12:16)
[2024-08-05 13:18] LABS: HCT - HEMATOCRIT 24.3 % (42.0-52.0); HGB - HEMOGLOBIN 8.3 g/dL (14.0-18.0)
--- NOTE | 2024-08-05 20:18 | PROVIDER PROGRESS NOTE ---
Subjective Prog Note Date Prog Note Date: 08/05/24 Subjective Pt reports feeling: No change Subjective: maybe a little less dysphagia. Has been taking clears well. bored. Mother at bedside this AM, and reviewed finding of the endoscopy with her. This afternoon, his co workers dropped off a bag of goodies. Current Medications Current Medications Current Medications: Current Medications Generic Name Dose Route Start Last Admin Trade Name Edvinq PRN Reason Stop Dose Admin Acetaminophen 650 mg 08/01/24 20:07 08/04/24 23:55 Acetaminophen 325 Mg Tablet PO 650 mg Q4HR PRN Administration Pain 1 to 4, or Fever Al Hydroxide/Mg Hydroxide 30 ml 08/03/24 11:37 08/03/24 17:26 Mag Hydrox/Al Hydrox/Simeth 30 Ml Udc PO 30 ml Q4HR PRN Administration INDIGESTION Carboxymethylcellulose 1 drops 08/01/24 20:29 Carboxymethylcellulose Ophth Drops EACHEYE Q4HR PRN Dry Eye Cholecalciferol 50 mcg 08/02/24 17:00 08/05/24 09:09 Cholecalciferol 25 Mcg Tablet PO 50 mcg DAILY DAPHNEY Administration Escitalopram Oxalate 20 mg 08/02/24 22:00 08/05/24 09:09 Escitalopram 10 Mg Tablet PO 20 mg DAILY DAPHNEY Administration Gabapentin 300 mg 08/02/24 22:00 08/05/24 13:05 Gabapentin 300 Mg Capsule PO 300 mg TID DAPHNEY Administration Hydroxyzine Pamoate 50 mg 08/02/24 21:16 08/04/24 08:34 Hydroxyzine Pamoate 25 Mg Capsule PO 50 mg BID PRN Administration anxiety Fluconazole 100 mls @ 100 mls/hr 08/04/24 21:57 08/05/24 10:15 Diflucan 200 Mg/100 Ml IV 08/17/24 09:59 Infused DAILY DAPHNEY Infusion Lidocaine HCl 5 ml 08/03/24 11:37 Lidocaine Viscous 2% 15 Ml Udc MM Q4H PRN Mouth Sore Pain Lorazepam 0.5 mg 08/02/24 15:17 08/05/24 18:49 Lorazepam 2 Mg/Ml Vial IVP 0.5 mg Q2H PRN Administration Anxiety Magnesium Oxide 400 mg 08/03/24 08:00 08/05/24 07:36 Magnesium Oxide 400 Mg Tablet PO 400 mg DAILYWM DAPHNEY Administration Morphine Sulfate 2 mg 08/04/24 22:16 08/05/24 18:49 Morphine 2 Mg/Ml Carpuject IVP 2 mg Q3H PRN Administration Severe Pain (Level 7-10) Nicotine 1 patch 08/04/24 09:00 08/05/24 09:25 Nicotine 14 Mg Patch TOP 1 patch DAILY DAPHNEY Administration Nystatin 5 ml 08/02/24 15:00 08/05/24 17:20 Nystatin [id number] Units/5 Ml Udc PO 5 ml QID DAPHNEY Administration Ondansetron HCl 4 mg 08/01/24 20:07 08/04/24 05:33 Ondansetron Odt 4 Mg Tablet TL 4 mg Q6HR PRN Administration Nausea / Vomiting Ondansetron HCl 4 mg 08/01/24 20:07 08/02/24 20:03 Ondansetron 4 Mg/2 Ml Vial IVP 4 mg Q6HR PRN Administration Nausea / Vomiting Pantoprazole Sodium 40 mg 08/01/24 21:00 08/05/24 09:10 Pantoprazole 40 Mg Vial IVP 40 mg BID DAPHNEY Administration Atomoxetine 40 Mg 1 each 08/06/24 09:00 Capsule PO DAILY [facility] Phenol/Menthol 4 sprays 08/05/24 12:16 Phenol Throat [place] 177 Ml MM Q4HR PRN Mouth Sore Pain Multivit/Folic Acid/Iron 1 tab 08/03/24 09:00 08/05/24 09:09 Vitamin Tablet PO 1 tab DAILY DAPHNEY Administration Prochlorperazine Edisylate 10 mg 08/01/24 20:07 08/05/24 07:22 Prochlorperazine 10 Mg/2 Ml Vial IVP 10 mg Q6HR PRN Administration Nausea / Vomiting Quetiapine Fumarate 25 mg 08/01/24 21:00 08/04/24 20:50 Quetiapine 25 Mg Tablet PO 25 mg QPM DAPHNEY Administration Sodium Chloride 10 ml 08/01/24 20:07 08/02/24 02:23 Sodium Chloride Flush 0.9% 10 Ml Syringe IVP 10 ml PRN PRN Administration NEEDED PER PROVIDER ORDERS Sodium Chloride 10 ml 08/02/24 01:00 08/05/24 17:17 Sodium Chloride Flush 0.9% 10 Ml Syringe IVP Not Given 0100,0900,1700 [facility] Thiamine HCl 100 mg 08/03/24 09:00 08/05/24 09:09 Thiamine 100 Mg Tablet PO 100 mg DAILY DAPHNEY Administration Tramadol HCl 50 mg 08/01/24 20:27 08/05/24 07:36 Tramadol 50 Mg Tablet PO 50 mg Q4HR PRN Administration Moderate Pain (Level 4-6) Objective Vital Signs/Intake & Output Reviewed Vital Signs: Yes Vital Signs: Vital Signs x48h Temp Pulse Resp BP Pulse Ox 08/05/24 16:57 36.6 C 71 18 146/90 H 96 Intake & Output: Intake & Output 08/02/24 08/03/24 08/04/24 08/05/24 23:59 23:59 23:59 23:59 Intake Total 270 / 270 1934.2 / 1934.2 2099 / 2099 2710 / 2710 Output Total 2099 725 / 725 1100 / 1100 208 / 2079 Balance -1830 / -1830 1209.2 / 1209.2 1000 / 1000 630 / 630 Objective General Appearance: positive No acute distress and Alert Eyes Bilateral: positive Normal inspection ENT: positive Other (Black coating at tongue base no longer preset. ) Neck: positive Nml inspection Respiratory: positive Chest non-tender, No respiratory distress and Breath sounds nml Cardiovascular: positive Regular rate & rhythm Abdomen: positive Nml bowel sounds Back: positive Nml inspection (No CVA tenderness. ) Skin: positive Color nml and Warm Extremities: positive Non-tender, Full ROM, Nml appearance and No pedal edema Neurologic/Psychiatric: positive Oriented x3 and Motor nml Lab Results 08/05/24 21:25 08/05/24 07:16 Other Labs: Lab Results x24hrs 08/05/24 08/05/24 08/05/24 Range/Units 13:04 07:16 06:46 WBC 6.2 (4.8-10.8) x10^3/uL RBC 2.64 L (4.70-6.10) 10^6/uL Hgb 8.3 L 8.1 L (14.0-18.0) g/dL Hct 24.3 L 25.2 L (42.0-52.0) % MCV 95.5 H (80.0-94.0) fL MCH 30.7 (27.0-31.0) pg MCHC 32.1 (32.0-36.0) g/dL RDW 12.6 (12.0-15.0) % Plt Count 163 (130-450) 10^3/uL MPV 9.3 (7.4-11.4) fL Neut # (Auto) 3.2 (1.5-6.6) 10^3/uL Lymph # (Auto) 1.9 (1.5-3.5) 10^3/uL [place] # (Auto) 0.7 (0.0-1.0) 10^3/uL Eos # (Auto) 0.4 (0.0-0.7) 10^3/uL Baso # (Auto) 0.0 (0.0-0.1) 10^3/uL Absolute Nucleated RBC 0.00 x10^3/uL Nucleated RBC % 0.0 /100WBC Sodium 136 (135-145) mmol/L Potassium 3.9 (3.5-4.5) mmol/L Chloride 104 (101-111) mmol/L Carbon Dioxide 26 (21-32) mmol/L Anion Gap 6.0 (6-13) BUN 14 (6-20) mg/dL Creatinine 0.9 (0.6-1.3) mg/dL Estimated GFR (MDRD) 92 (>89) Glucose 97 (74-104) mg/dL Calcium 8.9 (8.5-10.3) mg/dL 08/04/24 Range/Units 20:53 WBC (4.8-10.8) x10^3/uL RBC (4.70-6.10) 10^6/uL Hgb 7.7 L (14.0-18.0) g/dL Hct 22.9 L (42.0-52.0) % MCV (80.0-94.0) fL MCH (27.0-31.0) pg MCHC (32.0-36.0) g/dL RDW (12.0-15.0) % Plt Count (130-450) 10^3/uL MPV (7.4-11.4) fL Neut # (Auto) (1.5-6.6) 10^3/uL Lymph # (Auto) (1.5-3.5) 10^3/uL [place] # (Auto) (0.0-1.0) 10^3/uL Eos # (Auto) (0.0-0.7) 10^3/uL Baso # (Auto) (0.0-0.1) 10^3/uL Absolute Nucleated RBC x10^3/uL Nucleated RBC % /100WBC Sodium (135-145) mmol/L Potassium (3.5-4.5) mmol/L Chloride (101-111) mmol/L Carbon Dioxide (21-32) mmol/L Anion Gap (6-13) BUN (6-20) mg/dL Creatinine (0.6-1.3) mg/dL Estimated GFR (MDRD) (>89) Glucose (74-104) mg/dL Calcium (8.5-10.3) mg/dL ABX Reporting Has patient been on IV antibiotics over the past 48 hours?: Yes Assessment/Plan Problem List (1) Esophagitis: Impression: Severe plaquelike esophagitis seen on endoscopy. He is day 2/14 fluconazole, also receiving swish and swallow nystatin. Likely fungal in nature these were white plaques coating the esophagus. Fungal cultures will sent but will not be back for some time. Dr Rizo recommended that the patient be on IV fluconazole for at least several days. And a total course of 2 weeks of fluconazole. We will follow his hemoglobin as well. Will continue with nystatin swish and swallow. He will be on a clear liquid diet for a period of 3 days and then can advance. Protonix 40 mg IV twice daily Maalox, viscous lidocaine as needed (2) Opioid use disorder in remission: Impression: He is on Suboxone at home. I am holding his Suboxone in the inpatient setting because he has an acute reason for pain. Pain management with as needed Tylenol, morphine 2 mg IV push every 4 hours as needed, tramadol 50 mg p.o. every 4 hours as needed. I have also added viscous lidocaine and Maalox as above (3) Alcohol use disorder: Impression: CIWA protocol was stopped, vitamin, thiamine p.o. I am also continuing his Ativan 0.5 mg IV push every 2 hours as needed. Joint visit with Joann Kilpatrick today, who is patient's psychiatric tech. (4) EITAN (acute kidney injury): Impression: His creatinine continues to improve. Today it is 0.9 I have dc'ed IVF today, and encouraged the patient to walk the halls if he would like. . I have spent 40 minutes in the care of this patient today. This includes time [id number], review and ordering of diagnostic imaging and laboratory studies and consultation with other providers.. Monitoring the patient's signs symptoms, evaluation of medication effectiveness and patient's response to treatment.
[2024-08-05 21:29] LABS: HCT - HEMATOCRIT 23.2 % (42.0-52.0); HGB - HEMOGLOBIN 7.9 g/dL (14.0-18.0)
[2024-08-06 06:01] LABS: BASOPHILS % (AUTO) 0.7 %; EOSINOPHILS # (AUTO) 0.3 10^3/uL (0.0-0.7); HGB - HEMOGLOBIN 8.1 g/dL (14.0-18.0); LYMPHOCYTES # (AUTO) 1.9 10^3/uL (1.5-3.5); LYMPHOCYTES % (AUTO) 33.5 %; MEAN CORPUSCULAR HEMOGLOBIN 30.8 pg (27.0-31.0); MEAN CORPUSCULAR HGB CONC 33.8 g/dL (32.0-36.0); MEAN CORPUSCULAR VOLUME 91.3 fL (80.0-94.0); MEAN PLATELET VOLUME 9.4 fL (7.4-11.4); MONOCYTES # (AUTO) 0.7 10^3/uL (0.0-1.0); MONOCYTES % (AUTO) 12.9 %; NEUTROPHILS # (AUTO) 2.6 10^3/uL (1.5-6.6); NEUTROPHILS % (AUTO) 46.5 %; PLT - PLATELET COUNT 189 10^3/uL (130-450); RED BLOOD COUNT 2.63 10^6/uL (4.70-6.10); RED CELL DISTRIBUTION WIDTH 12.8 % (12.0-15.0); WHITE BLOOD COUNT 5.7 x10^3/uL (4.8-10.8)
[2024-08-06 06:19] LABS: CALCIUM 8.8 mg/dL (8.5-10.3); CREATININE 0.9 mg/dL (0.6-1.3); POTASSIUM 3.7 mmol/L (3.5-4.5)
[2024-08-06] MEDS ORDERED: oxyCODONE 5 MG TABLET PO PRN (18:37)
--- NOTE | 2024-08-06 18:40 | PROVIDER PROGRESS NOTE ---
Subjective Prog Note Date Prog Note Date: 08/06/24 Subjective Pt reports feeling: Improved Subjective: slowly better. continues to take ativan and morphine. has a history of addiction and has been on suboxone, expected to dc to home on this. Otherwise doing well and has tolerated a full liquid diet today. He is getting his 3rd dose of IV fluconazole this evening. Current Medications Current Medications Current Medications: Current Medications Generic Name Dose Route Start Last Admin Trade Name Freq PRN Reason Stop Dose Admin Acetaminophen 650 mg 08/01/24 20:07 08/04/24 23:55 Acetaminophen 325 Mg Tablet PO 650 mg Q4HR PRN Administration Pain 1 to 4, or Fever Al Hydroxide/Mg Hydroxide 30 ml 08/03/24 11:37 08/03/24 17:26 Mag Hydrox/Al Hydrox/Simeth 30 Ml Udc PO 30 ml Q4HR PRN Administration INDIGESTION Carboxymethylcellulose 1 drops 08/01/24 20:29 Carboxymethylcellulose Ophth Drops EACHEYE Q4HR PRN Dry Eye Cholecalciferol 50 mcg 08/02/24 17:00 08/06/24 08:28 Cholecalciferol 25 Mcg Tablet PO 50 mcg DAILY DAPHNEY Administration Escitalopram Oxalate 20 mg 08/02/24 22:00 08/06/24 08:28 Escitalopram 10 Mg Tablet PO 20 mg DAILY DAPHNEY Administration Gabapentin 300 mg 08/02/24 22:00 08/06/24 14:33 Gabapentin 300 Mg Capsule PO 300 mg TID DAPHNEY Administration Hydroxyzine Pamoate 50 mg 08/02/24 21:16 08/04/24 08:34 Hydroxyzine Pamoate 25 Mg Capsule PO 50 mg BID PRN Administration anxiety Fluconazole 100 mls @ 100 mls/hr 08/04/24 21:57 08/06/24 09:29 Diflucan 200 Mg/100 Ml IV 08/17/24 09:59 Infused DAILY DAPHNEY Infusion Lidocaine HCl 5 ml 08/03/24 11:37 Lidocaine Viscous 2% 15 Ml Udc MM Q4H PRN Mouth Sore Pain Lorazepam 0.5 mg 08/02/24 15:17 08/06/24 17:34 Lorazepam 2 Mg/Ml Vial IVP 0.5 mg Q2H PRN Administration Anxiety Magnesium Oxide 400 mg 08/03/24 08:00 08/06/24 07:41 Magnesium Oxide 400 Mg Tablet PO 400 mg DAILYWM DAPHNEY Administration Morphine Sulfate 2 mg 08/04/24 22:16 08/06/24 17:34 Morphine 2 Mg/Ml Carpuject IVP 2 mg Q3H PRN Administration Severe Pain (Level 7-10) Nicotine 1 patch 08/04/24 09:00 08/06/24 08:28 Nicotine 14 Mg Patch TOP 1 patch DAILY DAPHNEY Administration Nystatin 5 ml 08/02/24 15:00 08/06/24 16:31 Nystatin [id number] Units/5 Ml Udc PO 5 ml QID DAPHNEY Administration Ondansetron HCl 4 mg 08/01/24 20:07 08/06/24 01:27 Ondansetron Odt 4 Mg Tablet TL 4 mg Q6HR PRN Administration Nausea / Vomiting Pantoprazole Sodium 40 mg 08/01/24 21:00 08/06/24 08:28 Pantoprazole 40 Mg Vial IVP 40 mg BID DAPHNEY Administration Atomoxetine 40 Mg 1 each 08/06/24 09:00 08/06/24 08:29 Capsule PO Not Given DAILY [facility] Phenol/Menthol 4 sprays 08/05/24 12:16 Phenol Throat [place] 177 Ml MM Q4HR PRN Mouth Sore Pain Multivit/Folic Acid/Iron 1 tab 08/03/24 09:00 08/06/24 08:28 Vitamin Tablet PO 1 tab DAILY DAPHNEY Administration Prochlorperazine Edisylate 10 mg 08/01/24 20:07 08/05/24 07:22 Prochlorperazine 10 Mg/2 Ml Vial IVP 10 mg Q6HR PRN Administration Nausea / Vomiting Quetiapine Fumarate 25 mg 08/01/24 21:00 08/05/24 21:24 Quetiapine 25 Mg Tablet PO 25 mg QPM DAPHNEY Administration Sodium Chloride 10 ml 08/01/24 20:07 08/02/24 02:23 Sodium Chloride Flush 0.9% 10 Ml Syringe IVP 10 ml PRN PRN Administration NEEDED PER PROVIDER ORDERS Sodium Chloride 10 ml 08/02/24 01:00 08/06/24 16:31 Sodium Chloride Flush 0.9% 10 Ml Syringe IVP 10 ml 0100,0900,1700 DAPHNEY Administration Thiamine HCl 100 mg 08/03/24 09:00 08/06/24 08:28 Thiamine 100 Mg Tablet PO 100 mg DAILY DAPHNEY Administration Tramadol HCl 50 mg 08/01/24 20:27 08/05/24 07:36 Tramadol 50 Mg Tablet PO 50 mg Q4HR PRN Administration Moderate Pain (Level 4-6) Objective Vital Signs/Intake & Output Reviewed Vital Signs: Yes Vital Signs: Vital Signs x48h Temp Pulse Resp BP Pulse Ox 08/06/24 15:50 37.0 C 69 18 136/71 H 95 Intake & Output: Intake & Output 08/03/24 08/04/24 08/05/24 08/06/24 23:59 23:59 23:59 23:59 Intake Total 1934.2 / 1934.2 2100 / 2100 3070 / 3070 535 / 535 Output Total 725 / 725 1100 / 1100 2380 / 2380 1475 / 1475 Balance 1209.2 / 1209.2 1000 / 1000 690 / 690 -940 / -940 Objective General Appearance: positive No acute distress and Alert Eyes Bilateral: positive Normal inspection ENT: positive Other (Black coating at tongue base no longer preset. ) Neck: positive Nml inspection Respiratory: positive Chest non-tender, No respiratory distress and Breath sounds nml Cardiovascular: positive Regular rate & rhythm Abdomen: positive Nml bowel sounds Back: positive Nml inspection (No CVA tenderness. ) Skin: positive Color nml and Warm Extremities: positive Non-tender, Full ROM, Nml appearance and No pedal edema Neurologic/Psychiatric: positive Oriented x3 and Motor nml Lab Results 08/06/24 05:50 08/06/24 05:50 Other Labs: Lab Results x24hrs 08/06/24 08/05/24 Range/Units 05:50 21:25 WBC 5.7 (4.8-10.8) x10^3/uL RBC 2.63 L (4.70-6.10) 10^6/uL Hgb 8.1 L 7.9 L (14.0-18.0) g/dL Hct 24.0 L 23.2 L (42.0-52.0) % MCV 91.3 (80.0-94.0) fL MCH 30.8 (27.0-31.0) pg MCHC 33.8 (32.0-36.0) g/dL RDW 12.8 (12.0-15.0) % Plt Count 189 (130-450) 10^3/uL MPV 9.4 (7.4-11.4) fL Neut # (Auto) 2.6 (1.5-6.6) 10^3/uL Lymph # (Auto) 1.9 (1.5-3.5) 10^3/uL [place] # (Auto) 0.7 (0.0-1.0) 10^3/uL Eos # (Auto) 0.3 (0.0-0.7) 10^3/uL Baso # (Auto) 0.0 (0.0-0.1) 10^3/uL Absolute Nucleated RBC 0.00 x10^3/uL Nucleated RBC % 0.0 /100WBC Sodium 138 (135-145) mmol/L Potassium 3.7 (3.5-4.5) mmol/L Chloride 106 (101-111) mmol/L Carbon Dioxide 26 (21-32) mmol/L Anion Gap 6.0 (6-13) BUN 12 (6-20) mg/dL Creatinine 0.9 (0.6-1.3) mg/dL Estimated GFR (MDRD) 92 (>89) Glucose 104 (74-104) mg/dL Calcium 8.8 (8.5-10.3) mg/dL ABX Reporting Has patient been on IV antibiotics over the past 48 hours?: Yes Assessment/Plan Problem List (1) Esophagitis: Impression: Severe plaquelike esophagitis seen on endoscopy. He is day 3/14 fluconazole, also receiving swish and swallow nystatin. Likely fungal in nature these were white plaques coating the esophagus. Fungal cultures will sent but will not be back for some time. Dr Rizo recommended that the patient be on IV fluconazole for at least several days. And a total course of 2 weeks of fluconazole. We will follow his hemoglobin as well. Will continue with nystatin swish and swallow. He will be on a clear liquid diet for a period of 3 days and then can advance. Protonix 40 mg IV twice daily Maalox, viscous lidocaine as needed (2) Opioid use disorder in remission: Impression: He is on Suboxone at home. I am holding his Suboxone in the inpatient setting because he has an acute reason for pain. Pain management with as needed Tylenol, morphine 2 mg IV push every 4 hours as needed, tramadol 50 mg p.o. every 4 hours as needed. I have also added viscous lidocaine and Maalox as above (3) Alcohol use disorder: Impression: CIWA protocol was stopped, vitamin, thiamine p.o. I am also continuing his Ativan 0.5 mg IV push every 2 hours as needed. Joint visit with Joann Kilpatrick today, who is patient's biopsychologist. (4) EITAN (acute kidney injury): Impression: His creatinine continues to improve. Today it is 0.9 I have dc'ed IVF today, and encouraged the patient to walk the halls if he would like. . I have spent 40 minutes in the care of this patient today. This includes time [id number], review and ordering of diagnostic imaging and laboratory studies \ Monitoring the patient's signs symptoms, evaluation of medication effectiveness and patient's response to treatment.
[2024-08-07 05:51] LABS: BASOPHILS % (AUTO) 0.7 %; EOSINOPHILS # (AUTO) 0.4 10^3/uL (0.0-0.7); EOSINOPHILS % (AUTO) 6.4 %; HCT - HEMATOCRIT 25.1 % (42.0-52.0); HGB - HEMOGLOBIN 8.5 g/dL (14.0-18.0); LYMPHOCYTES # (AUTO) 2.1 10^3/uL (1.5-3.5); LYMPHOCYTES % (AUTO) 35.1 %; MEAN CORPUSCULAR HGB CONC 33.9 g/dL (32.0-36.0); MEAN CORPUSCULAR VOLUME 91.6 fL (80.0-94.0); MEAN PLATELET VOLUME 9.4 fL (7.4-11.4); MONOCYTES # (AUTO) 0.7 10^3/uL (0.0-1.0); MONOCYTES % (AUTO) 11.9 %; NEUTROPHILS # (AUTO) 2.7 10^3/uL (1.5-6.6); NEUTROPHILS % (AUTO) 45.4 %; PLT - PLATELET COUNT 229 10^3/uL (130-450); RED BLOOD COUNT 2.74 10^6/uL (4.70-6.10); WHITE BLOOD COUNT 5.9 x10^3/uL (4.8-10.8)
[2024-08-07 06:08] LABS: CREATININE 0.9 mg/dL (0.6-1.3); POTASSIUM 3.9 mmol/L (3.5-4.5)
--- NOTE | 2024-08-07 11:50 | Discharge Summary ---
"Discharge Summary Admit Date: 08/01/24 Discharge Date: 08/07/24 Discharging Provider: Brii Cunningham PA-C Primary Care Provider: Shiraz DAVILA Code Status: Attempt Resuscitation DIAGNOSES Discharge Diagnoses with Status of Each Condition: Candidal esophagitis, ongoing treatment in progress. Status post EGD biopsies and cultures remain pending. Opioid use disorder in remission, continue Suboxone on discharge Alcohol use disorder, ongoing. Start vitamins on discharge. He will be following up with his mental health provider this week Acute kidney injury, resolved HPI History of Present Illness: 44-year-old male H significant for polysubstance abuse who has been compliant with his Suboxone regimen states that he has had flulike symptoms for the past few days. He says he has hardly left his room. He says he has been lightheaded. He reports coffee-ground emesis for the last 3 days with melena. He reports history of chronic alcohol use, with last drink a few days ago. He reports a persistent epigastric pain with his nausea and vomiting that is worse with eating. In the ER, he was noted to have hemoglobin of 9.7, down from his normal at 10 or 11. Chemistry panel showed an acute kidney injury with a creatinine of 2.4. CT abdomen/pelvis was performed which showed infectious versus inflammatory esophagitis and gastritis. General surgery was contacted by ER provider, and recommendation was for him to be held overnight and undergo EGD in the morning. Hospitalist was contacted for observation CONSULTS | PROCEDURES Consultations: Dr. Jose J Rizo general surgery Procedures: Chest x-ray: No acute cardiopulmonary process Chest CT: Mild dependent atelectasis. Cardiomegaly without pericardial effusion. Small to moderate-sized hiatal hernia, questionable distal esophageal wall thickening which may represent esophagitis. CT abdomen pelvis infectious or inflammatory esophagitis and gastritis Endoscopy 08/01/2024: Diffusely moderately erythematous mucosa without active bleeding and no stigmata of bleeding found in the duodenal bulb. Stomach had normal mucosa. There was a small hiatal hernia. Localized white plaques found in the lower third of the esophagitis and distal esophagus. Biopsies were taken for histology fungal cultures were also sent. HOSPITAL COURSE Hospital Course: For az 4-year-old male who presented to the hospital with ongoing reflux symptoms for months which had become much worse. He was having difficulty eating and drinking he was having vomiting at home. He he was complaining of being lightheaded. His admission labs showed an anemia as well as an acute kidney injury likely related to his dehydration. He has a history of alcohol use disorder and opiate use disorder. He has been working with mental health practitioners to get treatment for these problems. General surgery was consulted and recommended endoscopy. His hemoglobin was followed and did not trend down to the point that he would need a blood transfusion. He continued to have severe epigastric pain. He was taken to the operating room for endoscopy and shown to have what appeared to be a severe candidal esophagitis. Fungal cultures are pending at this time. Due to the findings on EGD he remained in the hospital for several more days so that he could receive a total of 3 doses of IV flucanazole, and after 3 days his diet was advanced from clear liquids gradually to a regular diet. He tolerated this and was ready to discharge to home. He will be discharged to home on Protonix daily, Suboxone, nystatin, fluconazole for an additional 12 days orally as well as symptomatic medications for his esophageal discomfort. All of his regular home medications were continued. ALLERGIES Allergies Allergy/AdvReac Type Severity Reaction Status Date / Time No Known Drug Allergies Allergy Verified 08/01/24 14:52 MEDICATIONS Ambulatory Orders Medication Instructions Recorded Confirmed rosuvastatin 5 mg tablet 5 mg PO QDAY 90 days #90 tabs 04/08/24 08/02/24 tadalafil 20 mg tablet (Cialis) 20 mg PO QDAY PRN sexual activity 04/08/24 08/02/24 30 days #30 tabs gabapentin 300 mg capsule 300 mg PO TID #90 caps 04/27/24 08/02/24 hydroxyzine pamoate 50 mg capsule 50 mg PO BID PRN anxiety #60 caps 05/07/24 08/02/24 escitalopram oxalate 20 mg tablet 20 mg PO QDAY #90 tabs 06/11/24 08/02/24 atomoxetine 40 mg capsule 40 mg PO QAM #30 caps 07/15/24 08/02/24 quetiapine 25 mg tablet 25 mg PO QDAY #30 tabs 07/15/24 08/02/24 buprenorphine 8 mg-naloxone 2 mg 1.5 film buccal QDAY 28 days #42 ea 07/22/24 08/02/24 sublingual film (Suboxone) lisinopril 40 mg tablet 40 mg PO DAILY 08/02/24 08/06/24 aluminum-mag hydroxide-simethicone 30 ml PO Q4HR PRN Indigestion 08/07/24 200 mg-200 mg-20 mg/5 mL oral susp #3,000 mL (Mag-Al Plus) fluconazole 200 mg tablet 200 mg PO DAILY #12 tabs 08/07/24 lidocaine HCl 2 % mucosal solution 5 ml mucous membrane Q4H PRN Mouth 08/07/24 Sore Pain #300 mL nystatin 100,000 unit/mL oral 5 ml PO QID #250 mL 08/07/24 suspension oxycodone 5 mg tablet 5 mg PO Q4H PRN pain #5 tabs 08/07/24 pantoprazole 40 mg tablet,delayed 40 mg PO DAILY #180 tabs 08/07/24 release (Protonix) vit,calcium 27-ferrous 1 tab PO DAILY #90 tabs 08/07/24 fum 60 mg iron-folic acid 1 mg tablet (Trinatal Rx 1) PHYSICAL EXAM AT DISCHARGE Physical Exam Other/Comments: General Appearance: positive No acute distress and Alert Eyes Bilateral: positive Normal inspection ENT: positive Other (Black coating at tongue base no longer preset. ) Neck: positive Nml inspection Respiratory: positive Chest non-tender, No respiratory distress and Breath sounds nml Cardiovascular: positive Regular rate & rhythm Abdomen: positive Nml bowel sounds Back: positive Nml inspection (No CVA tenderness. ) Skin: positive Color nml and Warm Extremities: positive Non-tender, Full ROM, Nml appearance and No pedal edema Neurologic/Psychiatric: positive Oriented x3 and Motor nml LABS 08/07/24 05:27 08/07/24 05:27 FOLLOW UP Follow Up: PCP 7-10d for hospital followup. Dr Rizo for gen surg followup, review of bx findings and recommendations for repeat endoscopy (will also be due for screening colonoscopy in one year) Joann Kilpatrick, billing customer service representative for ongoing care. TIME SPENT Time Spent in Discharge (Minutes): 32 Discharge Plan Discharge Patient Disposition: Home, Self Care Condition: Stable Prescriptions: New fluconazole 200 mg tablet 200 mg PO DAILY Qty: 12 0RF lidocaine HCl 2 % Solution 5 ml mucous membrane Q4H PRN (Reason: Mouth Sore Pain) Qty: 300 0RF alum-mag hydroxide-simeth [Mag-Al Plus] 200-200-20 mg/5 mL Suspension 30 ml PO Q4HR PRN (Reason: Indigestion) Qty: 3000 0RF nystatin 100,000 unit/mL Suspension 5 ml PO QID Qty: 250 0RF Trinatal Rx 1 60 mg iron-1 mg Tablet 1 tab PO DAILY Qty: 90 0RF pantoprazole [Protonix] 40 mg tablet,delayed release (DR/EC) 40 mg PO DAILY Qty: 180 3RF oxycodone 5 mg tablet 5 mg PO Q4H PRN (Reason: pain) Qty: 5 0RF Continued gabapentin 300 mg capsule 300 mg PO TID Qty: 90 3RF Rx Instructions: increase to TID if tolerated. lisinopril 40 mg tablet 40 mg PO DAILY rosuvastatin 5 mg tablet 5 mg PO QDAY 90 Days Qty: 90 1RF tadalafil [Cialis] 20 mg tablet 20 mg PO QDAY PRN (Reason: sexual activity) 30 Days Qty: 30 2RF quetiapine 25 mg tablet 25 mg PO QDAY Qty: 30 2RF atomoxetine 40 mg capsule 40 mg PO QAM Qty: 30 2RF buprenorphine-naloxone [Suboxone] 8-2 mg film 1.5 film buccal QDAY 28 Days Qty: 42 0RF hydroxyzine pamoate 50 mg capsule 50 mg PO BID PRN (Reason: anxiety) Qty: 60 0RF Rx Instructions: 1 capsule twice a day as needed for anxiety escitalopram oxalate 20 mg tablet 20 mg PO QDAY Qty: 90 0RF Activity Restrictions: Activity as Tolerated Diet: Soft Health Concerns: You are a 44-year-old male who came into the hospital feeling very poorly. You had been vomiting blood and had pain in your upper abdomen and chest. You struggle with substance abuse and your alcohol use was exacerbating your problem. You are doing the best that you can to try to recover from your substance use and I think you are doing very well. It is important to stay hooked in to all of your support systems and do the things that you know you should be doing. Since you have been in the hospital we have diagnosed you with an esophagitis which is an inflammation of the esophagus and we believe this to be secondary to a fungal infection. There are still cultures and biopsies pending from the endoscopy that was done. I want you to follow-up with Dr. Lux regarding the results of these. He may want to repeat the endoscopy at some point. The inflammation in your esophagus caused bleeding. This caused you to be more anemic than you normally are. The anemia will cause you to be tired. Luckily, you have not been anemic enough to require a blood transfusion. I have sent labs regarding the iron levels in your blood. This would be a thing to follow-up with with your PCP. [facility] Shiraz should see you within 10 days of hospital discharge. I will be sending a note to him to make sure that he follows up with you regarding how things are going with your esophagitis pain, biopsy results, culture results. I am discharging you home on some new medications. The most important medication for you to take is the fluconazole. This is a pink tablet that you will take once a day for 12 days. It is like an antibiotic that kills fungus. Fungus is very slow-growing which is why you need to treated for a long time. The other medication that I am putting you on that kills fungus is called nystatin you need to use this 4 times a day. The best way to remember to take the medication 4 times a day is to take it breakfast lunch dinner and bedtime. If this is what you are doing, I would recommend that you do it after you eat and drink this is because I wanted to soak in to your swallowing tube (AKA the esophagus). I am putting you on medication to reduce acid in your GI tract this is called Protonix. Take this when you first get up in the morning with some water. Wait 30 minutes and then you may eat. I have prescribed vitamins. The reason I am prescribing you vitamins if they have iron and B vitamins these are things that you need to build red blood cells. The remainder of your new medications are symptomatic. I am prescribing Maalox as needed for symptoms lidocaine solution as needed for symptoms and oxycodone, only 5 tablets as needed for pain. With regards to your home medications I want you to continue all of your medications. This includes your Strattera, your Lexapro, your hydroxyzine as well as medications you are on for blood pressure and cholesterol. I want you to consider smoking cessation. As you know, tobacco is not good for lots of things! you are going to be tired and need rest. it is fine to take walks and move the way your body needs you to move, but do not push yourself too hard! Care Plan Goals: Apppointment with Joann Aquino 08/10 at 2:30pm. Assessment: you have many people in your life that care about you. do not forget that. 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 Print Language: Azeri Patient Instructions: ED Myranda Esophagitis Follow-up Care: Jose J Rizo MD [Provider Admit Priv/Credential] - (f/u endoscopy/candidal esophagitis) Delvin Weldon, MACHINE SIZER [Primary Care Provider] - Joann Downs, MSN, MACHINE SIZER-BC [Provider Admit Priv/Credential] -"
[2024-08-07 11:53] LABS: % IRON SATURATION 15 % (20-50); IRON 40 ug/dL (50-212); TOTAL IRON BINDING CAPACITY 274 ug/dL (250-450); TRANSFERRIN 196 mg/dL (203-362)
[2024-08-07 12:21] VITALS: BP 144/79; TEMP 98.1; O2SAT 98
== END 2024-08-07 12:22 | disposition home or self-care (01) | DRG 369 ==
LOC: MS2 14:45 → ED 14:45 → MS2 20:07
PROVIDERS: ADMIT Nurse Practitioner Acute Care; ATTEND Physician Assistant Medical
DX: F11.11 Opioid abuse, in remission; E86.0 Dehydration; F17.210 Nicotine dependence, cigarettes, uncomplicated; R79.89 Other specified abnormal findings of blood chemistry; B37.0 Candidal stomatitis; K44.9 Diaphragmatic hernia without obstruction or gangrene; R13.10 Dysphagia, unspecified; D62 Acute posthemorrhagic anemia; E83.42 Hypomagnesemia; N17.9 Acute kidney failure, unspecified; Z79.899 Other long term (current) drug therapy; B37.81 Candidal esophagitis; F10.20 Alcohol dependence, uncomplicated